=== PATIENT | female | born 1945 | race Caucasian/White ===

== ENCOUNTER 2023-08-27 11:03 | Emergency (ER) | payer MEDICARE, SELFPAY ==
[2023-08-27 11:04] VITALS: BP 121/77; PULSE 94; RESP 16; TEMP 36.6; O2SAT 97
[2023-08-27 11:39] LABS: Bedside Glucose 250 mg/dL (74-106)
--- NOTE | 2023-08-27 12:34 | EDS_ITS ---
HPI HPI - URI History of Present Illness Chief Complaint: Sore Throat Narrative Narrative: 78-year-old female with fever, chills, body aches. She has rhinorrhea and congestion. Symptom onset about 5 days ago. Patient concerned she has influenza. Patient states she called her friend for advice on what to do and her friend told her to call EMS to her house and they would test her for COVID- 19 and take a swab to the hospital however when EMS arrive they determined she would need to be transported for this. Patient denies any chest pain or shortness of breath. No nausea or vomiting. Patient states she recently moved here and does not have a PCP. She did not get an [id number] COVID-19 test. She believes she likely became sick over the s when she was around groups of people. ROS ROS ED Constitutional Constitutional ED: Reports chills and fever(s); Denies sweats Eyes Eyes: Denies blurry vision or change in vision ENT ENT ED: Denies ear pain or sore throat Cardiovascular Cardiovascular: Denies chest pain, palpitations or racing heartbeat Respiratory/Chest Respiratory/Chest: Reports cough; Denies dyspnea or sputum Gastrointestinal Gastrointestinal: Denies abdominal pain, constipation, diarrhea, nausea or vomiting Genitourinary Genitourinary ED: Denies dysuria, hematuria or urinary frequency Musculoskeletal Musculoskeletal: Reports myalgias; Denies arthralgias or neck pain Integumentary Denies abscess, Abrasions or rash Neurologic Neurologic: Denies headache(s), paresthesias or weakness Psychiatric Psychiatric: Denies anxiety, depression, suicidal ideation or suicidal thoughts Endocrine Endocrinology: Denies polydipsia or polyuria [facility] Medical History Depression Hypertension Type 2 diabetes mellitus Allergy/AdvReac Type Severity Reaction Status Date / Time No Known Allergies Allergy Verified 08/27/23 11:06 Social History Smoking Status: Never smoker EXAM Physical Exam Const Vital Signs: 08/27/23 11:04 Temperature 97.8 F Temperature Source Temporal Pulse Rate 94 Respiratory Rate 16 Blood Pressure 121/77 H Blood Pressure Mean 91 Pulse Ox 97 Oxygen Delivery Method Room Air Positive well nourished General Appearance ED: NAD; Negative for pallor HEENT Reports moist mucous membranes normocephalic and atraumatic Eyes PERRL and EOMs intact bilaterally Neck no lymphadenopathy and supple Resp normal respiratory effort and clear to auscultation bilaterally Auscultation: Negative for rales, rhonchi or wheezes Cardio Rate: regular rate Rhythm: regular rhythm GI non-tender Neuro oriented x3 and CN's II-XII intact bilaterally Sensorium / Orientation: alert Psych mental status grossly normal Mood & Affect: anxious Skin General Skin Exam: Negative for jaundice or pallor MDM MDM MDM Narrative Medical decision making narrative: Presenting with viral symptoms. Differential includes COVID-19, influenza, pneumonia. Vital signs are stable she is afebrile. Lungs are clear to auscultation bilaterally. Heart regular rate and rhythm without murmur. No red flag signs or symptoms. Patient tested for COVID-19 and influenza test positive for COVID. Patient is already on day 5 and no believe she needs any Paxlovid. Again her vital signs are normal. I feel she will likely recover the next couple of days. Return precautions were discussed. Impression: 1. COVID-19 Lab Data Attestation: I reviewed the patient's lab results. Labs: Laboratory Results - last 24 hr 08/27/23 11:22 POC Glucose 250 H Discharge Plan Triage Chief Complaint: Sore Throat ED Provider: Arsen Knapp Dx/Rx/DC Orders Instructions: Coronavirus Disease 2019 (COVID-19): Overview Primary Care Provider: NOT,DEFINED Referrals: Kashmir Silva MD [Med Staff - Active Staff] - 3-5 Days NOT,DEFINED [Primary Care Provider] - Disposition Disposition: Home, Self Care
[2023-08-27 13:07] VITALS: BP 120/83; PULSE 82; RESP 18; O2SAT 97
== END 2023-08-27 13:51 | disposition home or self-care (01) ==
PROVIDERS: Emergency Provider Student in an Organized Health Care Education/Training Program; Visit Provider Student in an Organized Health Care Education/Training Program
DX: U07.1 COVID-19 (principal); E11.9 Type 2 diabetes mellitus without complications
CPT/HCPCS: 82962; 87428; 99284

== ENCOUNTER 2023-09-13 13:36 | Observation (INO) | payer MEDICARE, SELFPAY ==
[2023-09-13 13:38] VITALS: BP 150/76; PULSE 100; RESP 11; TEMP 37.6; O2SAT 98; BMI 33.3
[2023-09-13 13:43] VITALS: BP 150/76; PULSE 97; RESP 16; TEMP 37.6; O2SAT 99
--- NOTE | 2023-09-13 14:11 | CT_ITS ---
STUDY: CT ABDOMEN AND PELVIS WITH CONTRAST REASON FOR EXAM: Female, 78 years old. Two-week history of cramping abdominal pain. RADIATION DOSAGE (If Supplied By Facility): CTDIvol = ( 20.57 ) mGy, DLP = ( 1095.55 ) mGycm TECHNIQUE: Transaxial images were obtained from the dome of the diaphragm to the symphysis pubis without oral contrast. IV 100mL Isovue-300 was administered. Sagittal and coronal images were reconstructed. Individualized dose optimization techniques were used for this CT. COMPARISON: None. FINDINGS: Calcified granuloma in the right lower lobe. Coronary artery calcification. Normal liver. Possible sludge or small gallstones in the gallbladder lumen. Normal spleen. Normal pancreas. Normal bilateral adrenal glands. Bilateral renal cysts. The largest cyst in the left kidney measures 2.8 cm x 2.6 cm. There is a nonobstructive 6.6 mm calculus in the lower pole calyx of the right kidney. There is a small hiatal hernia. Normal small intestine. There is circumferential wall thickening of the distal descending colon at the junction with the sigmoid colon with pericolonic inflammatory changes. This may represent colitis although a mass cannot be excluded. This measures 4.1 cm x 4.9 cm. The appendix is visualized and appears normal. There is diffuse atherosclerotic calcification of the abdominal aorta and its major visceral branches., without a demonstrated aneurysm. Normal inferior vena cava. Normal retroperitoneum. Normal urinary bladder. Normal abdominal wall. Bilateral total hip replacement causes beam hardening artifact in the pelvis. The pelvis cannot be assessed due to the artifacts. Diffuse degenerative changes of the lumbar spine. CT/Abdomen/Pelvis W IV Cont ONLY IMPRESSION: Inflammatory changes and possible mass lesion in the distal descending colon at the junction with the sigmoid colon as described. Bilateral renal cysts. Nonobstructive right intrarenal calculus. Questionable small gallstones versus sludge in the gallbladder lumen. Electronically Signed: Adam Salazar MD at 15:34 EST ,
--- NOTE | 2023-09-13 14:16 | EDS_ITS ---
HPI HPI - GI History of Present Illness Chief Complaint: Abd Pain Detail of Chief Complaint: Abdominal pain Informant: patient Narrative Narrative: Patient presents to the emergency room with complaint of abdominal pain that she has had off and on since the day after [place]. Patient states that she started getting sick with sore throat and little bit of a cough and came to the emergency department where she was diagnosed with COVID-19 and was told to take ibuprofen. Since then she has had intermittent abdominal cramping. Cramping worse over the last several days. She denies nausea or vomiting or diarrhea. She denies urinary symptoms. She denies blood in her stool or black tarry stool. Patient states she had a follow-up appointment with a physician 3 days ago and was told to just wear a mask for the next 4 days. Patient tells me she has had no prior abdominal surgeries. PFSH PFS Medical History Depression Hypertension Type 2 diabetes mellitus Home Medications aspirin 81 mg capsule 81 mg PO DAILY 09/13/23 [History Last Taken Unknown] atenolol 50 mg tablet 50 mg PO Q24H 09/13/23 [History Last Taken Unknown] levothyroxine 25 mcg tablet 25 mcg PO DAILY 09/13/23 [History Last Taken Unknown] lisinopril 10 mg tablet 10 mg PO DAILY 09/13/23 [History Last Taken Unknown] metformin 500 mg tablet,extended release 24 hr 500 mg PO DAILY 09/13/23 [History Last Taken Unknown] sertraline 50 mg tablet 50 mg PO DAILY 09/13/23 [History Last Taken Unknown] simvastatin 80 mg tablet 80 mg PO QHS 09/13/23 [History Last Taken Unknown] triamterene 37.5 mg-hydrochlorothiazide 25 mg capsule 1 cap PO DAILY 09/13/23 [H istory Last Taken Unknown] Allergy/AdvReac Type Severity Reaction Status Date / Time No Known Allergies Allergy Verified 08/27/23 11:06 Social History Smoking Status: Never smoker ROS ROS ED Review of Systems ROS Unobtainable: other Constitutional Constitutional ED: Reports lethargy; Denies chills, fever(s), sweats or weight loss Eyes Eyes: Denies blurry vision, change in vision or diplopia ENT ENT ED: Denies rhinorrhea or sore throat Cardiovascular Cardiovascular: Denies chest pain, orthopnea or racing heartbeat Respiratory/Chest Respiratory/Chest: Denies cough, dyspnea, dyspnea on exertion, orthopnea or sputum Gastrointestinal Gastrointestinal: Reports abdominal pain; Denies diarrhea, nausea or vomiting Genitourinary Genitourinary ED: Denies dysuria, hematuria or urinary frequency Musculoskeletal Musculoskeletal: Denies arthralgias, back pain, myalgias or neck pain Integumentary Denies abscess, Abrasions or rash Neurologic Neurologic: Denies headache(s) or weakness Psychiatric Psychiatric: Denies anxiety, depression or suicidal thoughts Endocrine Endocrinology: Denies polydipsia, polyphagia or polyuria Hematologic/Lymphatic Hematologic/Lymphatic: Denies easy bleeding, easy bruising or lymphadenopathy Allergic/Immunologic Allergic/Immunologic ED: Denies mouth swelling, tongue swelling or urticaria EXAM Physical Exam Const Vital Signs: 09/13/23 13:38 09/13/23 13:43 09/13/23 15:02 Temperature 99.6 F H 99.6 F H Temperature Source Oral Oral Pulse Rate 100 97 85 Respiratory Rate 11 L 16 Blood Pressure 150/76 H 150/76 H 108/80 Blood Pressure Mean 100 100 89 Pulse Ox 98 99 Oxygen Delivery Method Room Air Room Air Positive well nourished and well developed General Appearance ED: well developed and NAD HEENT Reports TM's clear and moist mucous membranes normocephalic and atraumatic; Negative for trauma or tenderness Tympanic Membrane ED: Yes TM's clear Eyes PERRL and EOMs intact bilaterally General Eye ED: Negative for pale conjunctiva or scleral icterus Neck no lymphadenopathy, supple and no JVD General: Negative for tenderness Chest Wall inspection of chest normal and palpation of chest normal Chest: Negative for tenderness Resp normal respiratory effort and clear to auscultation bilaterally Effort and Inspection: Negative for respiratory distress or pain with movement Auscultation: Negative for rhonchi, wheezes or diminished lung sounds Cardio regular rate, regular rhythm, S1 normal heart sound, S2 normal heart sound and no murmurs Peripheral Pulses: pulses 2+ throughout GI normal to inspection, nondistended, normoactive bowel sounds, soft to palpation, non-distended and no masses GI Narrative: Mild diffuse tenderness over the suprapubic region as well as diffusely. There is no rebound, rigidity, or peroneal signs. No masses palpated. Back/Spine no CVA tenderness and no thoracic nor lumbar tenderness Extremity normal to inspection General Extremety ED: Negative for edema General Extremity: Negative for edema Neuro oriented x3, CN's II-XII intact bilaterally, no sensory deficits noted and gait normal Sensorium / Orientation: awake, alert, oriented to person, oriented to place and oriented to time Motor Exam: strength 5/5 throughout and strength abnormal Psych mental status grossly normal Skin no rashes or lesions noted and no wounds MDM MDM MDM Narrative Medical decision making narrative: Presents with intermittent abdominal pain for about 3 weeks. In the differential would be diverticulitis versus IBS or constipation or other acute process. IV line established. CBC with differential obtained showed a normal white count of 10.7 with hemoglobin 13 and platelet count of 191. Chemistries unremarkable. LFTs normal. Lactate normal at 1.2. Lipase normal at 36. Urinalysis was normal. CT scan of the abdomen pelvis with IV contrast showed a left colon thickening which could indicate colitis versus an inflammatory mass. Discussed results with patient. Also spoke with general surgeon on-call Dr. Galeano who will evaluate patient in the emergency department. I was asked to have patient admitted by medicine. I did start patient on Cipro and Flagyl. Will discuss with hospitalist for admission. Lab Data Attestation: I reviewed the patient's lab results. Labs: Laboratory Results - last 24 hr 09/13/23 09/13/23 13:45 15:00 WBC 10.7 RBC 4.40 Hgb 13.1 Hct 39.9 MCV 90.7 MCH 29.8 MCHC 32.8 RDW Std Deviation 40.8 RDW Coeff of Cristiane 12.2 Plt Count 191 MPV 11.3 Immature Gran % (Auto) 0.600 Neut % (Auto) 79.3 H Lymph % (Auto) 12.4 L [place] % (Auto) 6.9 Eos % (Auto) 0.4 Baso % (Auto) 0.4 Absolute Neuts (auto) 8.5 H Absolute Lymphs (auto) 1.32 Nucleated RBC % 0 Sodium 139 Potassium 3.6 Chloride 107 Carbon Dioxide 24.0 Anion Gap 8 BUN 10 Creatinine 0.70 Estim Creat Clear Calc 43.63 Est GFR (MDRD) Af Amer 104 Est GFR (MDRD) Non-Af 86 BUN/Creatinine Ratio 14.3 Glucose 126 H Lactic Acid 1.2 Calcium 9.0 Total Bilirubin 0.80 AST 16 ALT 16 Alkaline Phosphatase 95 Total Protein 7.3 Albumin 3.4 Globulin 3.9 Albumin/Globulin Ratio 0.9 Lipase 36 Urine Color Yellow Urine Clarity Clear Urine pH 6.5 Ur Specific [place] 1.010 Urine Protein 15 H Urine Glucose (UA) Normal Urine Ketones Negative Urine Occult Blood Negative Urine Nitrite Negative Urine Bilirubin Negative Urine Urobilinogen Normal Ur Leukocyte Esterase 25 H Urine RBC 0 SEEN Urine WBC 0-5 SEEN Ur Squamous Epith Cells 0-5 SEEN Urine Bacteria RARE Urine Mucus 0 SEEN Radiography Diagnostic Testing: Clinical Impression(s) from Imaging Studies Abdomen/Pelvis CT 09/13/23 14:11 IMPRESSION: Inflammatory changes and possible mass lesion in the distal descending colon at the junction with the sigmoid colon as described. Bilateral renal cysts. Nonobstructive right intrarenal calculus. Questionable small gallstones versus sludge in the gallbladder lumen. Electronically Signed: Adam Salazar MD at 15:34 EST , Discharge Plan Dx/Rx/DC Orders Clinical Impression: Colonic mass, Colitis, Abdominal pain Disposition Disposition: Acute Care [facility]
[2023-09-13] MEDS: 0.9% Normal Saline (1000mL) 1,000 ML 125 ML IV ×2 (14:21→22:07)
[2023-09-13 14:28] LABS: Absolute Lymphocyte Count 1.32 X10^3/uL (0.83-4.51); Absolute Neutrophil Count 8.5 X10^3/uL (2.0-7.7); Basophil# 0.04 X10^3/uL; Basophil% 0.4 % (0-1); Eosinophil# 0.04 X10^3/uL; Eosinophils% 0.4 % (0-5); Hematocrit 39.9 % (37-47); Hemoglobin 13.1 g/dL (12.0-15.0); Lymphocyte # 1.32 X10^3/ul (0.83-4.51); Lymphocyte % 12.4 % (19-41); Mean Corp Hgb Conc 32.8 g/dL (32-36); Mean Corpuscular Hgb 29.8 pg (27.0-32.0); Mean Corpuscular Volume 90.7 fL (81-99); Mean Platelet Vol. 11.3 fl (6.2-12.0); Monocyte# 0.74 X10^3/uL; Monocyte% 6.9 % (0-10); NRBC Flagged by Analyzer 0 % (0-5); Neutrophil # 8.45 X10^3/uL (2.7-7.7); Neutrophil % 79.3 % (47-70); Platelet Count 191 K/mm3 (150-450); RBC Distribution Width CV 12.2 % (11.6-14.6); RBC Distribution Width SD 40.8 fl (35.1-43.9); White Blood Count 10.7 K/mm3 (4.4-11.0)
[2023-09-13 14:40] LABS: Lactic Acid 1.2 mmol/L (0.4-1.9)
[2023-09-13 14:41] LABS: ALB/GLOB Ratio 0.9 RATIO (0.9-2.4); AST(SGOT) 16 U/L (15-37); Alanine Aminotransfer ALT/SGPT 16 U/L (13-56); Albumin, Serum 3.4 g/dL (3.2-5.0); Alkaline Phosphatase 95 U/L (45-117); Anion Gap 8 (5-15); BUN 10 mg/dL (7-18); BUN/Creat Ratio 14.3 RATIO (10-20); Chloride 107 mmol/L (98-107); EST Glomerular Filtration Rate 86 mL/min (>60); Est Glom Filt Rate - Afr Amer 104 mL/min (>60); Estimated Creatinine Clearance 43.63 ml/min; Globulin 3.9 g/dL (2.2-4.2); Glucose 126 mg/dL (74-106); Lipase 36 U/L (13-75); Potassium 3.6 mmol/L (3.5-5.1); Protein, Total 7.3 g/dL (6.4-8.2); Sodium Level 139 mmol/L (136-145)
[2023-09-13 15:02] VITALS: BP 108/80; PULSE 85
[2023-09-13 15:09] LABS: Mucous, Urine 0 SEEN /hpf (<or=2+); Red Blood Cells-Urine 0 SEEN /hpf (0-5)
[2023-09-13 15:13] LABS: Color, Urine Yellow (Yellow); Glucose, Dipstick Normal (Normal); Ketone-Dipstick Negative (Negative); Leukocyte Esterase-Dipstick 25 /ul (Negative); Nitrite-Dipstick Negative (Negative); Occult Blood-Urine Negative /ul (Negative); Protein-Dipstick 15 mg/dl (Negative); Urine Bilirubin Dipstick Negative (Negative); Urine Clarity Clear (Clear); Urine Urobilinogen Normal (Normal); Urine pH 6.5 (5.0 - 8.0)
[2023-09-13 15:21] LABS: Bacteria RARE /hpf (None Seen); Squamous Epithelial Cells - UA 0-5 SEEN /hpf (5-10); White Blood Cells 0-5 SEEN /hpf (0-5)
[2023-09-13] MEDS: Ciprofloxacin 400 MG/200 ML BAG 200 MG IV (15:50)
--- NOTE | 2023-09-13 15:58 | NURSING ---
DR RIMMA LEIVA
--- NOTE | 2023-09-13 16:04 | NURSING ---
MED SURG SHANKS ABD PAIN, COLITIS, COLON MASS
[2023-09-13] MEDS: Ondansetron 4 MG/2 ML Vial IV (16:18)
[2023-09-13] MEDS: Morphine 4 MG/ML Syringe IV ×2 (16:20→17:48)
--- NOTE | 2023-09-13 16:27 | HP.PCM.HOS_ITS ---
HPI - General General Date of Admission: 09/13/23 Date of Service: 09/13/23 Chief Complaint: Abd pain/cramping HPI Narrative JOSEFA AYALA, is a 78-year-old female history of depression, hypertension, type 2 diabetes presented to [facility] 09/13/2023 with abdominal pain off and on since . She has been feeling that she has been getting sick with sore throat and slight cough and had presented to the emergen cy department and was diagnosed with COVID and told to take ibuprofen. Since that time she has been having intermittent abdominal cramping that is worsened over the past several days without urinary symptoms, nausea, vomiting or diarrhea. In ED lab workup fairly unremarkable however CT of abdomen with inflammatory changes and possible mass lesion in distal descending colon at the junction with the sigmoid colon and questionable small gallstones versus sludge in gallbladder lumen. Case was discussed with surgeon who will see patient in consult, hospitalist contacted for admission. Patient seen at bedside and does report the cramping over the past couple weeks mostly in her lower abdomen but last night it was much worse and as it has not been improving that prompted her to come to the ED. She reports all other COVID symptoms resolved and has had no fevers or chills, no diarrhea and denies nausea or vomiting. Does not drink fluids very well but said her appetite is good. No other focal complaints. [facility] Medical History (Updated 09/13/23 @ 16:[address] Mary Anne Pyle MD) Depression Hypertension Type 2 diabetes mellitus Home Medications aspirin 81 mg tablet,delayed release (Adult Low Dose Aspirin) 81 mg PO DAILY HEART HEALTH 09/13/23 [History Last Taken 09/13/23] atenolol 50 mg tablet 50 mg PO Q24H BLOOD PRESSURE 09/13/23 [History Last Taken 09/13/23] calcium carbonate 600 mg-vitamin D3 20 mcg (800 unit) chewable tablet (Caltrate 600 plus D) 1 tab PO DAILY SUPPLEMENT 09/13/23 [History Last Taken 09/13/23] levothyroxine 25 mcg tablet 25 mcg PO DAILY THYROID 09/13/23 [History Last Taken 09/13/23] lisinopril 10 mg tablet 10 mg PO DAILY BLOOD PRESSURE 09/13/23 [History Last Taken 09/13/23] metformin 500 mg tablet,extended release 24 hr 500 mg PO DAILY DIABETES 09/13/23 [History Last Taken 09/13/23] multivitamin 1 tab PO DAILY HEART HEALTH 09/13/23 [History Last Taken 09/13/23] sertraline 50 mg tablet 50 mg PO DAILY DEPRESSION 09/13/23 [History Last Taken 09/13/23] simvastatin 80 mg tablet 80 mg PO QHS CHOLESTEROL 09/13/23 [History Last Taken 09/12/23] triamterene 37.5 mg-hydrochlorothiazide 25 mg capsule 1 cap PO DAILY BLOOD PRESSURE 09/13/23 [History Last Taken 09/13/23] Allergy/AdvReac Type Severity Reaction Status Date / Time No Known Allergies Allergy Verified 08/27/23 11:06 Social History Smoking Status: Never smoker ROS ROS Narrative General: Denies fever/chills HENT: Denies headache, denies stuffy nose, denies sore throat EYES: Denies changes in vision Resp: Denies cough, denies shortness of breath Cardiac: Denies chest pain GI: Has had abdominal cramping, denies changes in bowel, denies nausea/vomiting : Denies changes in urination Extremity: Denies swelling MSK: Denies weakness Neuro: Denies any numbness/tingling Heme: Denies any bleeding or bruising Skin: Denies rashes Psychiatric: Feels a little bit out of it Vital Signs Vital Signs Vital Signs: 09/13/23 13:38 09/13/23 13:43 09/13/23 15:02 Temperature 99.6 F H 99.6 F H Temperature Source Oral Oral Pulse Rate 100 97 85 Respiratory Rate 11 L 16 Blood Pressure 150/76 H 150/76 H 108/80 Blood Pressure Mean 100 100 89 Pulse Ox 98 99 Oxygen Delivery Method Room Air Room Air Weight Weight: 96.4 kg Body Mass Index (BMI) 33.3 Physical Exam Narrative General: Alert, no apparent distress HEENT: Atraumatic, normocephalic Eyes: Anicteric, normal conjunctiva, extraocular movements grossly intact Neck: Supple Respiratory: Clear to auscultation bilaterally, normal respiratory effort Cardiovascular: Regular rate and rhythm GI: Soft, no rebound, guarding, rigidity, nondistended Extremities: No edema Musculoskeletal: Moving all extremities Neuro: No overt focal neurological deficits Skin: No rashes appreciated Psych: Cooperative Results Lab / Micro Data 09/13/23 13:45 09/13/23 13:45 Labs: Laboratory Results - last 24 hr 09/13/23 13:45: WBC 10.7, RBC 4.40, Hgb 13.1, Hct 39.9, MCV 90.7, MCH 29.8, MCHC 32.8, RDW Std Deviation 40.8, RDW Coeff of Cristiane 12.2, Plt Count 191, MPV 11.3, Immature Gran % (Auto) 0.600, Neut % (Auto) 79.3 H, Lymph % (Auto) 12.4 L, [place] % (Auto) 6.9, Eos % (Auto) 0.4, Baso % (Auto) 0.4, Absolute Neuts (auto) 8.5 H, Absolute Lymphs (auto) 1.32, Nucleated RBC % 0, Sodium 139, Potassium 3.6, Chloride 107, Carbon Dioxide 24.0, Anion Gap 8, BUN 10, Creatinine 0.70, Estim Creat Clear Calc 43.63, Est GFR (MDRD) Af Amer 104, Est GFR (MDRD) Non-Af 86, BUN/Creatinine Ratio 14.3, Glucose 126 H, Lactic Acid 1.2, Calcium 9.0, Total Bilirubin 0.80, AST 16, ALT 16, Alkaline Phosphatase 95, Total Protein 7.3, Albumin 3.4, Globulin 3.9, Albumin/Globulin Ratio 0.9, Lipase 36 09/13/23 15:00: Urine Color Yellow, Urine Clarity Clear, Urine pH 6.5, Ur Specific [place] 1.010, Urine Protein 15 H, Urine Glucose (UA) Normal, Urine Ketones Negative, Urine Occult Blood Negative, Urine Nitrite Negative, Urine Bilirubin Negative, Urine Urobilinogen Normal, Ur Leukocyte Esterase 25 H, Urine RBC 0 SEEN, Urine WBC 0-5 SEEN, Ur Squamous Epith Cells 0-5 SEEN, Urine Bacteria RARE, Urine Mucus 0 SEEN Imagaing Radiology Impression Abdomen/Pelvis CT 09/13/23 14:11 IMPRESSION: Inflammatory changes and possible mass lesion in the distal descending colon at the junction with the sigmoid colon as described. Bilateral renal cysts. Nonobstructive right intrarenal calculus. Questionable small gallstones versus sludge in the gallbladder lumen. Electronically Signed: Adam Salazar MD at 15:34 EST , Assessment & Plan Assessment/Plan (1) Abdominal pain: (2) Type 2 diabetes mellitus: (3) Depression: (4) Hypertension: PLAN: Plan #Colitis versus colonic mass -CT of abdomen with inflammatory changes and possible mass lesion in distal descending colon at the junction with the sigmoid colon -Patient with low-grade temp and was started on Cipro and Flagyl in ED, will continue antibiotics at this time -Surgery consulted -IV fluids and supportive care -Clear liquid diet -Discussed with surgery, unclear if infectious versus ischemic versus mass, may have rectal contrast CT tomorrow #Hypothyroidism -Continue Synthroid #Type 2 diabetes mellitus -Glucose checks and sliding scale insulin -Holding metformin # Hypertension -Continue atenolol and lisinopril -Given patient seems to be somewhat dehydrated so we will hold triamterene hydrochlorothiazide today # History of depression -Continue sertraline #DVT ppx: Lovenox subcu Mary Anne Pyle MD Time spent in the patient's overall evaluation,decision-making process, review of diagnostic data, adjustment of management, discussion with other providers, nursing nursing and ancillary staff involved in patient's care documentation, 55 minutes Charges/Coding Visit Charges Inpatient E&M: 37631 Init Hosp L2
--- NOTE | 2023-09-13 17:30 | EX.PCM.CON.S ---
Assessment & Plan Assessment/Plan (1) Colitis: PLAN: Plan This is an 78-year-old female, reasonably healthy for her age, who presents with a little over 2 weeks of crampy abdominal discomfort in the midst of a recent COVID infection and some intensification of that crampy symptom in the last 24 hours. Patient has no leukocytosis with CBC, but there is a left shift and CT imaging of the abdomen and pelvis is suggestive of colitis?although radiology states they cannot exclude a mass. Given the acuity of patient's time course as far as the intensification of her pain symptoms and absence of obstructive symptomology, per history, I am inclined to believe this is a presentation of segmental colitis. Patient does have a significant atherosclerotic burden as evidenced in her calcification seen on CT imaging. She also acknowledges that she has not done the best recently (or as a general rule) that staying hydrated. I would like to empirically treat her for both possible etiologies and tomorrow obtain a rectal contrast CT to try to better determine if the finding in her sigmoid colon represents a mass lesion versus inflammation. If it seems doubly likely that this is inflammation I would plan for outpatient diagnostic colonoscopy as it has been many years since patient's past endoscopic evaluation and her present health otherwise would permit her as a candidate to undergo this procedure. Therefore recommend: ? Clear liquid diet ? IV fluid resuscitation with empiric IV antibiotic therapy ? Repeat CT imaging with rectal and IV contrast tomorrow ? Serial abdominal exams Above has been discussed with patient's primary hospitalist, Dr. Pyle. HPI Consult Data Date of Consult: 09/13/23 HPI Narrative Reason for Consultation: Chronic crampy abdominal pain HPI Narrative: JOSEFA AYALA, is a 78 F, with a past medical history of depression, hypertension, diabetes, arthritis, and fibromyalgia, who presents to [facility] with complaints of belly cramps that began the day after Thanksgiving. She shares that her appetite and bowel frequency remain normal throughout these cramps and she denies any recent straining, notice of bloody stools, or stool caliber change. She simply shares that the cramps became more severe yesterday and they have persisted today. She does acknowledge that she was diagnosed with COVID in the past couple of weeks and the pain seemed to persist with that diagnosis. She denies noting any fevers at home. Patient's ER workup is notable for CBC with normal WBC and normal lactate. CT imaging of the abdomen pelvis shows a area 4.1 x 4.9 cm in the sigmoid colon that is thickened and shows haziness which may represent colitis , but mass cannot be excluded . Ms. Ayala is recently relocated to the [place] area as of 08/15/2023 after spending some significant time away living in [place] with her daughter. She shares that it has been probably 20 years since her last colonoscopy and she did have at least a couple . She also reports that she is having difficulty recalling other historical items, but does believe that her father had colon cancer before he at the age of 56. [facility] Medical History (Updated 09/13/23 @ 16:[address] Mary Anne Pyle MD) Depression Hypertension Type 2 diabetes mellitus Home Medications aspirin 81 mg tablet,delayed release (Adult Low Dose Aspirin) 81 mg PO DAILY HEART HEALTH 09/13/23 [History Last Taken 09/13/23] atenolol 50 mg tablet 50 mg PO Q24H BLOOD PRESSURE 09/13/23 [History Last Taken 09/13/23] calcium carbonate 600 mg-vitamin D3 20 mcg (800 unit) chewable tablet (Caltrate 600 plus D) 1 tab PO DAILY SUPPLEMENT 09/13/23 [History Last Taken 09/13/23] levothyroxine 25 mcg tablet 25 mcg PO DAILY THYROID 09/13/23 [History Last Taken 09/13/23] lisinopril 10 mg tablet 10 mg PO DAILY BLOOD PRESSURE 09/13/23 [History Last Taken 09/13/23] metformin 500 mg tablet,extended release 24 hr 500 mg PO DAILY DIABETES 09/13/23 [History Last Taken 09/13/23] multivitamin 1 tab PO DAILY HEART HEALTH 09/13/23 [History Last Taken 09/13/23] sertraline 50 mg tablet 50 mg PO DAILY DEPRESSION 09/13/23 [History Last Taken 09/13/23] simvastatin 80 mg tablet 80 mg PO QHS CHOLESTEROL 09/13/23 [History Last Taken 09/12/23] triamterene 37.5 mg-hydrochlorothiazide 25 mg capsule 1 cap PO DAILY BLOOD PRESSURE 09/13/23 [History Last Taken 09/13/23] Allergy/AdvReac Type Severity Reaction Status Date / Time No Known Allergies Allergy Verified 08/27/23 11:06 Social History Smoking Status: Never smoker ROS Gastrointestinal Gastrointestinal: Reports abdominal pain; Denies change in bowel habits, constipation, diarrhea, hematochezia, melena, nausea, rectal bleeding or vomiting Lab / Micro Data 09/13/23 13:45 09/13/23 13:45 Labs: Laboratory Results - last 24 hr 09/13/23 13:45: WBC 10.7, RBC 4.40, Hgb 13.1, Hct 39.9, MCV 90.7, MCH 29.8, MCHC 32.8, RDW Std Deviation 40.8, RDW Coeff of Cristiane 12.2, Plt Count 191, MPV 11.3, Immature Gran % (Auto) 0.600, Neut % (Auto) 79.3 H, Lymph % (Auto) 12.4 L, [place] % (Auto) 6.9, Eos % (Auto) 0.4, Baso % (Auto) 0.4, Absolute Neuts (auto) 8.5 H, Absolute Lymphs (auto) 1.32, Nucleated RBC % 0, Sodium 139, Potassium 3.6, Chloride 107, Carbon Dioxide 24.0, Anion Gap 8, BUN 10, Creatinine 0.70, Estim Creat Clear Calc 43.63, Est GFR (MDRD) Af Amer 104, Est GFR (MDRD) Non-Af 86, BUN/Creatinine Ratio 14.3, Glucose 126 H, Lactic Acid 1.2, Calcium 9.0, Total Bilirubin 0.80, AST 16, ALT 16, Alkaline Phosphatase 95, Total Protein 7.3, Albumin 3.4, Globulin 3.9, Albumin/Globulin Ratio 0.9, Lipase 36 09/13/23 15:00: Urine Color Yellow, Urine Clarity Clear, Urine pH 6.5, Ur Specific [place] 1.010, Urine Protein 15 H, Urine Glucose (UA) Normal, Urine Ketones Negative, Urine Occult Blood Negative, Urine Nitrite Negative, Urine Bilirubin Negative, Urine Urobilinogen Normal, Ur Leukocyte Esterase 25 H, Urine RBC 0 SEEN, Urine WBC 0-5 SEEN, Ur Squamous Epith Cells 0-5 SEEN, Urine Bacteria RARE, Urine Mucus 0 SEEN Imagaing Radiology Impression Abdomen/Pelvis CT 09/13/23 14:11 IMPRESSION: Inflammatory changes and possible mass lesion in the distal descending colon at the junction with the sigmoid colon as described. Bilateral renal cysts. Nonobstructive right intrarenal calculus. Questionable small gallstones versus sludge in the gallbladder lumen. Electronically Signed: Adam Salazar MD at 15:34 EST , Charges/Coding Visit Charges Inpatient E&M: 94702 Subs Hosp L2
[2023-09-13] MEDS: metroNIDAZOLE 500 MG/100 ML BAG 100 MG IV (17:45)
--- OUTSIDE RECORDS SUMMARY | 2023-09-13 19:10 | XMS RPT_ITS | CCD ---
Author Name Unknown Address [address] [facility] [facility] [address] [place] [address] Organization [facility] Care Team Providers Care Marketing Community Liaison Name Role Phone YOBANI CONSTANCE L Primary Care Unavailable YOBANI, CONSTANCE L Attending Unavailable YOBANI, CONSTANCE L Primary Care Unavailable YOBANI, CONSTANCE L Attending Unavailable YOBANI, CONSTANCE L Primary Care Unavailable JOSR CAMPA Attending Unavailab le YOBANI, CONSTANCE L Referring Unavailable YOBANI, CONSTANCE L Primary Care Unavailable YOBANI, CONSTANCE L Primary Care Unavailable YOBANI, CONSTANCE L Attending Unavailable YOBANI, CONSTANCE L Referring Unavailable Problems Active Problems Problem Classification Problem Date Documented Date Episodic/Chronic Diabetes mellitus with complications (1 source) Type 2 diabetes mellitus with diabetic polyneuropathy; Translations: [Type 2 diabetes mellitus with diabetic polyneuropathy (HCC)] Onset: 01-11-2023 Chronic Diabetes mellitus without complication (2 sources) Type 2 diabetes mellitus without complications; Translations: [Diabetes mellitus] Onset: 07-11-2023 Chronic Disorders of lipid metabolism (2 sources) Hyperlipidemia, unspecified; Translations: [Hyperlipidemia] Onset: 07-11-2023 Chronic Essential hypertension (2 sources) Essential (primary) hypertension; Translations: [Hypertensive disorder] Onset: 07-11-2023 Chronic Immunizations and screening for infectious disease (2 sources) Encounter for immunization; Translations: [Encounter for screening for other viral diseases] Onset: 01-05-2023 Episodic Mood disorders (2 sources) Major depressive disorder, recurrent, moderate; Translations: [Depression] Onset: 01-05-2023 Chronic Other nervous system disorders (1 source) Polyneuropathy, unspecified; Translations: [Polyneuropathy, unspecified] Onset: 01-11-2023 Chronic Thyroid disorders (2 sources) Hypothyroidism, unspecified; Translations: [Hypothyroidism] Onset: 07-11-2023 Chronic Unclassified (1 source) Medicare Annual Onset: 07-11-2023 Past or Other Problems Problem Classification Problem Date Documented Da te Episodic/Chronic Mycoses (1 source) Tinea unguium; Translations: [Tinea unguium] Onset: 01-11-2023 Episodic Other connective tissue disease (1 source) Pain in right toe(s); Translations: [Pain in right toe(s)] Onset: 01-11-2023 Episodic Other connective tissue disease (1 source) Pain in left toe(s); Translations: [Pain in left toe(s)] Onset: 01-11-2023 Episodic Other screening for suspected conditions (not mental disorders or infectious disease) (1 source) Encounter for screening mammogram for malignant neoplasm of breast; Translations: [Encounter for screening mammogram for malignant neoplasm of breast] Onset: 02-02-2023 Episodic Results Test Name Value Interpretation Reference Range Facil ity Encounters Encounter Date Encounter Type Care Provider Facility Start: 07-11-2023 End: 07-11-2023 ambulatory [facility] work Start: 07-11-2023 Encounter for genera l adult medical examination without abnormal findings [facility] Start: 02-02-2023 End: 02-03-2023 ambulatory [facility] work Start: 01-11-2023 End: 01-11-2023 ambulatory [facility] work Start: 01-05-2023 End: 01-05-2023 ambulatory [facility] work Procedures Date Procedure Procedure Detail Performing Clinician Start: 01-11-2023 Follow-up visit Follow-up JOSR CAMPA Start: 08-22-2022 Lipid panel CONSTANCE KAUR Payers Date Payer Category Payer Unknown [id number] 1945 Unknown [id number] 1945 Unknown [id number] 1945 Unknown [id number] 1945 Unknown [id number] Medicare [id number] Clinical Notes 03-16-2021 to 07-11-2023 Note Date & Type Note Facility 07-11-2023 Note Encounter Department : [facility] Progress Notes by MATTHEW Carpio at 07/11/2023 12:40 PM Author: MATTHEW CarpioService: -Author Type: Nurse Practitioner Filed: 07/11/2023 1:36 PMEncounter Date: 07/11/2023Status: Signed Computer Systems Support Specialist: MATTHEW Carpio (Nurse Practitioner) Estela Perez [address] [place] [id number] : 78 y.o.: 1945hone: [phone] (home) Encounter Date: 07/11/2023 Vitals BP 118/68 Pulse 89 Resp 17 Ht 5' 4 (1.626 m) Wt 204 lb 3.2 oz (92.6 kg) SpO2 98% BMI 35.05 kg/m? Chief Complaint Chief Complaint Patient presents with -Medicare Annual -Hypertension -Hyperlipidemia -Diabetes -Hypothyroidism HPI Patient presents today for Medicare wellness visit and also checkup on diabetes, hyperlipidemia, hypothyroidism and hypertension Health maintenance due: Diabetic foot exam-will be completed today Microalbumin-will be obtained today if possible Flu vaccine- will get today Wellness visit-completed today A1c which was ordered on 06-19-2023 (all labs were ordered on 06-19-2023 but not completed as of yet)-fjvkh-ls-qrya will be obtained today Concerns today: none BP at home: not checking Sugar at home: does not check Diet: tries but occas has sweets Wt Readings from Last 3 Encounters: 07/11/23 : 204 lb 3.2 oz (92.6 kg) 02/02/23 : 209 lb (94.8 kg) 01/05/23 : 203 lb 8 oz (92.3 kg) The patient is here for the following problems were assessed/reviewed at today's visit. Pertinent data reviewed with patient at visit Review of Systems: As noted in HPI Review of Systems Constitutional: Negative. HENT: Negative. Eyes: Negative. Respiratory: Negative. Cardiovascular: Negative. Gastrointestinal: Negative. Endocrine: Negative. Genitourinary: Negative. Musculoskeletal: Negative. Skin: Negative. Allergic/Immunologic: Negative. Neurological: Negative. Hematological: Negative. Psychiatric/Behavioral: Negative. Physical Exam Physical Exam Vitals and nursing note reviewed. Constitutional: General: She is not in acute distress. Appearance: Normal appearance. She is not ill-appearing, toxic-appearing or diaphoretic. HENT: Head: Normocephalic and atraumatic. Right Ear: Tympanic membrane, ear canal and external ear normal. Left Ear: Tympanic membrane, ear canal and external ear normal. Mouth/Throat: Mouth: Mucous membranes are moist. Pharynx: Oropharynx is clear. Eyes: General: No scleral icterus. Right eye: No discharge. Left eye: No discharge. Extraocular Movements: Extraocular movements intact. Conjunctiva/sclera: Conjunctivae normal. Neck: Vascular: No carotid bruit. Cardiovascular: Rate and Rhythm: Regular rhythm. Pulses: Normal pulses. Heart sounds: Normal heart sounds. No murmur heard. No friction rub. No gallop. Pulmonary: Effort: Pulmonary effort is normal. No respiratory distress. Breath sounds: Normal breath sounds. No stridor. No wheezing, rhonchi or rales. Abdominal: General: Bowel sounds are normal. There is no distension. Palpations: Abdomen is soft. Tenderness: There is no abdominal tenderness. There is no guarding or rebound. Musculoskeletal: Cervical back: Normal range of motion and neck supple. No rigidity or tenderness. Right lower leg: No edema. Left lower leg: No edema. Lymphadenopathy: Cervical: No cervical adenopathy. Skin: General: Skin is warm and dry. Neurological: General: No focal deficit present. Mental Status: She is alert and oriented to person, place, and time. Mental status is at baseline. Psychiatric: Mood and Affect: Mood normal. Behavior: Behavior normal. Thought Content: Thought content normal. Judgment: Judgment normal. Recent Results (from the past 12 hour(s)) POCT glycated hemoglobin, total Collection Time: 07/11/23 11:55 AM ResultValueRef Range Hemoglobin A1C6.04.0 - 6.0 % % Current Outpatient Medications Ordered in Epic MedicationSigDispenseRefill -atenoloL (TENORMIN) 50 mg tabletTAKE 1 TABLET BY MOUTH EVERY DAY90 tablet3 -gabapentin (NEURONTIN) 300 mg capsuleTake 2 capsules (600 mg total) by mouth 3 times a day.90 [id number] -GENERIC AMB PRESCRIPTION RXDiabetic shoes with custom molded inserts. Indications: diabetes1 Device0 -ketoconazole (NIZORAL) 2 % shampooAPPLY TO SCALP / FACE WHEN WASHING HAIR ,LEAVE ON 5-10 MINS THEN RINSE. -levothyroxine (SYNTHROID) 25 mcg tabletTake 1 tablet (25 mcg total) by mouth daily. before [id number] tablet0 -lisinopriL (PRINIVIL) 10 mg tabletTake 1 tablet (10 mg total) by mouth daily.90 tablet3 -metFORMIN (GLUCOPHAGE-XR) 500 mg 24 hr tabletTAKE 1 TABLET BY MOUTH EVERY DAY (EVERY 24 HOURS)90 tablet0 -sertraline (ZOLOFT) 50 mg tabletTake 1 tablet (50 mg total) by mouth daily.90 tablet1 -simvastatin (ZOCOR) 80 mg tabletTAKE 1 TABLET BY MOUTH EVERYDAY AT [id number] tablet3 -triamterene-hydrochlorot (more content not included)... [facility] 05-26-2023 Note Encounter Department : [facility] Progress Notes by Lucie Heredia at 05/26/2023 10:53 AM Author: Lucie Manuelervice: -Author Type: Clerical Staff Filed: 05/26/2023 10:56 AMEncounter Date: 05/26/2023Status: Signed Computer Systems Support Specialist: Lucie Heredia (Clerical Staff) Diabetic Eye 12/19/2022 [facility] 05-09-2023 Note Encounter Department : [facility] Progress Notes by ROHAN Floyd LSW at 05/09/2023 10:11 AM Author: ROHAN Floyd LSWService: -Author Type: Administrative Support Manager Filed: 05/09/2023 11:02 AMEncounter Date: 05/09/2023Status: Signed Computer Systems Support Specialist: ROHAN Floyd LSW (Administrative Support Manager) Discharge Note Patient Name: Estela Perez Date: 05/09/23 Encounter Type: phone SW contacted patient for follow up. Patient mentions her depressed mood and dark thoughts. However she denies SI and HI. She states that is not an options for her because she believes that she will not go to [facility] if she does that. Patient declines referrals to therapy. She states she is not interested in this time. She continues to take her depression medications. Patient declines list of senior activities to help her get involved in the community. Patient states that people in this area just gossip and she doesn't feel like she is able to connect to people here. Patient states that she moved to this area to be with her daughter. However, since coming, her and her daughter had a fight at [employer]. Her daughter left her there without a ride. Now they have an estranged relationship and they only speak to each other on holidays. Because her and her daughter no longer have a good relationship, patient is working with a realtor and plans to move back to [place], [place]. Patient will hirer a [employer] that will help her pack her belongings up. However, patient states she may start collecting boxes on her own to pack up what she can and help reduce the costs of the move. Patient declines Social Work Service Needs at this time. SW will discharge patient and remove self from patient's care team. ROHAN Floyd LSW 05/09/2023 10:25 AM [facility] [phone] [facility] 05-03-2023 Note Encounter Department : [facility] Progress Notes by ROHAN Floyd LSW at 05/03/2023 10:38 AM Author: ROHAN Floyd LSWService: -Author Type: Administrative Support Manager Filed: 05/03/2023 10:40 AMEncounter Date: 05/03/2023Status: Signed Computer Systems Support Specialist: ROHAN Floyd LSW (Administrative Support Manager) CHRIS attempted to follow up. No answer. SW left a HIPAA compliant voicemail requesting a call back. If no return call, CHRIS will attempt again at a later date and time. ROHAN Floyd LSW 05/03/2023 10:39 AM [facility] [phone] [facility] 04-26-2023 Note Encounter Department : [facility] Progress Notes by RHOAN Floyd LSW at 04/26/2023 9:34 AM Author: ROHAN Floyd LSWService: -Author Type: Administrative Support Manager Filed: 04/26/2023 9:35 AMEncounter Date: 04/26/2023Status: Signed Computer Systems Support Specialist: ROHAN Floyd LSW (Administrative Support Manager) SW attempted to follow up. No answer. SW left a HIPAA compliant voicemail requesting a call back. If no return call, SW will attempt again at a later date and time. ROHAN Floyd LSW 04/26/2023 9:35 AM [facility] [phone] [facility] 04-05-2023 Note Encounter Department : [facility] Progress Notes by ROHAN Floyd LSW at 04/05/2023 11:51 AM Author: RHOAN Floyd LSWService: -Author Type: Administrative Support Manager Filed: 04/05/2023 12:40 PMEncounter Date: 04/05/2023Status: Signed Computer Systems Support Specialist: ROHAN Floyd LSW (Administrative Support Manager) Initial Assessment Patient Name: Estela Perez Date: 04/05/23 Encounter Type: Phone Reason for Initial Referral: Senior Activities Social Work Care Management Goal: Undetermined Outcome of Encounter: SW reviewed electronic medical record (EMR) and reached out to introduce self and services assess willingness to have SW assist with identified needs. Patient moved to this area two years ago and feels disconnected. Before she came, she had to sell her house and car. Patient felt connected to several people who could help her back home. But here, no one offers assistance. She uses [employer] to get to and from Medical appointments, but has to pay $12.75 to get to and from the grocery store down the road. Patient states several people have offered to take her including her daughter who is planning to take her tomorrow. However, no one is offering to consistently help her with her needs. Patient states she is already connected to the [place] [facility]. She declined need for senior activities at this time. Patient states that she has a celebration of life this weekend and will get to see her family there. Patient also reports that she is looking for to her high-school reunion scheduled in June. Patient reports feeling depressed. She declined resources for BH therapist, because she states she was seeing someone and realized she had a $75 co-payment with her insurance. Patient does not feel like she can afford that. Follow Up Needed: SW will follow up in several weeks to determine Social Work Service Need. ROHAN Floyd LSW 04/05/2023 12:33 PM [facility] [phone] [facility] 04-03-2023 Note Encounter Department : [facility] Progress Notes by ROHAN Floyd LSW at 04/03/2023 11:00 AM Author: ROHAN Floyd LSWService: -Author Type: Administrative Support Manager Filed: 04/03/2023 11:04 AMEncounter Date: 04/03/2023Status: Signed Computer Systems Support Specialist: ROHAN Floyd LSW (Administrative Support Manager) SW received a referral from Medication Assistance team to further assess community resource needs for the following concerns: Patient uses [employer] for transportation to and from medical appointments. Her neighbor takes her to and from grocery store. Patient does not have any other reliable transportation, because her children took away her car keys. Due to lack of transportation, patient is unable to warehouse picker her medications. Medication Assistance team provided her information on how to set up pharmacy deliveries. Patient reports being lonely and wanting to make friends. SW will reach out to discuss medication delivery system, senior activities, and AL. SW reviewed electronic medical record (EMR) on 04/03/2023 and will reach out to introduce self and services and assess willingness to have SW assist with identified needs. ROHAN Floyd LSW 04/03/2023 11:00 AM [facility] [phone] [facility] 02-21-2023 Note Encounter Department : [facility] Progress Notes by Brigida Plata CPhT at 02/21/2023 9:49 AM Author: Tamie Linares: -Author Type: Casing Flusher Filed: 04/07/2023 8:53 AMEncounter Date: 02/21/2023Status: Signed Computer Systems Support Specialist: Brigida Plata CPhT (Casing Flusher) Medication Adherence Outreach 04/07/23 Patient identified for potential non-adherence via notification from patient's insurance provider, [employer] Medicare Medication(s): Lisinopril 10 mg Provider: MATTHEW Carpio NOTE: Veena Sanchez (CHRIS) was able to reach out to the patient, please see her notes. Please reach out with any questions or concerns. Brigida Plata CPhT [facility] 02-21-2023 Note Encounter Department : [facility] Progress Notes by Brigida Plata CPhT at 02/21/2023 9:49 AM Author: Tamie Linares: -Author Type: Casing Flusher Filed: 04/03/2023 11:00 AMEncounter Date: 02/21/2023Status: Addendum Computer Systems Support Specialist: Brigida Plata CPhT (Casing Flusher) Related Notes: Original Note by Brigida Plata CPhT (Casing Flusher) filed at 03/31/2023 4:28 PM Medication Adherence Outreach 03/31/23 Patient identified for potential non-adherence via notification from patient's insurance provider, [employer] Medicare Medication(s): Lisinopril 10 mg Provider: MATTHEW Carpio Patient is identified for the below medication adherence intervention(s): Patient appears to be non-adherent due to fill history This is our first time reaching out to the patient. I did call the patient, and I was able to make contact with them. During my discussion with the patient, I found that she is a very lonely person. She has no transportation to get her to PU her medications, she is depressed, her family is too busy to visit with her. She moved up here from [place] to be closer to her family (within 10 minutes). She is nonadherent on her lisinopril because she has no way to warehouse picker her medications. I did discuss with her going through [employer] [facility], [facility], or a local pharmacy that offers delivery. I suggested contacting [employer] [facility] for [place], [place]. Please reach out with any questions or concerns. Brigida Plata CPhT [facility] 02-21-2023 Note Encounter Department : [facility] Progress Notes by Shilpa Miller CPhT at 02/21/2023 9:49 AM Author: Tamie Ceballos: -Author Type: Casing Flusher Filed: 02/21/2023 9:55 AMEncounter Date: 02/21/2023Status: Signed Computer Systems Support Specialist: Shilpa Miller CPhT (Casing Flusher) All Medication Therapy Problems Essential hypertension Current Medication: lisinopriL (PRINIVIL) 10 mg tablet Rationale: Payer Identified Adherence - Adherence - Adherence Recommendation: Confirmed Patient Adherent Status: Documented Note: Patient is adherent and is already receiving 90 day supply 02/21/2023 Hyperlipidemia Current Medication: triamterene-hydrochlorothiazide (DYAZIDE) 37.5-25 mg capsule Rationale: Payer Identified Adherence - Adherence - Adherence Recommendation: Confirmed Patient Adherent Status: Documented Note: Patient is adherent and is already receiving 90 day supply 02/21/2023 [facility] 02-21-2023 Note Encounter Department : [facility] Progress Notes by Brigida Plata CPhT at 02/21/2023 9:49 AM Author: Tamie Linares: -Author Type: Casing Flusher Filed: 04/03/2023 11:02 AMEncounter Date: 02/21/2023Status: Signed Computer Systems Support Specialist: Brigida Plata CPhT (Casing Flusher) Medication Adherence Outreach 04/03/23 Patient identified for potential non-adherence via notification from patient's insurance provider, [employer] Medicare Medication(s): Lisinopril 10 mg Provider: Constance Jacinto, ELSA-APRON TRIMMER NOTE: Please see my detailed notes below. I did reach out to Veena Sanchez (Administrative Support Manager) to discuss this patient. She will be getting in touch with the patient to discuss agencies local to her to assist with transportation and possible socialization/activities that might be available to her. Please reach out with any questions or concerns. Brigida Plata nut culler [facility] 02-02-2023 Note Encounter Department : [facility] Progress Notes by Ashly Rodriguez LPN at 02/02/2023 1:15 PM Author: Sana Baconice: -Author Type: Licensed Nurse Filed: 02/03/2023 1:13 PMEncounter Date: 02/02/2023Status: Signed Computer Systems Support Specialist: Ashly Rodriguez LPN (Licensed Nurse) Spoke to pt this afternoon. She is aware of results and that urine did not meet criteria for Culture. Pt has not scheduled an appointment at this time where she was supposed to have her daughter be with her. [facility] 02-02-2023 Note Encounter Department : [facility] Progress Notes by MATTHEW Carpio at 02/02/2023 1:15 PM Author: Porter Carpioe: -Author Type: Nurse Practitioner Filed: 02/03/2023 10:00 AMEncounter Date: 02/02/2023Status: Signed Computer Systems Support Specialist: MATTHEW Carpio (Nurse Practitioner) Urine was normal and did not meet criteria for culture [facility] 02-02-2023 Note Encounter Department : [facility] Progress Notes by Ashly Rodriguez LPN at 02/02/2023 12:45 PM Author: Sana Baconice: -Author Type: Licensed Nurse Filed: 02/03/2023 1:08 PMDate of Service: 02/02/2023 12:45 PMStatus: Signed Computer Systems Support Specialist: Ashly Rodriguez LPN (Licensed Nurse) Spoke to pt, made her aware of results and need to repeat in 1 year. Pt verbalized understanding at time of call. [facility] 02-02-2023 Note Encounter Department : [facility] Progress Notes by MATTHEW Carpio at 02/02/2023 12:45 PM Author: MATTHEW CarpioSermagaliee: -Author Type: Nurse Practitioner Filed: 02/03/2023 10:04 AMDate of Service: 02/02/2023 12:45 PMStatus: Signed Computer Systems Support Specialist: MATTHEW Carpio (Nurse Practitioner) Mammogram was normal Repeat in 1 year Lifetime breast cancer risk is 2.2% Risk of hereditary breast and ovarian cancer is not elevated 5-year breast cancer risk is not elevated Risk of Bay syndrome is not elevated [facility] 01-26-2023 Note Encounter Department : [facility] Progress Notes by Yoli Anders LPN at 01/26/2023 6:18 PM Author: IAN Smithervice: -Author Type: Licensed Nurse Filed: 01/26/2023 6:18 PMEncounter Date: 01/23/2023Status: Signed Computer Systems Support Specialist: Yoli Anders LPN (Licensed Nurse) Patient made aware [facility] 01-26-2023 Note Encounter Department : [facility] Progress Notes by MATTHEW Carpio at 01/26/2023 10:25 AM Author: MATTHEW CarpioService: -Author Type: Nurse Practitioner Filed: 01/26/2023 10:25 AMEncounter Date: 01/23/2023Status: Signed Computer Systems Support Specialist: MATTHEW Carpio (Nurse Practitioner) Basic metabolic panel was good other than a blood sugar of 121 Complete blood count is normal [facility] 01-11-2023 Note Encounter Department : [facility] Progress Notes by Josr Campa DPM at 01/11/2023 2:00 PM Author: ROBINA Fisherervice: -Author Type: Physician Filed: 01/20/2023 10:59 AMEncounter Date: 01/11/2023Status: Signed Computer Systems Support Specialist: Josr Campa DPM (Physician) Progress Note SUBJECTIVE Estela Perez is a 77 y.o. female who presents today for a follow up of the bilateral diabetic foot care/nail trim. Patients last nail trim was on 06/08/2022. Patient denies any new issues with either foot. Patient confirms numbness, burning and tingling. She would also like to talk more about neuropathy. female states that their pain level today is a 0/10/10. OBJECTIVE ROS Constitutional: Negative for fever, chills, fatigue and unexpected weight change. HENT: Negative for hearing loss, sore throat and facial swelling. Eyes: Negative for pain and discharge. Respiratory: Negative for cough and shortness of breath. Cardiovascular: Negative for chest pain. Gastrointestinal: Negative for nausea, vomiting, diarrhea and constipation. Musculoskeletal: noted in HPI Skin: Negative for pallor and rash. Neurological: Negative for seizures, syncope and numbness. Hematological: Does not bruise/bleed easily. Psychiatric/Behavioral: Negative for behavioral problems. The patient is not nervous/anxious. Medications: Current Outpatient Medications MedicationSigDispenseRefill -atenoloL (TENORMIN) 50 mg tabletTake 1 tablet (50 mg total) by mouth daily.90 tablet3 -clobetasoL (TEMOVATE) 0.05 % external solutionAPPLY TO SCALP ONCE DAILY AT BEDTIME FOR UP TO 2 WEEK, THEN TAKE 1 WEEK OFF REPEAT NEEDED -gabapentin (NEURONTIN) 300 mg capsuleTake 2 capsules (600 mg total) by mouth 3 times a day.90 [id number] -GENERIC AMB PRESCRIPTION RXDiabetic shoes with custom molded inserts. Indications: diabetes1 Device0 -ketoconazole (NIZORAL) 2 % shampooAPPLY TO SCALP / FACE WHEN WASHING HAIR ,LEAVE ON 5-10 MINS THEN RINSE. -levothyroxine (SYNTHROID) 25 mcg tabletTAKE 1 TABLET BY MOUTH EVERY DAY BEFORE [id number] tablet0 -lisinopriL (PRINIVIL) 10 mg tabletTake 1 tablet (10 mg total) by mouth daily.90 tablet3 -metFORMIN (GLUCOPHAGE-XR) 500 mg 24 hr tabletTAKE 1 TABLET BY MOUTH EVERY DAY (EVERY 24 HOURS)90 tablet0 -sertraline (ZOLOFT) 50 mg tabletTake 1 tablet (50 mg total) by mouth daily.90 tablet1 -simvastatin (ZOCOR) 80 mg tabletTake 1 tablet (80 mg total) by mouth at bedtime.90 tablet3 -triamterene-hydrochlorothiazide (DYAZIDE) 37.5-25 mg capsuleTake 1 capsule by mouth daily.90 capsule3 No current facility-administered medications for this visit. Allergies: No Known Allergies Vital signs in last 24 hours: There were no vitals filed for this visit. PHYSICAL EXAM: Nursing note and vitals reviewed. Constitutional: Oriented to person, place, and time. Appears well-developed and well-nourished. No distress. Lower Extremity: Diabetic Foot Exam See Citizen [place] Diabetes Association recommendation below. Right FootLeft Foot Inspection Neurological Assessment Vascular Assessment - Consider doing an CYNDI when having difficulty in palpating pulses. [place] Diabetes Association (2018) Guidelines/Recommendations: Perform annual foot examination to identify risk factors predictive of ulcers and amputations. The foot exam should include inspection, assessment of foot/leg pulses, and testing for loss of protective sensation. (10-g monofilament plus testing any one of: vibration using 128-Hz tuning fork, pinprick sensation, temperature, carly reflexes, or vibration perception threshold). - Quality Measure Documentation Requirement from QTE010; NQF 0056; MIPS 163 Dermatological- Nails 1 through 5 bilateral thickened dystrophic with subungual debris and pain on palpation. No other open lesions or rashes noted. Vascular - PT and DP pulses bilateral 2/4. Capillary refill time less than 3 seconds temperature warm to warm Neurologic-Light touch sensation diminished. Musculoskeletal-muscle strength 5 out of 5 for all muscle groups in the lower extremity. No acute deformities noted. Pain palpation along the posterior tibial tendon of the left foot. Microbiology: No results found for this or any previous visit. Imaging: No results found. ASSESSMENT ICD-10-CM 1.Controlled type 2 diabetes mellitus with diabetic polyneuropathy, unspecified whether extermination supervisor insulin use ([facility]) E11.42 2.Neuropathy G62.9 3.Onychomycosis B35.1 4.Pain in toes of both feet M79.674 M79.675 PLAN -Patient was examined and evaluated -Patient's nails were debrided in thickness and in length without incident. -Diabetic foot care was explained in great detail the patient. -Patient to return to clinic in 3 months for follow-up and diabetic foot care -Patient is currently on gabapentin 300 mg taken 3 times a day for her neuropathy. Discussed with patient keeping her A1c's within n (more content not included)... [facility] 01-05-2023 Note Encounter Department : [facility] Progress Notes by MATTHEW Carpio at 01/05/2023 12:00 PM Author: MATTHEW CarpioService: -Author Type: Nurse Practitioner Filed: 01/05/2023 12:22 PMEncounter Date: 01/05/2023Status: Signed Computer Systems Support Specialist: MATTHEW Carpio (Nurse Practitioner) Estela Perez [address] [facility] [address] : 77 y.o.: 1945hone: [phone] (home) Encounter Date: 01/05/2023 Vitals BP 112/64 Pulse 74 Resp 17 Ht 5' 4.25 (1.632 m) Wt 203 lb 8 oz (92.3 kg) SpO2 92% BMI 34.66 kg/m? Chief Complaint Chief Complaint Patient presents with -Diabetes -Hyperlipidemia -Hypertension -Depression HPI Patient is here today for a recheck on diabetes, hypertension, hyperlipidemia and depression Appointments due: Hepatitis C screening-ordered Diabetic eye exam-2 weeks ago, Dr Riya Shine vaccine-discussed - did not have chickenpox Last labs were completed in August 2022. That included A1c, ALT, AST, TSH, BMP and lipid profile Mammogram is scheduled for January 2023 Last visit was in May 2022. That was an annual exam Specialist include: Dermatology Podiatry Wt Readings from Last 3 Encounters: 01/05/23 : 203 lb 8 oz (92.3 kg) 05/26/22 : 199 lb 3.2 oz (90.4 kg) 03/09/22 : 204 lb (92.5 kg) Diet: not monitoring Exercise: none Blood sugars at home:not monitoring Blood pressures at home: not monitoring The patient is here for the following problems were assessed/reviewed at today's visit. Pertinent data reviewed with patient at visit Review of Systems: As noted in HPI Review of Systems Constitutional: Negative. HENT: Negative. Eyes: Negative. Respiratory: Negative. Cardiovascular: Negative. Gastrointestinal: Negative. Endocrine: Negative. Genitourinary: Negative. Musculoskeletal: Negative. Skin: Negative. Allergic/Immunologic: Negative. Neurological: Negative. Hematological: Negative. Psychiatric/Behavioral: Negative. Physical Exam Physical Exam Vitals and nursing note reviewed. Constitutional: General: She is not in acute distress. Appearance: Normal appearance. She is obese. She is not ill-appearing, toxic-appearing or diaphoretic. Comments: Walker for support HENT: Head: Normocephalic and atraumatic. Right Ear: Tympanic membrane, ear canal and external ear normal. Left Ear: Tympanic membrane, ear canal and external ear normal. Eyes: General: No scleral icterus. Right eye: No discharge. Left eye: No discharge. Extraocular Movements: Extraocular movements intact. Conjunctiva/sclera: Conjunctivae normal. Neck: Vascular: No carotid bruit. Cardiovascular: Rate and Rhythm: Normal rate and regular rhythm. Pulses: Normal pulses. Heart sounds: Normal heart sounds. No murmur heard. No friction rub. No gallop. Pulmonary: Effort: Pulmonary effort is normal. No respiratory distress. Breath sounds: Normal breath sounds. No stridor. No wheezing, rhonchi or rales. Abdominal: General: Bowel sounds are normal. There is no distension. Palpations: Abdomen is soft. Tenderness: There is no abdominal tenderness. There is no guarding or rebound. Musculoskeletal: Cervical back: Normal range of motion and neck supple. No rigidity or tenderness. Right lower leg: No edema. Left lower leg: No edema. Lymphadenopathy: Cervical: No cervical adenopathy. Skin: General: Skin is warm and dry. Findings: No rash. Neurological: General: No focal deficit present. Mental Status: She is alert and oriented to person, place, and time. Mental status is at baseline. Psychiatric: Mood and Affect: Mood normal. Behavior: Behavior normal. Thought Content: Thought content normal. Judgment: Judgment normal. Recent Results (from the past 12 hour(s)) POCT glycated hemoglobin, total Collection Time: 01/05/23 11:05 AM ResultValueRef Range Hemoglobin A1C6.2 (A)4.0 - 6.0 % % Current Outpatient Medications Ordered in [facility] MedicationSigDispenseRefill -atenoloL (TENORMIN) 50 mg tabletTake 1 tablet (50 mg total) by mouth daily.90 tablet3 -clobetasoL (TEMOVATE) 0.05 % external solutionAPPLY TO SCALP ONCE DAILY AT BEDTIME FOR UP TO 2 WEEK, THEN TAKE 1 WEEK OFF REPEAT NEEDED -gabapentin (NEURONTIN) 300 mg capsuleTake 2 capsules (600 mg total) by mouth 3 times a day.90 [id number] -GENERIC AMB PRESCRIPTION RXDiabetic shoes with custom molded inserts. Indications: diabetes1 Device0 -ketoconazole (NIZORAL) 2 % shampooAPPLY TO SCALP / FACE WHEN WASHING HAIR ,LEAVE ON 5-10 MINS THEN RINSE. -levothyroxine (SYNTHROID) 25 mcg tabletTAKE 1 TABLET BY MOUTH EVERY DAY BEFORE [id number] tablet0 -lisinopriL (PRINIVIL) 10 mg tabletTake 1 tablet (10 mg total) by mouth daily.90 tablet3 -metFORMIN (GLUCOPHAGE-XR) 500 mg 24 hr tabletTAKE 1 TABLET BY MOUTH EVERY DAY (EVERY 24 HOURS)90 tablet0 -sertraline (ZOLOFT) 50 mg tabletTake 1 tablet (50 (more content not included)... [facility] 03-16-2021 Note . MICRO - Microbiology PROCEDURE: Urine Culture [*1] SOURCE: Urine, Clean Catch BODY SITE: COLLECTED DATE/TIME: 03/14/2021 16:01 EDT RECEIVED DATE/TIME: 03/15/2021 15:20 EDT START DATE/TIME: 03/15/2021 15:21 EDT FREE TEXT SOURCE: FINAL REPORTS Final Report [] Verified Date/Time/Personnel: 03/16/2021 11:14 EDT <10,000 cfu/ml. No Significant growth. Sensitivity not indicated. Performing Locations *1: This test was performed at: [address], [address] [place] [address] ([place]) Summary Purpose Family History No Family History Records FoundNo Family History Records Found Advance Directives No Advanced Directives Records FoundNo Advanced Directives Records Found Additional Source Comments INFORMATION SOURCE (unrecogn ized section and content) DATE CREATED AUTHOR AUTHOR'S ORGANIZ ATION 07/13/2023 [facility] FOR RECORDS PERTAINING TO PATIENTS WHO ARE OR HAVE BEEN ENROLLED IN A CHEMICAL DEPENDENCY/SUBSTANCEABUSE PROGRAM, SOME INFORMATION MAY BE OMITTED. This clinical summary was aggregated from multiple sources. Caution should be exercised in using it in the provision of clinical care. This summary normalizes information from multiple sources, and as a consequence, information in this document may materially change the coding, format and clinical context of patient data. In addition, data may be omitted in some cases. CLINICAL DECISIONS SHOULD BE BASED ON THE PRIMARY CLINICAL RECORDS. [employer] provides no warranty or guarantee of the accuracy or completeness of information in this document.
[2023-09-13 19:15] VITALS: BP 133/78; PULSE 84; RESP 16; O2SAT 96
[2023-09-13 20:07] VITALS: BP 126/68; PULSE 90; RESP 18; TEMP 36.7; O2SAT 99
[2023-09-13 20:20] VITALS: BMI 31.4
[2023-09-13] MEDS: Atorvastatin Calcium 40 MG Tablet PO (22:07)
[2023-09-14] MEDS: MELATONIN 3 MG TABLET PO (00:20)
[2023-09-14] MEDS: BENZOCAINE/MENTHOL 1 LOZENGE 2 LOZENGE MUCOUS MEM (00:20)
[2023-09-14 02:29] LABS: Bedside Glucose 129 mg/dL (74-106)
[2023-09-14 03:00] VITALS: BP 102/64; PULSE 72; RESP 16; TEMP 36.6; O2SAT 98
[2023-09-14] MEDS: 0.9% Normal Saline (1000mL) 1,000 ML 125 ML IV ×2 (05:46→18:40)
[2023-09-14] MEDS: metroNIDAZOLE 500 MG/100 ML BAG 100 MG IV ×3 (05:46→23:16)
[2023-09-14] MEDS: 0.9% Saline Lock 10 ML Syringe IV ×2 (05:47→09:08)
[2023-09-14] MEDS: Levothyroxine 25 MCG TABLET PO (05:47)
[2023-09-14 06:40] LABS: Bedside Glucose 112 mg/dL (74-106)
--- NOTE | 2023-09-14 07:14 | CT_ITS ---
STUDY: CT ABDOMEN AND PELVIS WITH CONTRAST REASON FOR EXAM: Female, 78 years old. f/u colitis vs mass desc/sigmoid colon -- WITH CONTRAST per rectum RADIATION DOSAGE (If Supplied By Facility): CTDIvol = ( 17.33 ) mGy, DLP = ( 1116.45 ) mGycm TECHNIQUE: Transaxial images were obtained from the dome of the diaphragm to the symphysis pubis with oral contrast. Oral and amp; IV and amp; 100mL Isovue-300 RECTAL CONTRAST was administered. Sagittal and coronal images were reconstructed. Individualized dose optimization techniques were used for this CT. COMPARISON: Comparison is made with prior study dated June 14, 2023. FINDINGS: Calcified granuloma in the right lower lobe. Coronary artery calcification. Normal liver. Normal gallbladder and extrahepatic biliary system. Normal spleen. Normal pancreas. Normal bilateral adrenal glands. Stable bilateral renal cysts. Normal visualized stomach. Normal small intestine. Persistent 4.17 x 4.9 cm mass in the mesenteric side of the sigmoid colon. Increased markings are seen surrounding the peritoneal fat. A neoplastic process should be ruled out. The appendix is visualized and appears normal. Normal abdominal aorta. Normal inferior vena cava. Normal retroperitoneum. Normal urinary bladder. Small amount of free fluid is seen in the pelvis. Normal abdominal wall. There are degenerative changes of the visualized lumbar spine. CT/Abdomen/Pelvis WITH Contrast IMPRESSION: Essentially stable examination. The mass lesion in the region of the sigmoid colon most likely represents a neoplastic process. Electronically Signed: Adam Salazar MD at 12:38 EST ,
--- NOTE | 2023-09-14 07:14 | PCM.PN.SRG ---
Subjective Subjective Patient seen and examined during AM rounds. She reports that she had a difficult night overnight and became agitated when she was not able to have an attendant present right away when she needed to go to the bathroom. She also reports that she is hungry for steak and eggs and that her abdominal pain is basically gone. Objective Data Objective Data Vital Signs: Vital Signs Temp Pulse Resp BP Pulse Ox O2 Del Method 97.8 F 72 16 102/64 98 Room Air 09/14/23 03:00 09/14/23 03:00 09/14/23 03:00 09/14/23 03:00 09/14/23 03:00 09/14/23 03:00 Oxygen Delivery Method Room Air Weight: 200 lb 6.403 oz Body Mass Index (BMI) 31.4 Intake & Output: Intake and Output for Last 24 Hours 09/12/23 09/13/23 09/14/23 23:59 23:59 23:59 Intake Total 1300 / 1300 1075.00 / 1075.00 Balance 1300 / 1300 1075.00 / 1075.00 Lab / Micro Data 09/14/23 06:48 09/14/23 06:48 Labs: Laboratory Results - last 24 hr 09/13/23 13:45: WBC 10.7, RBC 4.40, Hgb 13.1, Hct 39.9, MCV 90.7, MCH 29.8, MCHC 32.8, RDW Std Deviation 40.8, RDW Coeff of Cristiane 12.2, Plt Count 191, MPV 11.3, Immature Gran % (Auto) 0.600, Neut % (Auto) 79.3 H, Lymph % (Auto) 12.4 L, Cache % (Auto) 6.9, Eos % (Auto) 0.4, Baso % (Auto) 0.4, Absolute Neuts (auto) 8.5 H, Absolute Lymphs (auto) 1.32, Nucleated RBC % 0, Sodium 139, Potassium 3.6, Chloride 107, Carbon Dioxide 24.0, Anion Gap 8, BUN 10, Creatinine 0.70, Estim Creat Clear Calc 43.63, Est GFR (MDRD) Af Amer 104, Est GFR (MDRD) Non-Af 86, BUN/Creatinine Ratio 14.3, Glucose 126 H, Lactic Acid 1.2, Calcium 9.0, Total Bilirubin 0.80, AST 16, ALT 16, Alkaline Phosphatase 95, Total Protein 7.3, Albumin 3.4, Globulin 3.9, Albumin/Globulin Ratio 0.9, Lipase 36 09/13/23 15:00: Urine Color Yellow, Urine Clarity Clear, Urine pH 6.5, Ur Specific [place] 1.010, Urine Protein 15 H, Urine Glucose (UA) Normal, Urine Ketones Negative, Urine Occult Blood Negative, Urine Nitrite Negative, Urine Bilirubin Negative, Urine Urobilinogen Normal, Ur Leukocyte Esterase 25 H, Urine RBC 0 SEEN, Urine WBC 0-5 SEEN, Ur Squamous Epith Cells 0-5 SEEN, Urine Bacteria RARE, Urine Mucus 0 SEEN 09/13/23 22:06: POC Glucose 129 H 09/14/23 05:53: POC Glucose 112 H Radiography Diagnostic Testing: Radiology Impression Abdomen/Pelvis CT 09/13/23 14:11 IMPRESSION: Inflammatory changes and possible mass lesion in the distal descending colon at the junction with the sigmoid colon as described. Bilateral renal cysts. Nonobstructive right intrarenal calculus. Questionable small gallstones versus sludge in the gallbladder lumen. Electronically Signed: Adam Salazar MD at 15:34 EST , Physical Exam GI GI Narrative: Soft, nondistended, decreased abdominal tenderness (presently very mild) Assessment & Plan Assessment/Plan (1) Colitis: PLAN: Plan This is an 78-year-old female, reasonably healthy for her age, who presents with a little over 2 weeks of crampy abdominal discomfort in the midst of a recent COVID infection and some intensification of that crampy symptom in the last 24 hours. Patient has no leukocytosis with CBC, but there is a left shift and CT imaging of the abdomen and pelvis is suggestive of colitis?although radiology states they cannot exclude a mass. Given the ambiguity of patient's initial CT scan, I recommended repeat CT with rectal contrast. This was completed earlier today and shows findings most suggestive of a colonic neoplasm. This information was communicated back to patient's nursing staff and a bowel prep was begun in anticipation of a diagnostic colonoscopy tomorrow. Patient is visited in the afternoon and reports that she is feeling overwhelmed, but overall remains grateful for her care. Recommend: ? Continue clear liquid diet ? IV fluid resuscitation with empiric IV antibiotic therapy ? Continue bowel prep with plans for colonoscopy tomorrow afternoon. Depending on the results of the patient's scope, the balance of her care may be conducted as an outpatient but further clinical plans will be communicated to patient's primary team following this procedure. ? Serial abdominal exams Charges/Coding Visit Charges Inpatient E&M: 03248 Subs Hosp L2
[2023-09-14 07:46] LABS: Absolute Lymphocyte Count 1.52 X10^3/uL (0.83-4.51); Absolute Neutrophil Count 3.4 X10^3/uL (2.0-7.7); Basophil# 0.01 X10^3/uL; Basophil% 0.2 % (0-1); Eosinophil# 0.19 X10^3/uL; Eosinophils% 3.4 % (0-5); Hematocrit 33.8 % (37-47); Hemoglobin 10.9 g/dL (12.0-15.0); Lymphocyte # 1.52 X10^3/ul (0.83-4.51); Lymphocyte % 27.1 % (19-41); Mean Corp Hgb Conc 32.2 g/dL (32-36); Mean Corpuscular Hgb 29.5 pg (27.0-32.0); Mean Corpuscular Volume 91.6 fL (81-99); Mean Platelet Vol. 11.1 fl (6.2-12.0); Monocyte# 0.51 X10^3/uL; Monocyte% 9.1 % (0-10); NRBC Flagged by Analyzer 0 % (0-5); Neutrophil # 3.35 X10^3/uL (2.7-7.7); Neutrophil % 59.8 % (47-70); Platelet Count 156 K/mm3 (150-450); RBC Distribution Width CV 12.3 % (11.6-14.6); RBC Distribution Width SD 41.1 fl (35.1-43.9); Red Blood Count 3.69 M/mm3 (4.2-5.4); White Blood Count 5.6 K/mm3 (4.4-11.0)
[2023-09-14 08:29] LABS: ALB/GLOB Ratio 0.8 RATIO (0.9-2.4); AST(SGOT) 14 U/L (15-37); Alanine Aminotransfer ALT/SGPT 13 U/L (13-56); Albumin, Serum 2.6 g/dL (3.2-5.0); Alkaline Phosphatase 71 U/L (45-117); Anion Gap 5 (5-15); BUN 6 mg/dL (7-18); BUN/Creat Ratio 9.7 RATIO (10-20); Calcium,Total 8.3 mg/dL (8.5-10.1); Chloride 114 mmol/L (98-107); Creatinine, Serum 0.62 mg/dL (0.55-1.02); EST Glomerular Filtration Rate 99 mL/min (>60); Est Glom Filt Rate - Afr Amer 120 mL/min (>60); Globulin 3.1 g/dL (2.2-4.2); Glucose 110 mg/dL (74-106); Potassium 3.7 mmol/L (3.5-5.1); Protein, Total 5.7 g/dL (6.4-8.2); Sodium Level 144 mmol/L (136-145); Thyroid Stim Hormone (TSH) 2.46 uIU/mL (0.358-3.74)
[2023-09-14 09:00] VITALS: BP 127/70; PULSE 73; RESP 16; TEMP 36.9; O2SAT 100
[2023-09-14] MEDS: Ciprofloxacin 400 MG/200 ML BAG 200 MG IV ×2 (09:06→22:02)
[2023-09-14] MEDS: Sertraline 50 MG Tablet PO (09:07)
[2023-09-14] MEDS: Aspirin E.C. 81 MG Tablet PO (09:07)
[2023-09-14] MEDS: Atenolol 50 MG Tablet PO (09:07)
[2023-09-14] MEDS: Lisinopril 10 MG Tablet PO (09:07)
[2023-09-14] MEDS: Enoxaparin 40 MG/0.4 ML Syringe SC (09:08)
[2023-09-14] MEDS: Electrolyte Solution/Peg's 4000 ML 2000 ML PO (11:29)
[2023-09-14 11:40] LABS: Bedside Glucose 135 mg/dL (74-106)
--- NOTE | 2023-09-14 13:52 | CASEMGMT ---
RN?CM?FLIGHT CREW TIME CLERK?CM?to room to meet with patient for initial transition planning/care coordination?assessment.?RN?CM?introduced self and role at [facility].? Pt voices understanding and consents to?assessment?at this time.? Pt resting in bed in no distress at this time.? Pt is A/O at this time and answers all questions appropriately.?? Care providers, pharmacy, and demographics verified/updated at this time. PCP: Dr Doe is listed as PCP, but pt states has never seen him and does not have an appt with him, but states she would like to get established with him. Call placed to [facility]. New Pt Intake form completed and faxed to [facility]. JOSE MAGAÑA spoke w/Lona @ [facility] who states Dr Doe has accepted pt. Appt scheduled for 09/20 @ 3105. Pt reports also needs transportation. [facility] Van transport set up to pick pt up @ 9 AM on 09/20 to take her to Dr Doe appt. This was all included in discharge plan and pt made aware of above. Specialists: none. Pt states she has went to a counselor in the past and is considering going again. [facility] Insurance: [facility] Prescription Benefit:?pt states she thinks she has Rx benefits, but she is not sure, stating she just switched to this insurance. Living Will/HPOA:?Pt states she has done HCPOA in the past and had her dtr, Em Rodarte, listed as her POA, but states Em does not want to be her POA now. She was made aware SW can assist w/completing new HCPOA paperwork. She declines wishing to do so at this time. LNOK: Dtr, Em Rodarte. She is her only child. Pt states only wants her voodoo friend, Lupillo Liu, listed on her contact list. She provided this information and this was added at this time. Living Arrangements: Pt states she just recently moved to the [facility]. She lives alone in a one-story apt w/no steps to enter. She is indep w/ADL's, IADL's, and manages her own medications. Transportation:?Pt states she just sold her vehicle and is going to have to rely in voodoo friends or public transportation. DME: States has the following DME:?shower chair, cane, walker. She states she has a glucometer somewhere , stating she is not sure where it is currently d/t the move. Pt states she is interested in getting a RTS. She was made aware insurance does not cover this item and made aware of several locations this can be purchased. She voices understanding. Pt states no need for further DME at this time.? HHC/SNF: Pt has been to [facility] and [facility] and she has had HHC in the past. Pt interested in HHC. She was made aware this cannot be set up until she is seen by PCP. She states she is okay without having HHC at this time and aware to talk to Dr Doe about this when she goes in the appt. She voices understanding. Pt wishes to return home and states has no further concerns with going home at time of discharge.? ?CM?to follow for any further discharge planning/needs.? Pt voices no further concerns/needs at this time.? Advised pt to ask for?CM?if any further questions/concerns/needs arise.? Voices understanding. PLAN:??Home w/discharge plans in place. Joey CALLOWAYN?RN?CM
--- NOTE | 2023-09-14 15:26 | CASEMGMT ---
Social Work SW met with pt and introduced self and role of SW. Social Determinant of Health Screening completed. Pt's only concern at this time is transportation. SW provided written information on [facility], [place] and [employer]. Pt is open and talks freely with SW regarding her relationship with her daughter. Support provided and a list of area counselors given to pt. Pt is appreciative of information and states she has worked with a counselor in the past and plans to reconnect with her again. No further SW needs at this time. SW will remain avialable should needs arise. ALEXANDER Us
[2023-09-14 17:04] LABS: Bedside Glucose 85 mg/dL (74-106)
--- NOTE | 2023-09-14 17:30 | PCM.PN.HOSP ---
Reason for Visit Reason for Visit: Diagnoses Type 2 diabetes mellitus without complications (09/13/23) Depression, unspecified (09/13/23) Essential (primary) hypertension (09/13/23) Noninfective gastroenteritis and colitis, unspecified (09/13/23) Unspecified abdominal pain (09/13/23) Subjective Subjective Patient admitted yesterday afternoon for intermittent abdominal pain over the past few weeks. CT abdomen pelvis showed concern for inflammatory changes versus a possible mass in the distal descending colon. Surgery following. I saw patient at the bedside this morning. Patient was highly anxious during my encounter and shared many concerns. She was upset about having to be in the hospital and wanted to have an answer to what was in her colon as soon as possible, amongst other concerns. She denies any significant lower abdominal pain during my encounter. Denied any other acute concerns at this time. Objective Data Objective Data Vital Signs: Vital Signs Temp Pulse Resp BP Pulse Ox O2 Del Method 98.5 F 73 16 127/70 H 100 Room Air 09/14/23 09:00 09/14/23 09:00 09/14/23 09:00 09/14/23 09:00 09/14/23 09:00 09/14/23 09:40 Oxygen Delivery Method Room Air Weight: 90.9 kg Body Mass Index (BMI) 31.4 Intake & Output: Intake and Output for Last 24 Hours 09/12/23 09/13/23 09/14/23 23:59 23:59 23:59 Intake Total 1300 / 1300 1375.00 / 1375.00 Balance 1300 / 1300 1375.00 / 1375.00 Lab / Micro Data 09/14/23 06:48 09/14/23 06:48 Labs: Laboratory Results - last 24 hr 09/13/23 22:06: POC Glucose 129 H 09/14/23 05:53: POC Glucose 112 H 09/14/23 06:48: WBC 5.6, RBC 3.69 L, Hgb 10.9 L, Hct 33.8 L, MCV 91.6, MCH 29.5, MCHC 32.2, RDW Std Deviation 41.1, RDW Coeff of Cristiane 12.3, Plt Count 156, MPV 11.1, Immature Gran % (Auto) 0.400, Neut % (Auto) 59.8, Lymph % (Auto) 27.1, [place] % (Auto) 9.1, Eos % (Auto) 3.4, Baso % (Auto) 0.2, Absolute Neuts (auto) 3.4, Absolute Lymphs (auto) 1.52, Nucleated RBC % 0, Sodium 144, Potassium 3.7, Chloride 114 H, Carbon Dioxide 25.0, Anion Gap 5, BUN 6 L, Creatinine 0.62, Estim Creat Clear Calc 42.00, Est GFR (MDRD) Af Amer 120, Est GFR (MDRD) Non-Af 99, BUN/Creatinine Ratio 9.7 L, Glucose 110 H, Calcium 8.3 L, Total Bilirubin 0.70, AST 14 L, ALT 13, Alkaline Phosphatase 71, Total Protein 5.7 L, Albumin 2.6 L, Globulin 3.1, Albumin/Globulin Ratio 0.8 L, TSH 2.46 09/14/23 11:18: POC Glucose 135 H 09/14/23 16:23: POC Glucose 85 Radiography Diagnostic Testing: Radiology Impression Abdomen/Pelvis CT 09/14/23 07:14 IMPRESSION: Essentially stable examination. The mass lesion in the region of the sigmoid colon most likely represents a neoplastic process. Electronically Signed: Adam Salazar MD at 12:38 EST , Physical Exam Const alert and oriented x3 Constitutional Narrative: Elderly female, highly anxious appearing and very talkative, otherwise sitting comfortably in bed, conversing normally, no acute distress. General Appearance: cooperative HEENT normocephalic, head/scalp atraumatic, hearing grossly normal bilaterally, nasal mucous membranes and turbinates normal and moist oral mucous membranes Eyes PERRL, EOMs intact bilaterally and conjunctivae normal Neck full ROM, no lymphadenopathy and supple Lymph Lymphatic: no lymphadenopathy noted Chest inspection of chest normal Resp normal respiratory effort, normal air movement, no use of accessory muscles and clear to auscultation bilaterally Cardio regular rate, regular rhythm, no murmurs and peripheral pulses 2+ throughout GI GI Narrative: Mild tenderness to palpation in left lower quadrant, otherwise soft to palpation, nondistended, normal bowel sounds. Back/Spine normal ROM Extremity normal to inspection, full ROM and no pedal edema Skin no rashes or lesions noted Neuro no focal motor deficits and no sensory deficits noted Speech: speech normal Psych Mood & Affect: anxious Assessment & Plan Assessment/Plan (1) Abdominal pain: PLAN: Plan Patient is an 78-year-old female who presented to [facility] ED on 09/13/2023 with worsening abdominal pain. 1. Colitis versus colonic mass CT abdomen pelvis on admit showed inflammatory changes and possible mass/lesion in distal descending colon at junction with sigmoid colon. Repeat CT imaging with rectal and IV contrast on 09/14 showed that the mass lesion in the region of the sigmoid colon most likely represents a neoplastic process. ? Surgery following. Planning for colonoscopy tomorrow, completing prep today, n.p.o. midnight. Okay to continue Cipro and Flagyl for now. 2. Anxiety and depression ? Patient appears to be highly anxious at baseline. Has been fairly demanding with staff. Continue home sertraline. Chronic medical conditions: ? Hypothyroidism: Continue home Synthroid. ? Type 2 diabetes mellitus: On home metformin. Sliding scale insulin while inpatient. ? Hypertension: Continue atenolol and lisinopril. Holding home triamterene?hydrochlorothiazide for now, resume as needed. DVT prophylaxis: Lovenox CODE STATUS: Full code, verified Expected disposition: Home, 2 to 3 days Total clinical time spent by myself addressing the patient's medical issues, reviewing all the data, and collaborating with patient's care team: 35 minutes. Charges/Coding Visit Charges Inpatient E&M: 20858 Subs Hosp L2
[2023-09-14] MEDS: Atorvastatin Calcium 40 MG Tablet PO (22:04)
[2023-09-14 22:17] VITALS: BP 101/56; PULSE 65; RESP 16; TEMP 36.6; O2SAT 99
[2023-09-14 22:33] LABS: Bedside Glucose 83 mg/dL (74-106)
[2023-09-15] VITALS (9 sets, daily range): BP systolic 113–137; BP diastolic 60–73; PULSE 49–72; RESP 16–18; TEMP 36–37.1; O2SAT 93–100; BMI 31.4
--- NOTE | 2023-09-15 | IMM_PTH ---
PATHOLOGY RESULTS PATIENT: JOSEFA AYALA LOC: MS3 U#:[id number] AGE/SX: 78/F ROOM: [facility] [place] RE09/13/[address]: Dr. Chris Lange DO : 1945 BED: 1 DIS: 09/16/2023 SPEC #: [id number] RECD: 09/20/23 14:50 STATUS: [place] REQ #: [id number] JOHN: 09/15/23 00:[address]: Matheus Galeano DEPT: IMMUNOHISTOCHEMISTRY RECD BY: Cande Leroy ENTERED: 09/20/23 14:52 SP TYPE: IMMUNO OTHR DR: DO Maximiliano Rodriguez MD Dr. Michael Bortz, MD Dr. Paige Pierce, MD Tissues: Sigmoid colon biopsy Procedures: Synapto (add) CD138 (add) CD45 (add) CD56 (add) CEA (add) CHROMO (add) CK8 (add) KI-67 (add) P53 (add) Pankeratin (initial) NSE (add) Comments: @ Ordering doctor for NSE. edited from to @ by RGOBALDEV at 09/21/23 1113 @ Ordering doctor for SYN. edited from to @ by RGOOD at 09/21/23 1113 @ Ordering doctor for CD138. edited from to @ by RGOBALDEV at 09/21/23 1113 @ Ordering doctor for CD45. edited from to @ by RGOBALDEV at 09/21/23 1113 @ Ordering doctor for CD56. edited from to @ by JOSE at 09/21/23 1113 @ Ordering doctor for CEA. edited from to DR.MBORTZ Farrell by RGOOD at 09/21/23 1113 @ Ordering doctor for CHROMO. edited from to DR.MBORTZ Farrell by RGOOD at 09/21/23 1113 @ Ordering doctor for CK8. edited from to DR.MBORTZ Farrell by JOSE at 09/21/23 1113 @ Ordering doctor for KI67. edited from to DR.MBORTZ Farrell by JOSE at 09/21/23 1113 @ Ordering doctor for P53. edited from to DR.MBORTZ Farrell by JOSE at 09/21/23 1113 @ Ordering doctor for PANK edited from to DR.MBORTZ Farrell by RGOBALDEV at 09/21/23 1113 @ Submitting doctor edited from to DR.MBORTZ Farrell by RGOOD at 09/21/23 1113 PHYSICIAN & [place] [id number] SPECIMEN INFORMATION: Tissue Source: Sigmoid colon mass Clinical Info: Colitis Specimen Number: [id number] CPT code: 85244, 85621 x10 METHODOLOGY: Deparaffinized sections of prefer/formalin-fixed tissue or PAP/DQ stained slides are incubated with monoclonal/polyclonal antibodies/oligonucleotide probes. Localization is made via biotin free immunoperoxidase method. Appropriate controls are performed and reacted as expected. Results on target cell population are indicated in the following table: RESULTS: ANTIBODY / CLONE RESULT AE1-3 (AE1/AE3/PCK26) negative CK8 (82tsawJ73) negative CD45 (RP2/18) positive CD138 (B-A38) positive CD56 (123C3.D5) negative Chromo (LK2H10) negative Synapto (polyclonal) negative NSE Neuron Specific Enolase negative CEA (11-7/TF-3HB-1) negative P53 (DO-7) negative (null pattern) Ki-67 (30-9) positive (low) These tests were developed and their performance characteristics determined by [facility]. They may not have been cleared or approved by the U.S. Food and Drug Administration. The FDA has determined that such clearance or approval is not necessary. The above immunohistochemical/dualISH markers are ordered and reviewed by the Pathologist. INTERPRETATION: Sigmoid colon mass, biopsy: No evidence of malignancy. Focal reactive changes present. AM:esha 09/22/2023
[2023-09-15] MEDS: 0.9% Normal Saline (1000mL) 1,000 ML 125 ML IV ×2 (03:50→17:13)
[2023-09-15] MEDS: Levothyroxine 25 MCG TABLET PO (06:45)
[2023-09-15] MEDS: metroNIDAZOLE 500 MG/100 ML BAG 100 MG IV ×3 (06:45→22:08)
[2023-09-15 07:27] LABS: Hemoglobin A1c 5.8 % (3.8-5.6)
--- NOTE | 2023-09-15 08:24 | PN.SURG_ITS ---
Subjective Subjective Patient seen and examined during AM rounds. She denies significant abdominal pain. She confirms she completed all but 2 cups of her prep. Overall she tolerated this well, however, it did cause a hemorrhoid flare which resulted in some substantial bleeding. She shares that she simply was trying to evacuate her bowels fully and this resulted in the hemorrhoidal irritation. Objective Data Objective Data Vital Signs: Vital Signs Temp Pulse Resp BP Pulse Ox O2 Del Method 98 F 72 18 113/66 93 Room Air 09/15/23 03:57 09/15/23 03:57 09/15/23 03:57 09/15/23 03:57 09/15/23 03:57 09/15/23 03:57 Oxygen Delivery Method Room Air Weight: 200 lb 6.403 oz Body Mass Index (BMI) 31.4 Intake & Output: Intake and Output for Last 24 Hours 09/13/23 09/14/23 09/15/23 23:59 23:59 23:59 Intake Total 1300 / 1300 3014.58 / 3014.58 908.33 / 908.33 Balance 1300 / 1300 3014.58 / 3014.58 908.33 / 908.33 Lab / Micro Data 09/15/23 08:45 09/15/23 08:45 Labs: Laboratory Results - last 24 hr 09/14/23 06:48: Sodium 144, Potassium 3.7, Chloride 114 H, Carbon Dioxide 25.0, Anion Gap 5, BUN 6 L, Creatinine 0.62, Estim Creat Clear Calc 42.00, Est GFR (MDRD) Af Amer 120, Est GFR (MDRD) Non-Af 99, BUN/Creatinine Ratio 9.7 L, Glucose 110 H, Hemoglobin A1c 5.8 H, Calcium 8.3 L, Total Bilirubin 0.70, AST 14 L, ALT 13, Alkaline Phosphatase 71, Total Protein 5.7 L, Albumin 2.6 L, Globulin 3.1, Albumin/Globulin Ratio 0.8 L, TSH 2.46 09/14/23 11:18: POC Glucose 135 H 09/14/23 16:23: POC Glucose 85 09/14/23 21:58: POC Glucose 83 Radiography Diagnostic Testing: Radiology Impression Abdomen/Pelvis CT 09/14/23 07:14 IMPRESSION: Essentially stable examination. The mass lesion in the region of the sigmoid colon most likely represents a neoplastic process. Electronically Signed: Adam Salazar MD at 12:38 EST , Physical Exam Const oriented x3 and no apparent distress Resp normal respiratory effort GI GI Narrative: Nondistended, soft, minimally tender to palpation of the left lower quadrant?otherwise benign exam Assessment & Plan Assessment/Plan (1) Colitis: PLAN: Plan This is an 78-year-old female, reasonably healthy for her age, who presents with a little over 2 weeks of crampy abdominal discomfort in the midst of a recent COVID infection and some intensification of that crampy symptom in the last 24 hours. Patient has no leukocytosis with CBC, but there is a left shift and CT imaging of the abdomen and pelvis is suggestive of colitis?although radiology states they cannot exclude a mass. Given the ambiguity of patient's initial CT scan, I recommended repeat CT with rectal contrast. This was completed yester day and shows findings most suggestive of a colonic neoplasm. This information was communicated back to patient's nursing staff and a bowel prep was begun yesterday in anticipation of a diagnostic colonoscopy today. Recommend: ? Continue clear liquid diet ? IV fluid resuscitation with empiric IV antibiotic therapy ? Diagnostic colonoscopy later today. ? Serial abdominal exams Charges/Coding Visit Charges Inpatient E&M: 98340 Subs Hosp L2
[2023-09-15] MEDS: 0.9% Saline Lock 10 ML Syringe IV ×2 (09:05→17:09)
[2023-09-15] MEDS: Ondansetron 4 MG/2 ML Vial IV (09:06)
[2023-09-15] MEDS: Atenolol 50 MG Tablet PO (09:06)
[2023-09-15] MEDS: Sertraline 50 MG Tablet PO (09:06)
[2023-09-15] MEDS: Aspirin E.C. 81 MG Tablet PO (09:06)
[2023-09-15] MEDS: Lisinopril 10 MG Tablet PO (09:07)
[2023-09-15 09:16] LABS: Hematocrit 32.7 % (37-47); Hemoglobin 10.8 g/dL (12.0-15.0); Mean Corpuscular Hgb 29.8 pg (27.0-32.0); Mean Corpuscular Volume 90.3 fL (81-99); Platelet Count 167 K/mm3 (150-450); RBC Distribution Width CV 12.3 % (11.6-14.6); RBC Distribution Width SD 40.1 fl (35.1-43.9); Red Blood Count 3.62 M/mm3 (4.2-5.4); White Blood Count 4.8 K/mm3 (4.4-11.0)
[2023-09-15] MEDS: Ciprofloxacin 400 MG/200 ML BAG 200 MG IV (09:16)
[2023-09-15 09:38] LABS: Anion Gap 4 (5-15); BUN 4 mg/dL (7-18); BUN/Creat Ratio 6.8 RATIO (10-20); Calcium,Total 8.8 mg/dL (8.5-10.1); Chloride 111 mmol/L (98-107); Creatinine, Serum 0.59 mg/dL (0.55-1.02); EST Glomerular Filtration Rate 104 mL/min (>60); Est Glom Filt Rate - Afr Amer 126 mL/min (>60); Glucose 107 mg/dL (74-106); Potassium 3.6 mmol/L (3.5-5.1); Sodium Level 140 mmol/L (136-145)
--- NOTE | 2023-09-15 11:17 | EKG12_ITS ---
Test Reason : PRE-OP Blood Pressure : / mmHG Vent. Rate : 059 BPM Atrial Rate : 059 BPM P-R Int : 216 ms QRS Dur : 100 ms QT Int : 456 ms P-R-T Axes : 024 -31 052 degrees QTc Int : 451 ms Sinus bradycardia with 1st degree A-V block Left axis deviation Septal infarct , age undetermined Abnormal ECG No previous ECGs available Confirmed by RACQUEL DAVE, ALICIA ([id number]), sports editor MARY BETH LANCE ([id number]) on 09/19/2023 11:22:30 AM Referred By: Confirmed By:ALICIA CLEMENT MD
[2023-09-15 11:29] LABS: Bedside Glucose 107 mg/dL (74-106)
[2023-09-15 11:59] LABS: Bedside Glucose 98 mg/dL (74-106)
--- NOTE | 2023-09-15 13:45 | PCM.PN.HOSP ---
Reason for Visit Reason for Visit: Diagnoses Type 2 diabetes mellitus without complications (09/13/23) Depression, unspecified (09/13/23) Essential (primary) hypertension (09/13/23) Noninfective gastroenteritis and colitis, unspecified (09/13/23) Unspecified abdominal pain (09/13/23) Subjective Subjective Patient seen at bedside this morning. Patient was talking to a friend on the phone when I entered the room, was disappointed to having up with her friend and gave me short answers to questions. She denied any significant abdominal pain this morning. No other acute concerns. Objective Data Objective Data Vital Signs: Vital Signs Temp Pulse Resp BP Pulse Ox O2 Del Method 98.7 F 69 16 129/65 H 99 Room Air 09/15/23 09:19 09/15/23 09:19 09/15/23 09:19 09/15/23 09:19 09/15/23 09:19 09/15/23 09:28 Oxygen Delivery Method Room Air Weight: 90.9 kg Body Mass Index (BMI) 31.4 Intake & Output: Intake and Output for Last 24 Hours 09/13/23 09/14/23 09/15/23 23:59 23:59 23:59 Intake Total 1300 / 1300 3014.58 / 3014.58 1208.33 / 1208.33 Balance 1300 / 1300 3014.58 / 3014.58 1208.33 / 1208.33 Lab / Micro Data 09/15/23 08:45 09/15/23 08:45 Labs: Laboratory Results - last 24 hr 09/14/23 06:48: Hemoglobin A1c 5.8 H 09/14/23 16:23: POC Glucose 85 09/14/23 21:58: POC Glucose 83 09/15/23 06:47: POC Glucose 107 H 09/15/23 08:45: WBC 4.8, RBC 3.62 L, Hgb 10.8 L, Hct 32.7 L, MCV 90.3, MCH 29.8, MCHC 33.0, RDW Std Deviation 40.1, RDW Coeff of Cristiane 12.3, Plt Count 167, MPV 11.0, Sodium 140, Potassium 3.6, Chloride 111 H, Carbon Dioxide 25.0, Anion Gap 4 L, BUN 4 L, Creatinine 0.59, Estim Creat Clear Calc 42.00, Est GFR (MDRD) Af Amer 126, Est GFR (MDRD) Non-Af 104, BUN/Creatinine Ratio 6.8 L, Glucose 107 H, Calcium 8.8 09/15/23 11:28: POC Glucose 98 Physical Exam Const alert and oriented x3 Constitutional Narrative: Elderly female, anxious appearing, otherwise sitting comfortably in bed, conversing normally, no acute distress. General Appearance: cooperative HEENT normocephalic, head/scalp atraumatic, hearing grossly normal bilaterally, nasal mucous membranes and turbinates normal and moist oral mucous membranes Eyes PERRL, EOMs intact bilaterally and conjunctivae normal Neck full ROM, no lymphadenopathy and supple Lymph Lymphatic: no lymphadenopathy noted Chest inspection of chest normal Resp normal respiratory effort, normal air movement, no use of accessory muscles and clear to auscultation bilaterally Cardio regular rate, regular rhythm, no murmurs and peripheral pulses 2+ throughout GI GI Narrative: Mild tenderness to palpation in left lower quadrant, otherwise soft to palpation, nondistended, normal bowel sounds. Back/Spine normal ROM Extremity normal to inspection, full ROM and no pedal edema Skin no rashes or lesions noted Neuro no focal motor deficits and no sensory deficits noted Speech: speech normal Psych Mood & Affect: anxious Assessment & Plan Assessment/Plan (1) Abdominal pain: PLAN: Plan Patient is an 78-year-old female who presented to [facility] ED on 09/13/2023 with worsening abdominal pain. 1. Suspected colonic mass CT abdomen pelvis on admit showed inflammatory changes and possible mass/lesion in distal descending colon at junction with sigmoid colon. Repeat CT imaging with rectal and IV contrast on 09/14 showed that the mass lesion in the region of the sigmoid colon most likely represents a neoplastic process. ? Surgery following. Planning for colonoscopy this afternoon, will follow-up on results. Continue Cipro and Flagyl for now. 2. Anxiety and depression ? Patient appears to be highly anxious at baseline. Has been fairly demanding with staff. Continue home sertraline. Chronic medical conditions: ? Hypothyroidism: Continue home Synthroid. ? Type 2 diabetes mellitus: On home metformin. Sliding scale insulin while inpatient. ? Hypertension: Continue atenolol and lisinopril. Holding home triamterene?hydrochlorothiazide for now, resume as needed. DVT prophylaxis: Lovenox CODE STATUS: Full code, verified Expected disposition: TBD Total clinical time spent by myself addressing the patient's medical issues, reviewing all the data, and collaborating with patient's care team: 35 minutes. Charges/Coding Visit Charges Inpatient E&M: 43954 Subs Hosp L2
--- NOTE | 2023-09-15 14:39 | COLBX_PTH ---
PATHOLOGY RESULTS PATIENT: JOSEFA AYALA LOC: MS3 U#:[id number] AGE/SX: 78/F ROOM: [facility] [place] [facility] [place] RE09/13/[address]: Dr. Chris Lange DO : 1945 BED: 1 DIS: 09/16/2023 SPEC #: [id number] RECD: 09/15/23 18:40 STATUS: WILLIAN PETRA #: [id number] JOHN: 09/15/23 14:[address]: Matheus Galeano DEPT: SURGICAL PATHOLOGY RECD BY: Elvie Corrigan ENTERED: 09/19/23 11:38 SP TYPE: COLON BX OTHR DR: DO Maximiliano Rodriguez MD Dr. Michael Bortz, MD Dr. Paige Pierce, MD Tissues: COLON BIOPSY Procedures: Surgery Specimen Level IV Comments: @ Ordering doctor for SUIV edited from to @ by JOSE at 09/21/23 1113 @ Submitting doctor edited from to @ by RGOOD at 09/21/23 1113 HEADER OPERATION: Colonoscopy with biopsies, ink tattooing PRE-OP DIAGNOSIS: Colitis TISSUE SUBMITTED: Sigmoid colon mass biopsy MICROSCOPIC DIAGNOSIS Sigmoid colon mass, biopsy: Focal reactive and reparative change. No evidence of malignancy. See comment. AM:esha 09/20/2023 COMMENT Immunohistochemistry ([id number]) supports the above diagnosis. MICROSCOPIC DESCRIPTION Slides are reviewed. GROSS DESCRIPTION Received in fixative is one container labeled with the patient's name and designated sigmoid colon mass biopsy. The specimen consists of multiple irregular fragments of light cardona soft tissue that in aggregate measure 1.0 x 0.5 x 0.1 cm. The specimen is totally submitted in one cassette. / SJ:esha 09/18/2023 TC:5 CPT: 94177
--- NOTE | 2023-09-15 16:09 | OP.CCLET_ITS ---
09/15/2023 Maximiliano Doe Md Re : Colonoscopy procedure for Estela Perez [place] This procedure was performed on Friday, September 15, 2023. My impressions and recommendations are as follows: Impressions : - Preparation of the colon was fair. - Hemorrhoids found on perianal exam. - Perianal skin tags found on perianal exam. - Diverticulosis in the sigmoid colon and in the transverse colon. No specimens collected. - Rule out malignancy, tumor in the proximal sigmoid colon. Biopsied. Tattooed. - Internal hemorrhoids. No specimens collected. Recommendations : - Return patient to [facility] care. - Clear liquid diet today. - Continue present medications. - Await pathology results. - Telephone my office for pathology results in 1 week. - No recommendation at this time regarding repeat colonoscopy. My findings are described in the full procedure note, which is enclosed. If I can be of further assistance, please feel free to contact me at Doctor phone number(s): , Work: . Sincerely, Matheus Galeano MD 09/15/2023 4:09:16 PM This report has been signed electronically.
--- NOTE | 2023-09-15 16:09 | OP.COLON_ITS ---
Patient Name: Estela Perez Procedure Date: 09/15/2023 2:26 PM Date of : 1945 Age: 78 Procedure: Colonoscopy Indications: Lower abdominal pain, Abnormal CT of the GI tract Providers: Matheus Galeano MD Medicines: See the Anesthesia note for documentation of the administered medications Patient Profile: Last Colonoscopy: more than 10 years ago. Complications: No immediate complications. Estimated blood loss: Minimal. Procedure: Pre-Anesthesia Assessment: - The heart rate, respiratory rate, oxygen saturations, blood pressure, adequacy of pulmonary ventilation, and response to care were monitored throughout the procedure. After I obtained informed consent, the scope was passed under direct vision. Throughout the procedure, the patient's blood pressure, pulse, and oxygen saturations were monitored continuously. The Colonoscope was introduced through the anus and advanced to the cecum, identified by the appendiceal orifice, ileocecal valve and palpation. The colonoscopy was somewhat difficult due to poor bowel prep and a redundant colon. Successful completion of the procedure was aided by withdrawing and reinserting the scope, straightening and shortening the scope to obtain bowel loop reduction and lavage. The patient tolerated the procedure well. The quality of the bowel preparation was fair. Scope In: 2:48:59 PM Scope Withdrawal Time 0 hours 50 minutes 19 seconds Scope Out: 3:55:47 PM Total Procedure Duration Time 1 hour 6 minutes 48 seconds Findings: Hemorrhoids were found on perianal exam. Skin tags were found on perianal exam. Many small and large-mouthed diverticula were found in the sigmoid colon and transverse colon. No biopsies or other specimens were collected for this exam. An infiltrative non-obstructing medium-sized mass was found in the proximal sigmoid colon. The mass was partially circumferential (involving one-half of the lumen circumference). The mass measured three cm in length. In addition, its diameter measured four mm. No bleeding was present. Biopsies were taken with a cold forceps for histology. Estimated blood loss was minimal. Area was tattooed with an injection of 4 mL of Kelsey ink. Internal hemorrhoids were found during retroflexion. The hemorrhoids were moderate and Grade II (internal hemorrhoids that prolapse but reduce spontaneously). No biopsies or other specimens were collected for this exam. Impression: - Preparation of the colon was fair. - Hemorrhoids found on perianal exam. - Perianal skin tags found on perianal exam. - Diverticulosis in the sigmoid colon and in the transverse colon. No specimens collected. - Rule out malignancy, tumor in the proximal sigmoid colon. Biopsied. Tattooed. - Internal hemorrhoids. No specimens collected. Recommendation: - Return patient to [facility] for [facility] care. - Clear liquid diet today. - Continue present medications. - Await pathology results. - Telephone my office for pathology results in 1 week. - No recommendation at this time regarding repeat colonoscopy. Procedure Code(s): --- Professional --- 35873, Colonoscopy, flexible; with biopsy, single or multiple 53062, Colonoscopy, flexible; with directed submucosal injection(s), any substance Diagnosis Code(s): --- Professional --- K64.1, Second degree hemorrhoids D49.0, Neoplasm of unspecified behavior of digestive system K64.4, Residual hemorrhoidal skin tags K57.30, Diverticulosis of large intestine without perforation or abscess without bleeding R10.30, Lower abdominal pain, unspecified R93.3, Abnormal findings on diagnostic imaging of other parts of digestive tract CPT copyright 2021 [employer]. All rights reserved. The codes documented in this report are preliminary and upon software sales representative review may be revised to meet current compliance requirements. Matheus Galeano MD 09/15/2023 4:09:16 PM This report has been signed electronically. Number of Addenda: 0 Note Initiated On: 09/15/2023 2:26 PM
[2023-09-15 17:17] LABS: Bedside Glucose 140 mg/dL (74-106)
[2023-09-15] MEDS: Atorvastatin Calcium 40 MG Tablet PO (22:13)
[2023-09-15 22:34] LABS: Bedside Glucose 105 mg/dL (74-106)
[2023-09-16] MEDS: Ciprofloxacin 400 MG/200 ML BAG 200 MG IV ×2 (00:34→09:21)
[2023-09-16] MEDS: 0.9% Normal Saline (1000mL) 1,000 ML 125 ML IV (00:34)
[2023-09-16 02:50] VITALS: BP 132/68; PULSE 60; RESP 16; TEMP 36.9; O2SAT 98
[2023-09-16] MEDS: Levothyroxine 25 MCG TABLET PO (05:31)
[2023-09-16] MEDS: metroNIDAZOLE 500 MG/100 ML BAG 100 MG IV (05:33)
[2023-09-16 06:00] LABS: Bedside Glucose 97 mg/dL (74-106)
[2023-09-16 06:24] LABS: Hematocrit 33.1 % (37-47); Hemoglobin 10.6 g/dL (12.0-15.0); Mean Corpuscular Hgb 29.7 pg (27.0-32.0); Mean Corpuscular Volume 92.7 fL (81-99); Mean Platelet Vol. 10.8 fl (6.2-12.0); Platelet Count 174 K/mm3 (150-450); RBC Distribution Width CV 12.4 % (11.6-14.6); RBC Distribution Width SD 42.5 fl (35.1-43.9); Red Blood Count 3.57 M/mm3 (4.2-5.4); White Blood Count 5.6 K/mm3 (4.4-11.0)
[2023-09-16 06:54] LABS: Anion Gap 4 (5-15); BUN 8 mg/dL (7-18); BUN/Creat Ratio 12.2 RATIO (10-20); Calcium,Total 8.7 mg/dL (8.5-10.1); Chloride 115 mmol/L (98-107); Creatinine, Serum 0.66 mg/dL (0.55-1.02); EST Glomerular Filtration Rate 92 mL/min (>60); Est Glom Filt Rate - Afr Amer 111 mL/min (>60); Glucose 97 mg/dL (74-106); Potassium 3.7 mmol/L (3.5-5.1); Sodium Level 143 mmol/L (136-145)
--- NOTE | 2023-09-16 07:58 | PCM.PN.SRG ---
Subjective Subjective Patient had colonoscopy yesterday. She is very upset this morning and is very agitated over her care overnight and seems stressed. Objective Data Objective Data Vital Signs: Vital Signs Temp Pulse Resp BP Pulse Ox O2 Del Method 98.4 F 60 16 132/68 H 98 Room Air 09/16/23 02:50 09/16/23 02:50 09/16/23 02:50 09/16/23 02:50 09/16/23 02:50 09/16/23 02:50 Oxygen Delivery Method Room Air Weight: 200 lb 6.403 oz Body Mass Index (BMI) 31.4 Intake & Output: Intake and Output for Last 24 Hours 09/14/23 09/15/23 09/16/23 23:59 23:59 23:59 Intake Total 3014.58 / 3014.58 2037.50 / 2037.50 1116.67 / 1116.67 Balance 3014.58 / 3014.58 2037.50 / 2037.50 1116.67 / 1116.67 Lab / Micro Data 09/16/23 05:34 09/16/23 05:34 Labs: Laboratory Results - last 24 hr 09/15/23 06:47: POC Glucose 107 H 09/15/23 08:45: WBC 4.8, RBC 3.62 L, Hgb 10.8 L, Hct 32.7 L, MCV 90.3, MCH 29.8, MCHC 33.0, RDW Std Deviation 40.1, RDW Coeff of Cristiane 12.3, Plt Count 167, MPV 11.0, Sodium 140, Potassium 3.6, Chloride 111 H, Carbon Dioxide 25.0, Anion Gap 4 L, BUN 4 L, Creatinine 0.59, Estim Creat Clear Calc 42.00, Est GFR (MDRD) Af Amer 126, Est GFR (MDRD) Non-Af 104, BUN/Creatinine Ratio 6.8 L, Glucose 107 H, Calcium 8.8 09/15/23 11:28: POC Glucose 98 09/15/23 16:56: POC Glucose 140 H 09/15/23 22:11: POC Glucose 105 09/16/23 05:26: POC Glucose 97 09/16/23 05:34: WBC 5.6, RBC 3.57 L, Hgb 10.6 L, Hct 33.1 L, MCV 92.7, MCH 29.7, MCHC 32.0, RDW Std Deviation 42.5, RDW Coeff of Cristiane 12.4, Plt Count 174, MPV 10.8, Sodium 143, Potassium 3.7, Chloride 115 H, Carbon Dioxide 24.0, Anion Gap 4 L, BUN 8, Creatinine 0.66, Estim Creat Clear Calc 42.00, Est GFR (MDRD) Af Amer 111, Est GFR (MDRD) Non-Af 92, BUN/Creatinine Ratio 12.2, Glucose 97, Calcium 8.7 Physical Exam Const oriented x3 and no apparent distress Resp normal respiratory effort Cardio regular rate and regular rhythm GI soft to palpation and non-tender Assessment & Plan Assessment/Plan (1) Abdominal pain: QUALIFIERS: Abdominal location: generalized Qualified Code(s): R10.84 - Generalized abdominal pain (2) Colonic mass: PLAN: Plan I spent a lot of time discussing her issues with her. It seems that she is depressed and may benefit from therapy. She seems lonely and says that she is having a lot of social issues at this time. As far as her colon goes she had a colonoscopy yesterday with biopsies and the biopsies will be back till next week. She can be discharged home and follow-up with Dr. Galeano next week for discussion. Yassine Burr MD Pager: [facility] [address] [place] [address], [address] [place] [phone] Office:
--- NOTE | 2023-09-16 08:00 | CT_ITS ---
EXAM: CT CHEST WITH INTRAVENOUS CONTRAST CLINICAL INDICATION: colon ca staging TECHNIQUE: Helically acquired images were obtained of the chest with intravenous contrast. CTDIvol = ( 19.48 ) mGy, DLP = ( 656.07 ) mGycm This CT exam was performed using one or more of the following dose reduction techniques: automated exposure control, adjustment of the mA and/or kV according to patient size, and/or use of iterative reconstruction technique. CONTRAST: IV 100mL Isovue-370 COMPARISON: No relevant prior studies available. FINDINGS: LUNGS AND PLEURAL SPACES: Bilateral pleural effusions. No mass. No pneumothorax. HEART: Unremarkable. Heart size is normal. No pericardial effusion. MEDIASTINUM: No aortic aneurysm or dissection. THYROID: Unremarkable. No thyroid lesions. BONES/JOINTS: Degenerative changes of the spine. No suspicious lytic or blastic abnormality. VASCULATURE: No aortic aneurysm or dissection. Multivessel calcific coronary atherosclerosis. No obvious central pulmonary embolism although this study was not performed with the pulmonary embolism protocol. No PE. LYMPH NODES: Calcified lymph nodes involving the mediastinum are compatible with old granulomatous disease. No concerning mediastinal adenopathy. CT/Chest WITH Contrast IMPRESSION: 1. No PE or pneumonia. 2. Small pleural effusions bilaterally. 3. Ancillary findings as above. Electronically Signed: Ron Feliciano MD at 13:06 EST ,
[2023-09-16] MEDS: Sertraline 50 MG Tablet PO (09:23)
[2023-09-16] MEDS: Lisinopril 10 MG Tablet PO (09:24)
[2023-09-16] MEDS: Aspirin E.C. 81 MG Tablet PO (09:26)
[2023-09-16] MEDS: Atenolol 50 MG Tablet PO (09:26)
[2023-09-16] MEDS: Enoxaparin 40 MG/0.4 ML Syringe SC (09:26)
[2023-09-16 10:02] VITALS: BP 123/53; PULSE 69; RESP 16; TEMP 37.1; O2SAT 98
--- NOTE | 2023-09-16 10:56 | DCINST_ITS ---
Discharge Instructions Diet Discharge Diet: No restrictions Activity Discharge Activity: No Restrictions Weight Bearing Status: Full weight bearing Follow Up Care Please Follow Up With: Maximiliano Doe MD When: As needed Test Results: Test results from this visit will be discussed in further detail at your follow- up appointment, if applicable. Pending Tests Upon Discharge: None Discharge Plan Admission Admit Date/Time: 09/13/23 16:30 Primary Reason for Your Visit: Colonic mass Attending Provider: Chris Lange Primary Care Provider: Maximiliano Doe Consulting Providers: Matheus Galeano; Mary Anne Pyle Instructions Additional Instructions / Restrictions: The surgery office will call to follow-up on your biopsy results in the next week. Continue all home medications as normal. Follow-up with your primary care doctor in the office as needed. Discharge Orders/Prescriptions Prescriptions: Continued atenolol 50 mg tablet 50 mg PO Q24H levothyroxine 25 mcg tablet 25 mcg PO DAILY metformin 500 mg tablet extended release 24 hr 500 mg PO DAILY sertraline 50 mg tablet 50 mg PO DAILY lisinopril 10 mg tablet 10 mg PO DAILY simvastatin 80 mg tablet 80 mg PO QHS triamterene-hydrochlorothiazid 37.5-25 mg capsule 1 cap PO DAILY multivitamin Tablet 1 tab PO DAILY Caltrate 600 plus D 600 mg-20 mcg (800 unit) tablet,chewable 1 tab PO DAILY aspirin [Adult Low Dose Aspirin] 81 mg tablet,delayed release (DR/EC) 81 mg PO DAILY Referrals / Follow Up: Maximiliano Doe MD [Primary Care Provider] - 09/20/23 9:50 am ([facility] Van will pick you up at 9 AM to take you to the appt with Dr Doe. Please call [facility] to cancel van transportation if your appt with Dr Doe gets changed. ) Disposition Disposition (needs filled in before D/C Order can be placed): Home, Self Care
--- NOTE | 2023-09-16 10:59 | DS.PCM_ITS ---
Providers Date of Admission: 09/13/23 Date of Discharge: 09/16/23 Primary Care Physician: Maximiliano Doe MD Consultations 09/13/23 20:16 Consult: General Surgery Routine Consulting Provider: Matheus Galeano Reason for Consult: colitis vs colonic mass EMERGENT Consult: No MD Notified: Yes Date Notified: 09/13/23 Time Notified: 16:33 Method of Notification: ED Physician Initiated Reason For Visit: ABDOMINAL PAIN Diagnosis Discharge Diagnosis (1) Abdominal pain: Status: Acute Code(s): R10.9 - Unspecified abdominal pain Qualifiers: Abdominal location: generalized Qualified Code(s): R10.84 - Generalized abdominal pain (2) Colonic mass: Status: Acute Code(s): K63.89 - Other specified diseases of intestine Medications at Discharge Home Medications aspirin 81 mg tablet,delayed release (Adult Low Dose Aspirin) 81 mg PO DAILY [facility] 09/13/23 atenolol 50 mg tablet 50 mg PO Q24H BLOOD PRESSURE 09/13/23 calcium carbonate 600 mg-vitamin D3 20 mcg (800 unit) chewable tablet (Caltrate 600 plus D) 1 tab PO DAILY SUPPLEMENT 09/13/23 levothyroxine 25 mcg tablet 25 mcg PO DAILY THYROID 09/13/23 lisinopril 10 mg tablet 10 mg PO DAILY BLOOD PRESSURE 09/13/23 metformin 500 mg tablet,extended release 24 hr 500 mg PO DAILY DIABETES 09/13/23 multivitamin 1 tab PO DAILY [facility] 09/13/23 sertraline 50 mg tablet 50 mg PO DAILY DEPRESSION 09/13/23 simvastatin 80 mg tablet 80 mg PO QHS CHOLESTEROL 09/13/23 triamterene 37.5 mg-hydrochlorothiazide 25 mg capsule 1 cap PO DAILY BLOOD PRESSURE 09/13/23 Hospital Course Operations None Procedures Colonoscopy and - (CT abdomen pelvis x 2, CT chest) Summary of Care Provided Minutes Spent on Discharge: 35 Hospital Course: Patient is an 78-year-old female who presented to [facility] ED on 09/13/2023 with worsening abdominal pain. Hospital course as noted below. Patient discharged home in stable condition on 09/16. 1. Suspected colonic mass CT abdomen pelvis on admit showed inflammatory changes and possible mass/lesion in distal descending colon at junction with sigmoid colon. Repeat CT imaging wi th rectal and IV contrast on 09/14 showed that the mass lesion in the region of the sigmoid colon most likely represents a neoplastic process. S/p colonoscopy on 09/15, showed an infiltrative nonobstructing medium-sized mass in the proximal sigmoid colon that was biopsied, otherwise noted internal hemorrhoids and diverticulosis of sigmoid colon. ? Surgery followed. Patient tolerated the colonoscopy without issues. Stable for discharge home and surgery will follow-up on biopsy results with patient in about 1 week. 2. Anxiety and depression ? Patient appeared to be highly anxious at baseline. Was fairly demanding with staff. Continued home sertraline. Case management followed. Noted that patient would be a good candidate for outpatient behavioral therapy. Chronic medical conditions: ? Hypothyroidism: Continue home Synthroid. ? Type 2 diabetes mellitus: Sliding scale insulin while inpatient. Continued home metformin on discharge. ? Hypertension: Continue atenolol and lisinopril. Held home triamterene?hydrochlorothiazide during admission, okay to resume on discharge. Total clinical time spent by myself addressing the patient's discharge needs: 35 minutes. Physical Exam Const alert and oriented x3 Constitutional Narrative: Elderly female, anxious appearing, otherwise sitting comfortably in bed, conversing normally, no acute distress. General Appearance: cooperative HEENT normocephalic, head/scalp atraumatic, hearing grossly normal bilaterally, nasal mucous membranes and turbinates normal and moist oral mucous membranes Eyes PERRL, EOMs intact bilaterally and conjunctivae normal Neck full ROM, no lymphadenopathy and supple Lymph Lymphatic: no lymphadenopathy noted Chest inspection of chest normal Resp normal respiratory effort, normal air movement, no use of accessory muscles and clear to auscultation bilaterally Cardio regular rate, regular rhythm, no murmurs and peripheral pulses 2+ throughout GI GI Narrative: Mild tenderness to palpation in left lower quadrant, otherwise soft to palpation, nondistended, normal bowel sounds. Back/Spine normal ROM Extremity normal to inspection, full ROM and no pedal edema Skin no rashes or lesions noted Neuro no focal motor deficits and no sensory deficits noted Speech: speech normal Psych Mood & Affect: anxious Weight / BMI Weight Weight: 90.9 kg Body Mass Index (BMI) 31.4 ABG / Lab / Microbiology Data 09/16/23 05:34 09/16/23 05:34 Laboratory: Laboratory Results - last 24 hr 09/15/23 06:47: POC Glucose 107 H 09/15/23 11:28: POC Glucose 98 09/15/23 16:56: POC Glucose 140 H 09/15/23 22:11: POC Glucose 105 09/16/23 05:26: POC Glucose 97 09/16/23 05:34: WBC 5.6, RBC 3.57 L, Hgb 10.6 L, Hct 33.1 L, MCV 92.7, MCH 29.7, MCHC 32.0, RDW Std Deviation 42.5, RDW Coeff of Cristiane 12.4, Plt Count 174, MPV 10.8, Sodium 143, Potassium 3.7, Chloride 115 H, Carbon Dioxide 24.0, Anion Gap 4 L, BUN 8, Creatinine 0.66, Estim Creat Clear Calc 42.00, Est GFR (MDRD) Af Amer 111, Est GFR (MDRD) Non-Af 92, BUN/Creatinine Ratio 12.2, Glucose 97, Calcium 8.7 D/C Instructions Discharge Diet: No restrictions Weight Bearing Status: Full weight bearing Pending Tests Upon Discharge: None Please Follow Up With: Maximiliano Doe MD When: As needed Meaningful Use Info Meaningful Use Diagnoses (Choose all that apply): None applicable Discharge Plan Admission Admit Date/Time: 09/13/23 16:30 Primary Reason for Your Visit: Colonic mass Attending Provider: Chris Lange Primary Care Provider: Maximiliano Doe Consulting Providers: Matheus Galeano; Mary Anne Pyle Instructions Additional Instructions / Restrictions: The surgery office will call to follow-up on your biopsy results in the next week. Continue all home medications as normal. Follow-up with your primary care doctor in the office as needed. Discharge Orders/Prescriptions Prescriptions: Continued atenolol 50 mg tablet 50 mg PO Q24H levothyroxine 25 mcg tablet 25 mcg PO DAILY metformin 500 mg tablet extended release 24 hr 500 mg PO DAILY sertraline 50 mg tablet 50 mg PO DAILY lisinopril 10 mg tablet 10 mg PO DAILY simvastatin 80 mg tablet 80 mg PO QHS triamterene-hydrochlorothiazid 37.5-25 mg capsule 1 cap PO DAILY multivitamin Tablet 1 tab PO DAILY Caltrate 600 plus D 600 mg-20 mcg (800 unit) tablet,chewable 1 tab PO DAILY aspirin [Adult Low Dose Aspirin] 81 mg tablet,delayed release (DR/EC) 81 mg PO DAILY Referrals / Follow Up: Maximiliano Doe MD [Primary Care Provider] - 09/20/23 9:50 am ([facility] Van will pick you up at 9 AM to take you to the appt with Dr Doe. Please call [facility] to cancel van transportation if your appt with Dr Doe gets changed. ) Disposition Disposition (needs filled in before D/C Order can be placed): Home, Self Care Charges/Coding Visit Charges Inpatient E&M: 30056 Disch Hosp >30min
[2023-09-16 12:11] LABS: Bedside Glucose 122 mg/dL (74-106)
--- NOTE | 2023-09-16 13:27 | NURSING ---
Pt is attempting to call her friend to transport her home. He is not available for immediate transport. This nurse is able to acquire a taxi at to take the pt home and the cost is $10.00 . Pt is notified and she is refusing to use taxi service stays her friend will take her home.
[2023-09-16 14:13] VITALS: BP 140/70; PULSE 66; RESP 18; TEMP 37; O2SAT 98
[2023-09-17 08:08] LABS: Carcinoembryonic Antigen 1.2 ng/mL (0.0-4.7)
--- OUTSIDE RECORDS SUMMARY | 2023-10-11 11:08 | XMS RPT_ITS | CCD ---
Author Name Unknown Address [address] [place] [address] Organization [facility] Care Team Providers Care Measurement Operator Name Role Phone YOBANI CONSTANCE L Primary [...] Start: 07-11-2023 End: 07-11-2023 ambulatory CONSTANCE Hickey [facility] [place] work Start: 07-11-2023 Encounter for genera l adult medical examination without abnormal findings CONSTANCE Hickey [facility] Start: 02-02-2023 End: 02-03-2023 ambulatory CONSTANCE Hickey [facility] work Start: 01-11-2023 End: 01-11-2023 ambulatory CONSTANCE Hickey [facility] work Start: 01-05-2023 End: 01-05-2023 ambulatory CONSTANCE Hickey [facility] work Procedures Date Procedure Procedure Detail Performing Clinician Start: 01-11-2023 Follow-up visit Follow-up JOSR CAMPA Start: 08-22-2022 Lipid panel CONSTANCE KAUR Payers Date Payer Category Payer Unknown [id number] 1945 Unknown [id number] 1945 Unknown [id number] 1945 Unknown [id number] 1945 Unknown [id number] Medicare [id number] Clinical Notes 03-16-2021 to 07-11-2023 Note Date & Type Note Facility 07-11-2023 Note Encounter Department : [facility] Progress Notes by MATTHEW Carpio at 07/11/2023 12:40 PM Author: MATTHEW CarpioService: -Author Type: Nurse Practitioner Filed: 07/11/2023 1:36 PMEncounter Date: 07/11/2023Status: Signed Unemployment Examiner: MATTHEW Carpio (Nurse Practitioner) Estela Perez [address] [place] [id number] : 78 y.o.: 1945hone: [phone] (home) Encounter Date: 07/11/2023 Vitals BP 118/68 [...] on 06-19-2023 but not completed as of yet)-ypylt-[id number]-[id number] will be obtained today Concerns today: none [...] total) by mouth 3 times a day.90 [id number] -GENERIC AMB PRESCRIPTION RXDiabetic shoes with custom molded inserts. Indications: diabetes1 Device0 -ketoconazole (NIZORAL) 2 % shampooAPPLY TO SCALP / FACE WHEN WASHING HAIR ,LEAVE ON 5-10 MINS THEN RINSE. -levothyroxine (SYNTHROID) 25 mcg tabletTake 1 tablet (25 mcg total) by mouth daily. before [id number] tablet0 -lisinopriL (PRINIVIL) 10 mg tabletTake 1 tablet (10 mg total) by mouth daily.90 tablet3 -metFORMIN (GLUCOPHAGE-XR) 500 mg 24 hr tabletTAKE 1 TABLET BY MOUTH EVERY DAY (EVERY 24 HOURS)90 tablet0 -sertraline (ZOLOFT) 50 mg tabletTake 1 tablet (50 mg total) by mouth daily.90 tablet1 -simvastatin (ZOCOR) 80 mg tabletTAKE 1 TABLET BY MOUTH EVERYDAY AT [id number] tablet3 -triamterene-hydrochlorot (more content not included)... [facility] 05-26-2023 Note Encounter Department : [facility] Progress Notes by Lucie Heredia at 05/26/2023 10:53 AM Author: Lucie Manuelervice: -Author Type: Clerical Staff Filed: 05/26/2023 10:56 AMEncounter Date: 05/26/2023Status: Signed Unemployment Examiner: Lucie Heredia (Clerical Staff) Diabetic Eye 12/19/2022 [facility] 05-09-2023 Note Encounter Department : [facility] Progress Notes by ROHAN Floyd LSW at 05/09/2023 10:11 AM Author: ROHAN Floyd LSWService: -Author Type: Inverter And Clipper Filed: 05/09/2023 11:02 AMEncounter Date: 05/09/2023Status: Signed Unemployment Examiner: ROHAN Floyd LSW (Inverter And Clipper) Discharge Note Patient Name: Estela Perez Date: 05/09/23 Encounter Type: phone SW contacted patient for follow up. Patient mentions her depressed mood and dark thoughts. However she denies SI and HI. She states that is not an options for her because she believes that she will not go to [facility] if she does that. Patient declines referrals [...] and her daughter had a fight at [employer]. Her daughter left her there without a ride. Now they have an estranged relationship and they only speak to each other on holidays. Because her and her daughter no longer have a good relationship, patient is working with a realtor and plans to move back to [place], [place]. Patient will hirer a [employer] that will help her pack her belongings up. However, patient states she may start collecting boxes on her own to pack up what she can and help reduce the costs of the move. Patient declines Social Work Service Needs at this time. SW will discharge patient and remove self from patient's care team. ROHAN Floyd LSW 05/09/2023 10:25 AM [facility] [phone] [facility] 05-03-2023 Note Encounter Department : [facility] Progress Notes by ROHAN Floyd LSW at 05/03/2023 10:38 AM Author: ROHAN Floyd LSWService: -Author Type: Inverter And Clipper Filed: 05/03/2023 10:40 AMEncounter Date: 05/03/2023Status: Signed Unemployment Examiner: ROHAN Floyd LSW (Inverter And Clipper) CHRIS attempted to follow up. No answer. SW left a HIPAA compliant voicemail requesting a call back. If no return call, CHRIS will attempt again at a later date and time. ROHAN Floyd LSW 05/03/2023 10:39 AM [facility] [phone] [facility] 04-26-2023 Note Encounter Department : [facility] Progress Notes by ROHAN Floyd LSW at 04/26/2023 9:34 AM Author: ROHAN Floyd LSWService: -Author Type: Inverter And Clipper Filed: 04/26/2023 9:35 AMEncounter Date: 04/26/2023Status: Signed Unemployment Examiner: ROHAN Floyd LSW (Inverter And Clipper) SW attempted to follow up. No answer. SW left a HIPAA compliant voicemail requesting a call back. If no return call, SW will attempt again at a later date and time. ROHAN Floyd LSW 04/26/2023 9:35 AM [facility] [phone] [facility] 04-05-2023 Note Encounter Department : [facility] Progress Notes by ROHAN Floyd LSW at 04/05/2023 11:51 AM Author: ROHAN Floyd LSWService: -Author Type: Inverter And Clipper Filed: 04/05/2023 12:40 PMEncounter Date: 04/05/2023Status: Signed Unemployment Examiner: ROHNA Floyd LSW (Inverter And Clipper) Initial Assessment Patient Name: Estela Perez Date: [...] states she is already connected to the [place] [facility]. She declined need for senior [...] Need. ROHAN Floyd LSW 04/05/2023 12:33 PM [facility] [phone] [facility] 04-03-2023 Note Encounter Department : [facility] Progress Notes by ROHAN Floyd LSW at 04/03/2023 11:00 AM Author: ROHAN Floyd LSWService: -Author Type: Inverter And Clipper Filed: 04/03/2023 11:04 AMEncounter Date: 04/03/2023Status: Signed Unemployment Examiner: ROHAN Floyd LSW (Inverter And Clipper) SW received a referral from Medication Assistance team to further assess community resource needs for the following concerns: Patient uses [employer] for transportation to and from medical appointments. Her neighbor takes her to and from grocery store. Patient does not have any other reliable transportation, because her children took away her car keys. Due to lack of transportation, patient is unable to bean picker machine operator her medications. Medication Assistance team provided her [...] needs. ROHAN Floyd LSW 04/03/2023 11:00 AM [facility] [phone] [facility] 02-21-2023 Note Encounter Department : [facility] Progress Notes by Brigida Plata CPhT at 02/21/2023 9:49 AM Author: Tamie Linares: -Author Type: Railroad Supervisor Of Engines Filed: 04/07/2023 8:53 AMEncounter Date: 02/21/2023Status: Signed Unemployment Examiner: Brigida Plata CPhT (Railroad Supervisor Of Engines) Medication Adherence Outreach 04/07/23 Patient identified for potential non-adherence via notification from patient's insurance provider, [employer] Medication(s): Lisinopril 10 mg Provider: MATTHEW Carpio NOTE: Veena Sanchez (CHRIS) was able to reach out to the patient, please see her notes. Please reach out with any questions or concerns. Brigida Plata CPhT [facility] 02-21-2023 Note Encounter Department : [facility] Progress Notes by Brigida Plata CPhT at 02/21/2023 9:49 AM Author: Tamie Linares: -Author Type: Railroad Supervisor Of Engines Filed: 04/03/2023 11:00 AMEncounter Date: 02/21/2023Status: Addendum Unemployment Examiner: Brigida Plata CPhT (Railroad Supervisor Of Engines) Related Notes: Original Note by Brigida Plata CPhT (Railroad Supervisor Of Engines) filed at 03/31/2023 4:28 PM Medication Adherence [...] with her. She moved up here from [place] to be closer to her family (within 10 minutes). She is nonadherent on her lisinopril because she has no way to bean picker machine operator her medications. I did discuss with her going through [facility], [facility], or a local pharmacy that offers delivery. I suggested contacting [employer] [facility] for [place], [place]. Please reach out with any questions or concerns. Brigida Plata CPhT [facility] 02-21-2023 Note Encounter Department : [facility] Progress Notes by Shilpa Miller CPhT at 02/21/2023 9:49 AM Author: Tamie Ceballos: -Author Type: Railroad Supervisor Of Engines Filed: 02/21/2023 9:55 AMEncounter Date: 02/21/2023Status: Signed Unemployment Examiner: Shilap Miller CPhT (Railroad Supervisor Of Engines) All Medication Therapy Problems Essential hypertension Current [...] is already receiving 90 day supply 02/21/2023 [facility] 02-21-2023 Note Encounter Department : [facility] Progress Notes by Brigida Plata CPhT at 02/21/2023 9:49 AM Author: Tamie Linares: -Author Type: Railroad Supervisor Of Engines Filed: 04/03/2023 11:02 AMEncounter Date: 02/21/2023Status: Signed Unemployment Examiner: Brigida Plata CPhT (Railroad Supervisor Of Engines) Medication Adherence Outreach 04/03/23 Patient identified for potential non-adherence via notification from patient's insurance provider, [employer] Medicare Medication(s): Lisinopril 10 mg Provider: Constance Jacinto, ELSA-HYDRAULIC PRESS OPERATOR NOTE: Please see my detailed notes below. I did reach out to Veena Sanchez (Inverter And Clipper) to discuss this patient. She will be getting in touch with the patient to discuss agencies local to her to assist with transportation and possible socialization/activities that might be available to her. Please reach out with any questions or concerns. Brigida Plata wrecker driver [facility] 02-02-2023 Note Encounter Department : [facility] Progress Notes by Ashly Rodriguez LPN at 02/02/2023 1:15 PM Author: Sana Baconice: -Author Type: Licensed Nurse Filed: 02/03/2023 1:13 PMEncounter Date: 02/02/2023Status: Signed Unemployment Examiner: Ashly Rodriguez LPN (Licensed Nurse) Spoke to pt this afternoon. She is aware of results and that urine did not meet criteria for Culture. Pt has not scheduled an appointment at this time where she was supposed to have her daughter be with her. [facility] 02-02-2023 Note Encounter Department : [facility] Progress Notes by MATTHEW Carpio at 02/02/2023 1:15 PM Author: Porter Carpioe: -Author Type: Nurse Practitioner Filed: 02/03/2023 10:00 AMEncounter Date: 02/02/2023Status: Signed Unemployment Examiner: MATTHEW Carpio (Nurse Practitioner) Urine was normal and did not meet criteria for culture [facility] 02-02-2023 Note Encounter Department : [facility] Progress Notes by Ashly Rodriguez LPN at 02/02/2023 12:45 PM Author: Sana Baconice: -Author Type: Licensed Nurse Filed: 02/03/2023 1:08 PMDate of Service: 02/02/2023 12:45 PMStatus: Signed Unemployment Examiner: Ashly Rodriguez LPN (Licensed Nurse) Spoke to pt, made her aware of results and need to repeat in 1 year. Pt verbalized understanding at time of call. [facility] 02-02-2023 Note Encounter Department : [facility] Progress Notes by MATTHEW Carpio at 02/02/2023 12:45 PM Author: MATTHEW CarpioSermagaliee: -Author Type: Nurse Practitioner Filed: 02/03/2023 10:04 AMDate of Service: 02/02/2023 12:45 PMStatus: Signed Unemployment Examiner: MATTHEW Carpio (Nurse Practitioner) Mammogram was normal Repeat in 1 year Lifetime breast cancer risk is 2.2% Risk of hereditary breast and ovarian cancer is not elevated 5-year breast cancer risk is not elevated Risk of Bay syndrome is not elevated [facility] 01-26-2023 Note Encounter Department : [facility] Progress Notes by Yoli Anders LPN at 01/26/2023 6:18 PM Author: IAN Smithervice: -Author Type: Licensed Nurse Filed: 01/26/2023 6:18 PMEncounter Date: 01/23/2023Status: Signed Unemployment Examiner: Yoli Anders LPN (Licensed Nurse) Patient made aware [facility] 01-26-2023 Note Encounter Department : [facility] Progress Notes by MATTHEW Carpio at 01/26/2023 10:25 AM Author: MATTHEW CarpioService: -Author Type: Nurse Practitioner Filed: 01/26/2023 10:25 AMEncounter Date: 01/23/2023Status: Signed Unemployment Examiner: MATTHEW Carpio (Nurse Practitioner) Basic metabolic panel was good other than a blood sugar of 121 Complete blood count is normal [facility] 01-11-2023 Note Encounter Department : [facility] Progress Notes by Josr Campa DPM at 01/11/2023 2:00 PM Author: ROBINA Fisherervice: -Author Type: Physician Filed: 01/20/2023 10:59 AMEncounter Date: 01/11/2023Status: Signed Unemployment Examiner: Josr Campa DPM (Physician) Progress Note SUBJECTIVE [...] total) by mouth 3 times a day.90 [id number] -GENERIC AMB PRESCRIPTION RXDiabetic shoes with custom molded inserts. Indications: diabetes1 Device0 -ketoconazole (NIZORAL) 2 % shampooAPPLY TO SCALP / FACE WHEN WASHING HAIR ,LEAVE ON 5-10 MINS THEN RINSE. -levothyroxine (SYNTHROID) 25 mcg tabletTAKE 1 TABLET BY MOUTH EVERY DAY BEFORE [id number] tablet0 -lisinopriL (PRINIVIL) 10 mg tabletTake 1 [...] distress. Lower Extremity: Diabetic Foot Exam See [place] Diabetes Association recommendation below. Right FootLeft Foot Inspection Neurological Assessment Vascular Assessment - Consider doing an CYNDI when having difficulty in palpating pulses. [place] Diabetes Association (2018) Guidelines/Recommendations: Perform annual foot examination to identify risk factors predictive of ulcers and amputations. The foot exam should include inspection, assessment of foot/leg pulses, and testing for loss of protective sensation. (10-g monofilament plus testing any one of: vibration using 128-Hz tuning fork, pinprick sensation, temperature, carly reflexes, or vibration perception threshold). - Quality Measure Documentation Requirement from JDK830; NQF 0056; MIPS 163 Dermatological- Nails 1 [...] diabetes mellitus with diabetic polyneuropathy, unspecified whether predatory animal exterminator insulin use ([facility]) E11.42 2.Neuropathy G62.9 3.Onychomycosis B35.1 4.Pain in [...] A1c's within n (more content not included)... [facility] 01-05-2023 Note Encounter Department : [facility] Progress Notes by MATTHEW Carpio at 01/05/2023 12:00 PM Author: MATTHEW CarpioService: -Author Type: Nurse Practitioner Filed: 01/05/2023 12:22 PMEncounter Date: 01/05/2023Status: Signed Unemployment Examiner: MATTHEW Carpio (Nurse Practitioner) Estela Perez [address] [address] : 77 y.o.: 1945hone: [phone] (home) Encounter Date: 01/05/2023 Vitals BP 112/64 [...] % % Current Outpatient Medications Ordered in [facility] MedicationSigDispenseRefill -atenoloL (TENORMIN) 50 mg tabletTake 1 tablet (50 mg total) by mouth daily.90 tablet3 -clobetasoL (TEMOVATE) 0.05 % external solutionAPPLY TO SCALP ONCE DAILY AT BEDTIME FOR UP TO 2 WEEK, THEN TAKE 1 WEEK OFF REPEAT NEEDED -gabapentin (NEURONTIN) 300 mg capsuleTake 2 capsules (600 mg total) by mouth 3 times a day.90 [id number] -GENERIC AMB PRESCRIPTION RXDiabetic shoes with custom molded inserts. Indications: diabetes1 Device0 -ketoconazole (NIZORAL) 2 % shampooAPPLY TO SCALP / FACE WHEN WASHING HAIR ,LEAVE ON 5-10 MINS THEN RINSE. -levothyroxine (SYNTHROID) 25 mcg tabletTAKE 1 TABLET BY MOUTH EVERY DAY BEFORE [id number] tablet0 -lisinopriL (PRINIVIL) 10 mg tabletTake 1 tablet (10 mg total) by mouth daily.90 tablet3 -metFORMIN (GLUCOPHAGE-XR) 500 mg 24 hr tabletTAKE 1 TABLET BY MOUTH EVERY DAY (EVERY 24 HOURS)90 tablet0 -sertraline (ZOLOFT) 50 mg tabletTake 1 tablet (50 (more content not included)... [facility] 03-16-2021 Note . MICRO - Microbiology PROCEDURE: Urine Culture [*1] SOURCE: Urine, Clean Catch BODY SITE: COLLECTED DATE/TIME: 03/14/2021 16:01 EDT RECEIVED DATE/TIME: 03/15/2021 15:20 EDT START DATE/TIME: 03/15/2021 15:21 EDT FREE TEXT SOURCE: FINAL REPORTS Final Report [] Verified Date/Time/Personnel: 03/16/2021 11:14 EDT <10,000 cfu/ml. No Significant growth. Sensitivity not indicated. Performing Locations *1: This test was performed at: [address], [address] [place] [address] ([place] Summary Purpose Family History No Family History Records FoundNo Family History Records Found Advance Directives No Advanced Directives Records FoundNo Advanced Directives Records Found Additional Source Comments INFORMATION SOURCE (unrecogn ized section and content) DATE CREATED AUTHOR AUTHOR'S ORGANIZ ATION 07/13/2023 [facility] FOR RECORDS PERTAINING TO PATIENTS WHO ARE [...] BE BASED ON THE PRIMARY CLINICAL RECORDS. [employer] provides no warranty or guarantee of the accuracy or completeness of information in this document.
== END 2023-09-16 14:19 | disposition home or self-care (01) | DRG 392 ==
LOC: ED 16:22 → MS3 09-14 07:07
PROVIDERS: Anesthesiology; Surgery; Admitting Provider Internal Medicine; Emergency Provider Emergency Medicine; PCP Family Medicine; Visit Provider Hospitalist
PROC: 0DJD8ZZ Inspection of Lower Intestinal Tract, Via Natural or Artificial Opening Endoscopic (ICD-10-PCS; CPT 45378; principal; 2023-09-15 14:55)
DX: K52.89 Other specified noninfective gastroenteritis and colitis (principal); E11.9 Type 2 diabetes mellitus without complications; E03.9 Hypothyroidism, unspecified; F32.A Depression, unspecified; I10 Essential (primary) hypertension; K57.30 Diverticulosis of large intestine without perforation or abscess without bleeding; K64.1 Second degree hemorrhoids; F41.9 Anxiety disorder, unspecified; K64.4 Residual hemorrhoidal skin tags; Z79.82 Long term (current) use of aspirin; Z79.84 Long term (current) use of oral hypoglycemic drugs; Z79.899 Other long term (current) drug therapy; Z86.16 Personal history of COVID-19; Z80.0 Family history of malignant neoplasm of digestive organs; Z79.890 Hormone replacement therapy
CPT/HCPCS: 45380; 45381; 36415; 71260; 74177; 80048; 80053; 81001; 82378; 82962; 83036; 83605; 83690; 84443; 85025; 85027; 88305; 88341; 88342; 93005; 96365; 96366; 96367; 96372; 96375; 96376; 99221; 99284; J7030; J7050; J7120; Q9967; A4216; A4648; G0378; J0744; J1610; J2405

== ENCOUNTER 2025-03-14 17:45 | Emergency (ER) | payer MEDICARE, SELFPAY ==
[2025-03-14 17:45] VITALS: BP 130/63; PULSE 67; RESP 18; TEMP 36.8; O2SAT 97
[2025-03-14 17:48] VITALS: BP 130/63; PULSE 67; RESP 18; TEMP 36.8; O2SAT 97; BMI 32.1
--- NOTE | 2025-03-14 18:21 | EX.ED.DYSGE1 ---
HPI <HILLARY Estrella - Last Filed: 03/14/25 20:46> History of Present Illness Chief Complaint: Wound Narrative Narrative: Patient presenting today with concerns for wound between her right 1st and 2nd toe that she first noticed about a week ago. She is not sure how long it has been there. Over the past few days she noticed worsening redness to her right second toe concerning her for infection. She does not currently have a electronics assembler and tester. She does have a history of T2DM and peripheral neuropathy. She denies fevers, chills, nausea, and vomiting. She is able to ambulate. She reports feeling well otherwise. [facility] <HILLARY Estrella - Last Filed: 03/14/25 20:46> [facility] Medical History Hyperlipidemia Type 2 diabetes mellitus Hypertension Depression Home Medications ?Medication ?Instructions ?Recorded ?Last Taken ?Type aspirin 81 mg tablet,delayed 81 mg PO DAILY HEART HEALTH 09/13/23 09/13/23 History release (Adult Low Dose Aspirin) atenolol 50 mg tablet 50 mg PO Q24H BLOOD PRESSURE 09/13/23 09/13/23 History calcium 600 mg (as carbonate)-vit 1 tab PO DAILY SUPPLEMENT 09/13/23 09/13/23 History D3 20 mcg (800 unit) chewable tablet (Caltrate plus D) levothyroxine 25 mcg tablet 25 mcg PO DAILY THYROID 09/13/23 09/13/23 History lisinopril 10 mg tablet 10 mg PO DAILY BLOOD PRESSURE 09/13/23 09/13/23 History metformin 500 mg tablet,extended 500 mg PO DAILY DIABETES 09/13/23 09/13/23 History release 24 hr multivitamin 1 tab PO DAILY HEART HEALTH 09/13/23 09/13/23 History sertraline 50 mg tablet 50 mg PO DAILY DEPRESSION 09/13/23 09/13/23 History simvastatin 80 mg tablet 80 mg PO QHS CHOLESTEROL 09/13/23 09/12/23 History triamterene 37.5 1 cap PO DAILY BLOOD PRESSURE 09/13/23 09/13/23 History mg-hydrochlorothiazide 25 mg capsule cephalexin 500 mg capsule 500 mg PO Q6 7 days #28 CAPSULES 03/14/25 Unknown Rx Allergy/AdvReac Type Severity Reaction Status Date / Time No Known Allergies Allergy Verified 03/14/25 17:49 Social History Smoking Status: Never smoker ROS <HILLARY Estrella - Last Filed: 03/14/25 20:46> ROS ED Constitutional Constitutional ED: Denies chills or fever(s) Cardiovascular Cardiovascular: Denies chest pain Respiratory/Chest Respiratory/Chest: Denies dyspnea Gastrointestinal Gastrointestinal: Denies abdominal pain, nausea or vomiting Musculoskeletal Musculoskeletal: Denies arthralgias Integumentary Reports other Details: Ulcerative wound between the 1st and 2nd toe on the right Neurologic Neurologic: Denies weakness EXAM <HILLARY Estrella - Last Filed: 03/14/25 20:46> Physical Exam Const Vital Signs: 03/14/25 17:45 03/14/25 17:48 03/14/25 18:48 Temperature 98.2 F 98.2 F 97.8 F Temperature Source Oral Oral Oral Pulse Rate 67 67 61 Respiratory Rate 18 18 16 Blood Pressure 130/63 H 130/63 H 110/58 L Blood Pressure Mean 85 85 75 Pulse Ox 97 97 100 Oxygen Delivery Method Room Air Room Air Room Air 03/14/25 19:36 Temperature 97.8 F Temperature Source Pulse Rate 61 Respiratory Rate 18 Blood Pressure 134/64 H Blood Pressure Mean 87 Pulse Ox 100 Oxygen Delivery Method Positive well nourished, well developed and no apparent distress General Appearance ED: well developed HEENT Reports normocephalic and head/scalp atraumatic Mouth ED: Yes moist mucous membranes normal Eyes PERRL and EOMs intact bilaterally Neck full ROM and supple Chest Wall inspection of chest normal Resp normal respiratory effort and clear to auscultation bilaterally Cardio regular rate and regular rhythm GI soft to palpation, non-tender, non-distended and no masses Back/Spine normal ROM and normal to inspection Extremity full ROM Extremity Narrative: Erythema to the right second toe. Small ulcerative wound to the medial aspect of the right second toe, skin irritation to the lateral aspect of the right first toe where they rub together. No purulent discharge. No lymphangitic streaking. Right DP pulse 2+, good cap refill, sensation intact. Neuro oriented x3, CN's II-XII intact bilaterally, moves all extremities, no focal motor deficits and no sensory deficits noted Sensorium / Orientation: awake and alert Psych mental status grossly normal and thought process normal Skin no rashes or lesions noted Skin Narrative: Aside from laceration to the right second toe no other rashes or lesions noted. <Dr. Ga Townsend DO - Last Filed: 03/14/25 20:23> Physical Exam Const Vital Signs: 03/14/25 17:45 03/14/25 17:48 03/14/25 18:48 Temperature 98.2 F 98.2 F 97.8 F Temperature Source Oral Oral Oral Pulse Rate 67 67 61 Respiratory Rate 18 18 16 Blood Pressure 130/63 H 130/63 H 110/58 L Blood Pressure Mean 85 85 75 Pulse Ox 97 97 100 Oxygen Delivery Method Room Air Room Air Room Air 03/14/25 19:36 Temperature 97.8 F Temperature Source Pulse Rate 61 Respiratory Rate 18 Blood Pressure 134/64 H Blood Pressure Mean 87 Pulse Ox 100 Oxygen Delivery Method MDM <HILLARY Estrella - Last Filed: 03/14/25 20:46> MDM MDM Narrative Medical decision making narrative: Patient presenting today with a wound to her right second toe, she has a small ulcerative wound to the medial aspect of the right toe where it rubs against her big toe. She has erythema to the right second toe. She reports that this has been ongoing over the last few days. She otherwise has been feeling well, she is nontoxic-appearing and in no acute distress. She is afebrile. X-ray of the right foot will be obtained to assess for osteomyelitis and does not show any acute findings. She has no leukocytosis, CRP minimally elevated, ESR is normal. BMP is unremarkable aside from a BUN of 25. I will refer her to podiatry. Recommended she have close outpatient follow-up. She will be started on Keflex with first dose here. Return instructions discussed and patient discharged home in stable condition. Lab Data Attestation: I reviewed the patient's lab results. Labs: Laboratory Results - last 24 hr 03/14/25 18:40 WBC 7.8 RBC 4.44 Hgb 13.7 Hct 39.7 MCV 89.4 MCH 30.9 MCHC 34.5 RDW Std Deviation 39.5 RDW Coeff of Cristiane 12.1 Plt Count 206 MPV 10.7 Immature Gran % (Auto) 0.400 Neut % (Auto) 61.9 Lymph % (Auto) 26.0 [place] % (Auto) 9.9 Eos % (Auto) 1.3 Baso % (Auto) 0.5 Absolute Neuts (auto) 4.9 Absolute Lymphs (auto) 2.04 Nucleated RBC % 0 ESR 18 Sodium 135 Potassium 4.7 Chloride 102 Carbon Dioxide 19.3 L Anion Gap 13 BUN 25 H Creatinine 0.79 Estim Creat Clear Calc 63.26 Est GFR (MDRD) Non-Af 75 BUN/Creatinine Ratio 31.9 H Glucose 100 H Calcium 9.7 C-React Prot Ext Range 5.29 H Radiography X-Ray: Read by ED Physician Diagnostic Testing: Clinical Impression(s) from Imaging Studies Foot X-Ray 03/14/25 19:00 IMPRESSION: DEGENERATIVE OSTEOARTHROSIS. NO ACUTE FINDINGS. Reading Location: [facility] <Dr. Ga Townsend, DO - Last Filed: 03/14/25 20:23> [facility] Lab Data Labs: Laboratory Results - last 24 hr 03/14/25 18:40 WBC 7.8 RBC 4.44 Hgb 13.7 Hct 39.7 MCV 89.4 MCH 30.9 MCHC 34.5 RDW Std Deviation 39.5 RDW Coeff of Cristiane 12.1 Plt Count 206 MPV 10.7 Immature Gran % (Auto) 0.400 Neut % (Auto) 61.9 Lymph % (Auto) 26.0 [place] % (Auto) 9.9 Eos % (Auto) 1.3 Baso % (Auto) 0.5 Absolute Neuts (auto) 4.9 Absolute Lymphs (auto) 2.04 Nucleated RBC % 0 ESR 18 Sodium 135 Potassium 4.7 Chloride 102 Carbon Dioxide 19.3 L Anion Gap 13 BUN 25 H Creatinine 0.79 Estim Creat Clear Calc 63.26 Est GFR (MDRD) Non-Af 75 BUN/Creatinine Ratio 31.9 H Glucose 100 H Calcium 9.7 C-React Prot Ext Range 5.29 H Radiography Diagnostic Testing: Clinical Impression(s) from Imaging Studies Foot X-Ray 03/14/25 19:00 IMPRESSION: DEGENERATIVE OSTEOARTHROSIS. NO ACUTE FINDINGS. Reading Location: [facility] Treatment and Re-Evaluation :: I have personally performed a face to face assessment of the patient and have reviewed the SAUD Note. I performed a substantive portion of the visit including all aspects of the following. My mleendez findings include: History: Patient presents with redness and swelling to her right second toe that has been getting worse since yesterday. Patient states it is gradually getting worse. Patient denies any fevers or chills. Patient is diabetic. Patient does not follow with a electronics assembler and tester. Patient states she was trying to schedule an appointment with a electronics assembler and tester. Patient denies any trauma or injury. Patient denies any discharge or drainage. Exam: Vital signs are stable. Patient is afebrile. Patient is in no acute distress. There is edema, erythema, and tenderness over the right second toe. There is a grade 2 ulceration on the medial aspect of the distal and middle phalanges of the right second toe. Sensation was intact to light touch in all digits. Capillary refill was less than 2 seconds in all digits. Range of motion was limited in flexion and extension of the second toe secondary to pain. Pedal pulses are equal bilaterally. Medical Decision Making: Differential diagnosis includes cellulitis, osteomyelitis, diabetic foot wound. X-rays of the right foot will be obtained to assess for osteomyelitis. CBC will be obtained to assess for leukocytosis and anemia. Basic metabolic profile will be obtained to assess for electrolyte abnormality and renal function. Sed rate and CRP will be obtained to assess for inflammatory markers. CBC was reviewed and was within normal limits. Sed rate was reviewed and was normal at 18. Basic metabolic profile was reviewed and was essentially within normal limits. CRP was reviewed and was slightly elevated at 5.29. X-rays of the right foot were obtained. There are 3 views. On my independent interpretation, there is no evidence of osteomyelitis. There is no acute fracture. Radiologist also interpreted the x-rays and agree. Patient was given a dose of Keflex here. Patient was given a prescription for Keflex. Patient was instructed to keep the wound clean and dry. Patient was given a podiatry referral. Patient understood and was agreeable with the plan. All questions were answered. Discharge Plan Triage Chief Complaint: Wound ED Midlevel Provider: Jeanie Epps ED Provider: Ga Townsend Dx/Rx/DC Orders Clinical Impression: Diabetic foot ulcer, Cellulitis Instructions: Cellulitis Dc Prescriptions: New cephalexin 500 mg capsule 500 mg PO Q6 7 Days Qty: 28 0RF No Action atenolol 50 mg tablet 50 mg PO Q24H levothyroxine 25 mcg tablet 25 mcg PO DAILY metformin 500 mg tablet extended release 24 hr 500 mg PO DAILY sertraline 50 mg tablet 50 mg PO DAILY lisinopril 10 mg tablet 10 mg PO DAILY simvastatin 80 mg tablet 80 mg PO QHS triamterene-hydrochlorothiazid 37.5-25 mg capsule 1 cap PO DAILY multivitamin Tablet 1 tab PO DAILY Caltrate 600 plus D 600 mg-20 mcg (800 unit) tablet,chewable 1 tab PO DAILY aspirin [Adult Low Dose Aspirin] 81 mg tablet,delayed release (DR/EC) 81 mg PO DAILY Primary Care Provider: Ruby Carr Referrals: Maximiliano Doe MD [Med Staff - Coal Sample Tester] - Mio Salas DPM [Med Staff - Active Staff] - 5-7 Days Activity Restrictions/Additional Instructions: I have referred you to podiatry, please follow-up. Return for any worsening symptoms or other concerns. Print Language: Citizen Of [place] Disposition Disposition: Home, Self Care Discharge Date/Time: 03/14/25 19:42
[2025-03-14 18:48] VITALS: BP 110/58; PULSE 61; RESP 16; TEMP 36.6; O2SAT 100
[2025-03-14 18:53] LABS: Absolute Lymphocyte Count 2.04 X10^3/uL (0.83-4.51); Absolute Neutrophil Count 4.9 X10^3/uL (2.0-7.7); Basophil# 0.04 X10^3/uL; Basophil% 0.5 % (0-1); Eosinophils% 1.3 % (0-5); Hematocrit 39.7 % (37-47); Hemoglobin 13.7 g/dL (12.0-15.0); Lymphocyte # 2.04 X10^3/ul (0.83-4.51); Mean Corp Hgb Conc 34.5 g/dL (32-36); Mean Corpuscular Hgb 30.9 pg (27.0-32.0); Mean Corpuscular Volume 89.4 fL (81-99); Mean Platelet Vol. 10.7 fl (6.2-12.0); Monocyte# 0.78 X10^3/uL; Monocyte% 9.9 % (0-10); NRBC Flagged by Analyzer 0 % (0-5); Neutrophil # 4.85 X10^3/uL (2.7-7.7); Neutrophil % 61.9 % (47-70); Platelet Count 206 K/mm3 (150-450); RBC Distribution Width CV 12.1 % (11.6-14.6); RBC Distribution Width SD 39.5 fl (35.1-43.9); Red Blood Count 4.44 M/mm3 (4.2-5.4); White Blood Count 7.8 K/mm3 (4.4-11.0)
[2025-03-14 18:58] LABS: Erythrocyte Sedimentation Rate 18 mm/hr (0-30)
--- NOTE | 2025-03-14 19:00 | RAD_ITS ---
PROCEDURE: FOOT MIN 3 VIEWS 03/14/2025 REASON FOR EXAM: FOOT WOUND 2ND TOE TECHNIQUE: FOOT MIN 3 VIEWS COMPARISON: None. FINDINGS: Bones: No visible fracture. No suspicious bone lesion. No cortical osseous lesion. Joints: Normal alignment. Moderate degenerative changes. Soft tissues: No radiopaque foreign body. RAD/Foot min 3 Views IMPRESSION: DEGENERATIVE OSTEOARTHROSIS. NO ACUTE FINDINGS. Reading Location: [id number]
[2025-03-14 19:20] LABS: CRP 5.29 mg/L (0.0-3.0)
[2025-03-14 19:25] LABS: Anion Gap 13 (5-15); BUN 25 mg/dL (4-19); BUN/Creat Ratio 31.9 RATIO (10-20); Calcium,Total 9.7 mg/dL (7.6-11.0); Carbon Dioxide 19.3 mmol/L (21.0-32.0); Chloride 102 mmol/L (98-108); Creatinine, Serum 0.79 mg/dL (0.70-1.20); EST Glomerular Filtration Rate 75 (>60); Estimated Creatinine Clearance 63.26 ml/min (50-250); Glucose 100 mg/dL (70-99); Potassium 4.7 mmol/L (3.3-5.1); Sodium Level 135 mmol/L (133-145)
[2025-03-14 19:36] VITALS: BP 134/64; PULSE 61; RESP 18; TEMP 36.6; O2SAT 100
[2025-03-14] MEDS: Cephalexin 250 MG Capsule 500 MG PO (19:40)
== END 2025-03-14 19:42 | disposition home or self-care (01) ==
PROVIDERS: Physician Assistant; Emergency Provider Emergency Medicine; PCP Nurse Practitioner Family; Visit Provider Emergency Medicine
DX: E11.621 Type 2 diabetes mellitus with foot ulcer (principal); L97.519 Non-pressure chronic ulcer of other part of right foot with unspecified severity; E11.42 Type 2 diabetes mellitus with diabetic polyneuropathy; L03.031 Cellulitis of right toe; I10 Essential (primary) hypertension; E78.5 Hyperlipidemia, unspecified; F32.A Depression, unspecified
CPT/HCPCS: 73630; 80048; 85025; 85652; 86140; 99282; A4216

== ENCOUNTER 2025-06-18 09:27 | Observation (INO) | payer MEDICARE, SELFPAY ==
[2025-06-18] VITALS (10 sets, daily range): BP systolic 101–137; BP diastolic 55–71; PULSE 63–78; RESP 15–18; TEMP 36.6–37.1; O2SAT 93–100; BMI 31.4; BMI 30.6
--- NOTE | 2025-06-18 09:39 | ED.RN ---
during assessment pt. is very distracted and it is difficult to confirm a LKW and what her exact symptoms are. pt then states she has numbness also in her left foot.
--- NOTE | 2025-06-18 09:42 | EKG12_ITS ---
Test Reason : NUMB/TINGLING Blood Pressure : */* mmHG Vent. Rate : 64 BPM Atrial Rate : 64 BPM P-R Int : 222 ms QRS Dur : 106 ms QT Int : 420 ms P-R-T Axes : 55 -35 72 degrees QTcB Int : 433 ms Sinus rhythm with sinus arrhythmia with 1st degree A-V block Left axis deviation Septal infarct (cited on or before 15-Sep-2023) Abnormal ECG Confirmed by RACQUEL DAVE, ALICIA ([id number]), editor greeting card LUKE RIVERA ([id number]) on 06/20/2025 10:31:03 AM Referred By: CALI Confirmed By: ALICIA CLEMENT MD
--- NOTE | 2025-06-18 09:44 | ED.VIS.STROK ---
HPI History of Present Illness Chief Complaint: Numb/Ting Detail of Chief Complaint: Paresthesias Informant: patient Narrative Narrative: Patient presents the emergency department complaint paresthesias to the face and right toes. Also thinks she may have had some odd sensations to the right hand and arm this morning. She noticed the paresthesias upon waking this morning. She went to bed around 11:00 last night and did not have any of the sensations. Denies headache. Denies falls or injuries. Denies recent illness. Denies difficulty with speech. Denies vision changes. Denies focal weakness. [facility] Medical History Hyperlipidemia Type 2 diabetes mellitus Hypertension Depression Home Medications ?Medication ?Instructions ?Recorded ?Last Taken ?Type aspirin 81 mg tablet,delayed 81 mg PO DAILY HEART HEALTH 09/13/23 09/13/23 History release (Adult Low Dose Aspirin) atenolol 50 mg tablet 50 mg PO Q24H BLOOD PRESSURE 09/13/23 09/13/23 History calcium 600 mg (as carbonate)-vit 1 tab PO DAILY SUPPLEMENT 09/13/23 09/13/23 History D3 20 mcg (800 unit) chewable tablet (Caltrate plus D) levothyroxine 25 mcg tablet 25 mcg PO DAILY THYROID 09/13/23 09/13/23 History lisinopril 10 mg tablet 10 mg PO DAILY BLOOD PRESSURE 09/13/23 09/13/23 History metformin 500 mg tablet,extended 500 mg PO DAILY DIABETES 09/13/23 09/13/23 History release 24 hr multivitamin 1 tab PO DAILY HEART HEALTH 09/13/23 09/13/23 History sertraline 50 mg tablet 50 mg PO DAILY DEPRESSION 09/13/23 09/13/23 History simvastatin 80 mg tablet 80 mg PO QHS CHOLESTEROL 09/13/23 09/12/23 History triamterene 37.5 1 cap PO DAILY BLOOD PRESSURE 09/13/23 09/13/23 History mg-hydrochlorothiazide 25 mg capsule Allergy/AdvReac Type Severity Reaction Status Date / Time No Known Allergies Allergy Verified 06/18/25 09:36 Social History Smoking Status: Never smoker ROS ROS ED Review of Systems ROS Unobtainable: other Constitutional Constitutional ED: Reports lethargy; Denies chills, fever(s), sweats or weight loss Eyes Eyes: Denies blurry vision, change in vision or diplopia ENT ENT ED: Denies rhinorrhea or sore throat Cardiovascular Cardiovascular: Denies chest pain, orthopnea or racing heartbeat Respiratory/Chest Respiratory/Chest: Reports dyspnea on exertion; Denies cough, dyspnea, orthopnea or sputum Gastrointestinal Gastrointestinal: Denies abdominal pain, diarrhea, nausea or vomiting Genitourinary Genitourinary ED: Denies dysuria, hematuria or urinary frequency Musculoskeletal Musculoskeletal: Denies arthralgias, back pain, myalgias or neck pain Integumentary Denies abscess, Abrasions or rash Neurologic Neurologic: Reports paresthesias; Denies headache(s) or weakness Psychiatric Psychiatric: Denies anxiety, depression or suicidal thoughts Endocrine Endocrinology: Denies polydipsia, polyphagia or polyuria Hematologic/Lymphatic Hematologic/Lymphatic: Denies easy bleeding, easy bruising or lymphadenopathy Allergic/Immunologic Allergic/Immunologic ED: Denies mouth swelling, tongue swelling or urticaria EXAM Physical Exam Const Vital Signs: 06/18/25 09:30 06/18/25 09:53 06/18/25 11:28 Temperature 98.7 F Temperature Source Oral Pulse Rate 65 67 Respiratory Rate 17 18 Blood Pressure 115/55 L 134/63 H Blood Pressure Mean 75 86 Pulse Ox 99 98 Oxygen Delivery Method Room Air Room Air Room Air Positive well nourished and well developed General Appearance ED: well developed and NAD HEENT Reports TM's clear and moist mucous membranes normocephalic and atraumatic; Negative for trauma or tenderness Tympanic Membrane ED: Yes TM's clear Eyes PERRL and EOMs intact bilaterally General Eye ED: Negative for pale conjunctiva or scleral icterus Neck no lymphadenopathy, supple and no JVD General: Negative for tenderness Chest Wall inspection of chest normal and palpation of chest normal Chest: Negative for tenderness Resp normal respiratory effort and clear to auscultation bilaterally Effort and Inspection: Negative for respiratory distress or pain with movement Auscultation: Negative for rhonchi, wheezes or diminished lung sounds Cardio regular rate, regular rhythm, S1 normal heart sound, S2 normal heart sound and no murmurs Peripheral Pulses: pulses 2+ throughout GI normal to inspection, nondistended, normoactive bowel sounds, soft to palpation, non-tender, non-distended and no masses Back/Spine no CVA tenderness and no thoracic nor lumbar tenderness Extremity normal to inspection General Extremety ED: Negative for edema General Extremity: Negative for edema Neuro oriented x3, CN's II-XII intact bilaterally, no sensory deficits noted and gait normal Neuro Narrative: Patient with paresthesias involving the right side of the face and right foot. NIH stroke scale 1 based on these findings. No focal weakness. No facial droop. No vision changes. No ataxia. Sensorium / Orientation: awake, alert, oriented to person, oriented to place and oriented to time Motor Exam: strength 5/5 throughout and strength abnormal Psych mental status grossly normal Skin no rashes or lesions noted and no wounds MDM MDM MDM Narrative Medical decision making narrative: Patient presents with paresthesias to the right face and right foot possibly right upper extremity. She is somewhat of a poor historian. She tells me the nurse practitioner she filed a grievance against recently wanted to do a scan of her brain but she never followed through with it because she told her that she was forgetful. Patient living at home currently. Symptoms that started last evening. She is not going to be a thrombolytic candidate. Will obtain CT brain as well as CTA head and neck and basic labs as well as an EKG. CBC with differential was unremarkable. Chemistry is unremarkable. Troponin minimally elevated 19 however not having any chest pain and very low concern for acute coronary syndrome. CT scan of the brain without contrast showed no acute intracranial pathology. CTA of the head and neck showed no acute large vessel occlusions or stenoses. Patient quite forgetful in the emergency department having a hard time remembering that she had seen me several times. Will discuss with hospitalist to admit for concern for stroke needs completion of stroke workup including MRI of brain. May need social work evaluation as well. Lab Data Attestation: I reviewed the patient's lab results. Labs: Laboratory Results - last 24 hr 06/18/25 10:00 WBC 5.8 RBC 3.89 L Hgb 11.8 L Hct 35.8 L MCV 92.0 MCH 30.3 MCHC 33.0 RDW Std Deviation 43.5 RDW Coeff of Cristiane 13.2 Plt Count 177 MPV 11.0 Immature Gran % (Auto) 0.300 Neut % (Auto) 64.1 Lymph % (Auto) 23.9 [place] % (Auto) 9.1 Eos % (Auto) 2.1 Baso % (Auto) 0.5 Absolute Neuts (auto) 3.7 Absolute Lymphs (auto) 1.39 Nucleated RBC % 0 PT 12.7 INR 0.9 APTT < 20.0 L Sodium 139 Potassium 4.1 Chloride 108 Carbon Dioxide 18.1 L Anion Gap 13 BUN 25 H Creatinine 0.84 Estim Creat Clear Calc 59.55 Est GFR (MDRD) Non-Af 69 BUN/Creatinine Ratio 29.7 H Glucose 133 H Calcium 9.4 Troponin T High Sens 19 H Radiography Diagnostic Testing: Clinical Impression(s) from Imaging Studies Brain CT 06/18/25 11:02 IMPRESSION: Mucosal thickening is visible in the floor of the right maxillary sinus. No acute intracranial pathology. Reading Location: [facility] Head/Neck CTA 06/18/25 11:02 IMPRESSION: No significant stenosis or occlusion is identified in the arterial system of the head or neck. Reading Location: [facility] EKG Initial EKG: Attestation: I personally reviewed and interpreted this EKG as follows: Comments: Sinus rhythm with occasional PACs and first-degree AV block. Old septal infarct. Discharge Plan Dx/Rx/DC Orders Clinical Impression: Paresthesias, Confusion Disposition Disposition: Acute Care [facility]
[2025-06-18 10:08] LABS: Hematocrit 35.8 % (37-47); Hemoglobin 11.8 g/dL (12.0-15.0); Immature Granulocytes Count 0.020 X10^3/uL (0.0-0.0); Mean Corp Hgb Conc 33.0 g/dL (32-36); Mean Corpuscular Volume 92.0 fL (81-99); Mean Platelet Vol. 11.0 fl (6.2-12.0); NRBC Flagged by Analyzer 0 % (0-5); Platelet Count 177 K/mm3 (150-450); RBC Distribution Width CV 13.2 % (11.6-14.6); RBC Distribution Width SD 43.5 fl (35.1-43.9); Red Blood Count 3.89 M/mm3 (4.2-5.4); White Blood Count 5.8 K/mm3 (4.4-11.0)
[2025-06-18] MEDS: 0.9% Normal Saline (1000mL) 1,000 ML 100 ML IV (10:28)
[2025-06-18 10:29] LABS: Prothrombin Time (Protime)PT. 12.7 SECONDS (11.7-14.9)
[2025-06-18 10:49] LABS: Anion Gap 13 (5-15); BUN 25 mg/dL (4-19); BUN/Creat Ratio 29.7 RATIO (10-20); Calcium,Total 9.4 mg/dL (7.6-11.0); Carbon Dioxide 18.1 mmol/L (21.0-32.0); Chloride 108 mmol/L (98-108); Estimated Creatinine Clearance 59.55 ml/min (50-250); Glucose 133 mg/dL (70-99); Potassium 4.1 mmol/L (3.3-5.1); Troponin T High Sensitivity 19 ng/L (<=14)
--- NOTE | 2025-06-18 11:02 | CT_ITS ---
PROCEDURE: STROKE CTA HEAD AND NECK W/CON 06/18/2025 REASON FOR EXAM: NEURO DEFICIT, ACUTE, STROKE SUSPECTED TECHNIQUE: Procedure Code: CTCTA.ST.HN Modality: CT Procedure: STROKE CTA HEAD AND NECK W/CON Multiplanar Sagittal and Coronal images were obtained. CONTRAST: 100 cc Isovue 370 One or more dose reduction techniques were used (e.g., Automated exposure control, adjustment of the mA and/or kV according to patient size, use of iterative reconstruction technique). RADIATION DOSE SUMMARY: DLP: 1535 mGycm COMPARISON: None FINDINGS: Aortic Arch: Patent Brachiocephalic and Subclavians: Patent RIGHT Carotid: Right CCA: Patent Right ICA: Patent atherosclerotic calcifications are noted Maximum stenosis (NASCET): 0 % Right ECA: Patent LEFT Carotid: Left CCA: Patent Left ICA: Patent atherosclerotic calcifications are noted. Maximum stenosis (NASCET): 0 % Left ECA: Patent Vertebrals: Patent RIGHT Vertebral: Patent LEFT Vertebral: Patent Anatomy: Patent Aneurysm or avm: None Anterior cerebral arteries: Patent Middle cerebral arteries: Patent Basilar artery: Patent Posterior cerebral arteries: Patent Other major branches of the posterior circulation: Patent Major venous structures: Patent Other findings: Neck: Unremarkable lungs: Clear bones: There is no acute bony abnormality. CT/STROKE CTA Head AND Neck W/Con IMPRESSION: No significant stenosis or occlusion is identified in the arterial system of th e head or neck. Reading Location: [facility]
--- NOTE | 2025-06-18 11:02 | CT_ITS ---
EXAM: NONCONTRAST CT SCAN OF THE HEAD CLINICAL HISTORY: Neuro deficit acute stroke COMPARISON: None TECHNIQUE: Serial axial series through the head were obtained without contrast. 2-D coronal and sagittal reformats were then obtained. FINDINGS: Brain: There is no acute large territorial infarct, intracranial hemorrhage, midline shift or mass effect. There are atherosclerotic vascular calcifications involving the bilateral carotid siphons. The sella and pineal gland regions appear unremarkable. There is no evidence of cerebellar tonsillar herniation. Ventricles: There is no acute hydrocephalus. Basilar cisterns are patent. Paranasal sinuses: Mucosal thickening is visible in the floor of the right maxillary sinus. Mastoid air cells: Well-aerated. Calvarium: The bony calvarium is intact. Orbits: The bilateral globes are symmetric, without retrobulbar compressive mass lesion or hemorrhage. CT/STROKE Brain/Head without Cont IMPRESSION: Mucosal thickening is visible in the floor of the right maxillary sinus. No acute intracranial pathology. Reading Location: [facility]
[2025-06-18 11:26] LABS: Partial Thromboplast Time < 20.0 Seconds (24.1-36.2)
--- NOTE | 2025-06-18 11:54 | PCM.HP.STD ---
HPI - General General Date of Admission: 06/18/25 Date of Service: 06/18/25 Chief Complaint: Patchy paresthesia of right foot and right side of face. HPI Narrative JOSEFA AYALA, is a 79 F came to ED with concern of altered sensation/paresthesia of right foot and right side of the face. She says that she has chronic pain on the right second toe and saw organic lab worker and was prescribed cream. She said she had altered sensation/tingling yesterday although mentioned in the morning today in triage note. Patient has dementia therefore I am not sure about the timing of the onset of symptoms. Denies any focal weakness, change in his speech or vision. No headache In ED, patient had CT head and CT angiogram of head and neck which did not show acute intracranial pathology. Patient is further admitted for further workup of stroke. [facility] Medical History Hyperlipidemia Type 2 diabetes mellitus Hypertension Depression Home Medications ?Medication ?Instructions ?Recorded ?Last Taken ?Type aspirin 81 mg tablet,delayed 81 mg PO DAILY HEART HEALTH 09/13/23 09/13/23 History release (Adult Low Dose Aspirin) atenolol 50 mg tablet 50 mg PO Q24H BLOOD PRESSURE 09/13/23 09/13/23 History calcium 600 mg (as carbonate)-vit 1 tab PO DAILY SUPPLEMENT 09/13/23 09/13/23 History D3 20 mcg (800 unit) chewable tablet (Caltrate plus D) levothyroxine 25 mcg tablet 25 mcg PO DAILY THYROID 09/13/23 09/13/23 History lisinopril 10 mg tablet 10 mg PO DAILY BLOOD PRESSURE 09/13/23 09/13/23 History metformin 500 mg tablet,extended 500 mg PO DAILY DIABETES 09/13/23 09/13/23 History release 24 hr multivitamin 1 tab PO DAILY HEART HEALTH 09/13/23 09/13/23 History sertraline 50 mg tablet 50 mg PO DAILY DEPRESSION 09/13/23 09/13/23 History simvastatin 80 mg tablet 80 mg PO QHS CHOLESTEROL 09/13/23 09/12/23 History triamterene 37.5 1 cap PO DAILY BLOOD PRESSURE 09/13/23 09/13/23 History mg-hydrochlorothiazide 25 mg capsule Allergy/AdvReac Type Severity Reaction Status Date / Time No Known Allergies Allergy Verified 06/18/25 09:36 Social History Smoking Status: Never smoker ROS ROS Narrative Constitutional: Denies acute fatigue and weakness. No fever. HEENT: Reports systems reviewed and no addt'l complaints, except as documented Respiratory/Chest: No acute shortness of breath or respiratory distress or wheezing. Never been a smoker. CVS: No chest pain. Denies history of coronary artery disease or CHF or other chronic cardiac disease. Gastrointestinal: Denies coffee ground emesis, hematemesis or vomiting Genitourinary: Denies burning urination or new urinary tract symptoms Musculoskeletal: Denies acute joint pain or limited range of motion. No acute injury Neurologic: Denies seizure-like symptoms. Rest as described in HPI skin: No ulcer. No rash Endocrinology: Reports systems reviewed and no addt'l complaints, except as documented Hematologic/Lymphatic: Reports systems reviewed and no addt'l complaints, except as documented Rest 14 ROS are negative except as mentioned in HPI Vital Signs Vital Signs Vital Signs: 06/18/25 09:30 06/18/25 09:53 06/18/25 11:28 Temperature 98.7 F Temperature Source Oral Pulse Rate 65 67 Respiratory Rate 17 18 Blood Pressure 115/55 L 134/63 H Blood Pressure Mean 75 86 Pulse Ox 99 98 Oxygen Delivery Method Room Air Room Air Room Air Weight Weight: 199 lb 11.821 oz Body Mass Index (BMI) 31.4 Physical Exam Narrative General: Alert, Oriented x3, Cooperative HEENT: Atraumatic, PERRLA, EOMI, Normocephalic. Oral: No Gingival or Mucosal Lesions/ Ulcerations Neck: Supple, No JVD, Negative Carotid Bruits Chest wall/Lungs: Air entry equal in bilateral lung bases. No crepitation/rhonchi Cardiovascular: Regular rate and rhythm, Normal S1,S2, No M/G/R Abdomen: Bowel Sounds Present, Soft, Non Tender, Non-Distended : No dysuria. No renal angle tenderness. No suprapubic tenderness. Extremities: No edema, Capillary Refill Less than 3 Seconds Skin: Toenails are thickened, right second toe, chronic scab of feel ulcer on medial margin. Onychomycosis. Musculoskeletal: No Tenderness to Palpation of Joints or Extremities Neurological: Cranial nerves II-XII grossly intact, DTR 2+/4. No acute focal neurological deficit. Psych/Mental Status: Flat affect, forgetful. Dementia Results Lab / Micro Data 06/18/25 10:00 06/18/25 10:00 Labs: Laboratory Results - last 24 hr 06/18/25 10:00: WBC 5.8, RBC 3.89 L, Hgb 11.8 L, Hct 35.8 L, MCV 92.0, MCH 30.3, MCHC 33.0, RDW Std Deviation 43.5, RDW Coeff of Cristiane 13.2, Plt Count 177, MPV 11.0, Immature Gran % (Auto) 0.300, Neut % (Auto) 64.1, Lymph % (Auto) 23.9, [place] % (Auto) 9.1, Eos % (Auto) 2.1, Baso % (Auto) 0.5, Absolute Neuts (auto) 3.7, Absolute Lymphs (auto) 1.39, Nucleated RBC % 0, PT 12.7, INR 0.9, APTT < 20.0 L, Sodium 139, Potassium 4.1, Chloride 108, Carbon Dioxide 18.1 L, Anion Gap 13, BUN 25 H, Creatinine 0.84, Estim Creat Clear Calc 59.55, Est GFR (MDRD) Non-Af 69, BUN/Creatinine Ratio 29.7 H, Glucose 133 H, Calcium 9.4, Troponin T High Sens 19 H Imaging Radiology Impression Brain CT 06/18/25 11:02 IMPRESSION: Mucosal thickening is visible in the floor of the right maxillary sinus. No acute intracranial pathology. Reading Location: [facility] Head/Neck CTA 06/18/25 11:02 IMPRESSION: No significant stenosis or occlusion is identified in the arterial system of the head or neck. Reading Location: [facility] Assessment & Plan Assessment/Plan (1) Paresthesias: PLAN: Plan This is a 79-year-old female admitted for altered sensation in right foot and right side of face. 1. Altered sensation/paresthesia/tingling of right foot and right side of face: Patient is being admitted to PCU. From history and CT head done in ED, stroke seems less likely. CTA head and neck does not show acute hemodynamically significant stenosis or occlusion. PT, OT, speech therapy/swallow evaluation and management, nursing NIH stroke scale, BP and glucose monitoring and control as per stroke protocol. TSH, A1c fasting lipid profile tomorrow AM. MRI brain and 2D echo with bubble contrast study ordered 2. Type 2 diabetes mellitus: Hold metformin. Accu-Chek before meals and at bedtime with Humalog sliding scale coverage and hypoglycemia protocol. 3. Hypertension: BP in normal range as per her age. Follow-up stroke guidelines for patient admitted for workup of stroke. 4. Hypothyroidism: Continue home Synthroid. 5. Anxiety and depression and dementia: Follow with PCP bilateral PE evaluation by neurologist as an outpatient for dementia 6. Sigmoid colon mass found on colonoscopy in September 2023 during last admission: Colonoscopy biopsy was done. Pathology reported no evidence of malignancy. Focal reactive changes. Chronic right foot second toe heel ulcer/onychomycosis: Outpatient follow-up with organic lab worker. 7. DVT prophylaxis, high risk: Lovenox 40 mg subcu daily. Living will/advanced directive/end of life care: Patient does not have living will or advanced directive. She said that she is in preparation of a living will with the help of her management who is a commonwealth attorney. Her next of kin is her daughter. After discussion of benefits/risks procedures involved with full code, DNR CC arrest and DNR CC, the patient opted for DNR CC arrest with no intubation Patient doesn't want artificial life support including intubation, tube feed, ventilator and/chest compression, central venous catheter, vasopressor and DC shock if needed Total time spent in [id number] encounter in discussion of advanced directive 17 minutes. Charges/Coding Visit Charges Inpatient E&M: 71104 Init Hosp L3 Procedures Hospitalists Procedures: 22564 Advncd Care Plan 30 Min
--- NOTE | 2025-06-18 12:22 | ED.RN ---
per dr ag, do not give heparin. Medication ordered on wrong patient
[2025-06-18 12:30] LABS: Troponin T High Sens 2 HR 24 ng/L (<=14)
--- NOTE | 2025-06-18 12:35 | MRI_ITS ---
PROCEDURE: MRI BRAIN WITHOUT CONTRAST 06/18/2025 REASON FOR EXAM: SUSPECTED STROKE TECHNIQUE: Procedure Code: MRIBR Modality: MR Procedure: BRAIN WITHOUT CONTRAST Multiplanar and multisequential MRI of the brain was performed without contrast. COMPARISON: CT head/angiography earlier same day 06/18/2025. FINDINGS: No regions of abnormal restricted diffusion to indicate recent infarct. No evidence of intracranial hemorrhage, extra-axial collection, mass-effect, or other acute abnormality. Mild generalized brain parenchymal volume loss, and chronic small-vessel ischemic-gliotic changes in the supratentorial white matter. Preserved major vascular flow voids. Grossly unremarkable orbits. Peripheral mucosal thickening in the floors of the maxillary sinuses, greater on the right. No mastoid effusions. MRI/Brain without Contrast IMPRESSION: 1. No acute intracranial abnormality; no acute infarct. 2. Mild generalized parenchymal volume loss and chronic microangiopathic change s. 3. Maxillary sinus disease, greater on the right. Reading Location: [facility]
--- NOTE | 2025-06-18 12:35 | ECHOD_ITS ---
Reason For Study Reason For Study: TIA/CVA Procedure This was a 2D Doppler, Color Flow transthoracic echocardiogram. The study was technically difficult. Exam performed portable in patient room. Left Ventricle Normal LV size. Left ventricular systolic function is normal. The left ventricular ejection fraction is 60 %. No regional wall motion abnormalities noted. Right Ventricle Normal RV size. Normal systolic function. Atria Normal left atrium. Normal right atrium. Mitral Valve Normal mitral valve. Tricuspid Valve Normal tricuspid valve. Aortic Valve Normal aortic valve. Trisinus/trileaflet aortic valve. Pulmonic Valve Normal pulmonic valve. Great Vessels Normal aortic root. The pulmonary artery is normal size. Inferior vena cava collapse with respiration. Pericardium/Pleural No pericardial effusion. MMode/2D Measurements & Calculations LVIDd: 4.5 cm IVSd: 1.0 cm Ao root diam: 3.2 cm LVIDs: 3.3 cm LVPWd: 0.78 cm RVDd: 3.9 cm FS: 27.0 % LAV(MOD-bp): 43.8 ml LVAd ap4: 28.7 cm2 SV(MOD-sp4): 53.0 ml LAV(MOD-bp) Indexed: 21.9 ml/m2 LVLd ap4: 7.3 cm SI(MOD-sp4): 26.5 ml/m2 LAV(MOD-sp2): 42.3 ml EDV(MOD-sp4): 91.3 ml LAV(MOD-sp4): 45.8 ml EDV(sp4-el): 95.1 ml LVAs ap4: 16.6 cm2 LVLs ap4: 5.9 cm ESV(MOD-sp4): 38.3 ml ESV(sp4-el): 39.4 ml EF(MOD-sp4): 58.0 % EF(sp4-el): 58.5 % SV(sp4-el): 55.7 ml LA A4 area: 17.2 cm2 RA A4 area: 13.6 cm2 TAPSE: 2.2 cm Time Measurements MV dec time: 0.19 sec Doppler Measurements & Calculations MV E max jesse: 86.2 cm/sec Lat Peak E' Jesse: 13.2 cm/sec Med Peak E' Jesse: 8.9 cm/sec MV A max jesse: 95.3 cm/sec E/E' lat: 6.5 E/E' med: 9.6 MV E/A: 0.90 MV V2 max: 104.1 cm/sec MV P1/2t max jesse: 95.5 cm/sec Ao V2 max: 140.1 cm/sec MV max P.3 mmHg MV P1/2t: 67.9 msec Ao max P.9 mmHg MV V2 mean: 60.5 cm/sec MV dec slope: 411.6 cm/sec2 Ao V2 mean: 93.9 cm/sec MV mean P.7 mmHg Ao mean P.2 mmHg MV V2 VTI: 35.1 cm MVA(P1/2t): 3.2 cm2 Ao V2 VTI: 34.7 cm AV (velocity ratio): 0.83 LV V1 max: 119.1 cm/sec PA V2 max: 95.9 cm/sec TR max jesse: 235.4 cm/sec LV V1 max P.7 mmHg TR max P.2 mmHg LV V1 mean P.0 mmHg LV V1 mean: 79.9 cm/sec LV V1 VTI: 28.9 cm ECHO/Echo Complete Interpretation Summary Normal LV size. Left ventricular systolic function is normal. The left ventricular ejection fraction is 60 %. Structurally normal valves. Ordering Physician: Adolfo Miller Performed By: Ag Hampton RCS
[2025-06-18 13:02] LABS: Hematocrit 35.1 % (37-47); Hemoglobin 12.0 g/dL (12.0-15.0); Immature Granulocytes Count 0.020 X10^3/uL (0.0-0.0); Mean Corp Hgb Conc 34.2 g/dL (32-36); Mean Corpuscular Volume 90.9 fL (81-99); Mean Platelet Vol. 11.0 fl (6.2-12.0); NRBC Flagged by Analyzer 0 % (0-5); Platelet Count 202 K/mm3 (150-450); RBC Distribution Width CV 13.1 % (11.6-14.6); RBC Distribution Width SD 42.4 fl (35.1-43.9); Red Blood Count 3.86 M/mm3 (4.2-5.4); White Blood Count 6.8 K/mm3 (4.4-11.0)
[2025-06-18 13:15] LABS: Partial Thromboplast Time 22.8 Seconds (24.1-36.2); Prothrombin Time (Protime)PT. 13.3 SECONDS (11.7-14.9)
[2025-06-18 13:22] LABS: Magnesium 2.3 mg/dL (1.5-2.2)
[2025-06-18] MEDS: 0.9% Saline Lock 10 ML Syringe IV ×2 (13:32→21:36)
[2025-06-18 15:36] LABS: Troponin T High Sens 4 HR 25 ng/L (<=14)
--- NOTE | 2025-06-18 15:42 | CHAPLAIN ---
Type of Pastoral Visit _x__ Initial Visit ___ Follow-up Visit ___ On-call Visit ___ General Patient Visit ___ Spiritual Assessment ___ Family Conference ___ Bereavement ___ Rapid Response ___ Code Blue ___ Other (describe below) Pastoral Care Referral From _x__ Patient ___ Family ___ Nurse ___ Physician ___ Javascript Programmer ___ Websphere Portal Architect ___ Other (describe below) Sacrament/Intervention _x__ Active listening ___ Anointing ___ Yarsanism ___ Bereavement ___ Communion _x__ Brittani exploration ___ _x__ Life review _x__ Prayer ___ Reconciliation ___ Sacrament of Sick _x__ Supportive presence ___ Wedding ___ Other (describe below) Pastoral Comments patient is very happy to see the lobbyist and stops her phone conversation so she can visit with the lobbyist; pt gives lots of life review and current situations about 'inability to go to [employer]' and 'disappointment with being bound mostly to home'; pt identifies as a [employer] believer that is saddened by missing her connection with friends at [employer] and being physically in the building for oriental orthodox times; pt remembers a dwain lobbyist and speaks of the impact that she had on her life; pt seeks spiritual care support and prayer for her help today; pt would welcome future visits if possible
[2025-06-18] MEDS: Senna/Docusate Sodium 1 Tablet 2 TABLET PO (21:25)
[2025-06-19 03:25] VITALS: BP 117/57; PULSE 62; RESP 16; TEMP 36.6; O2SAT 98
[2025-06-19] MEDS: Lidocaine 5% Patch 1 PATCH TOPICAL (04:55)
[2025-06-19 05:46] LABS: Hematocrit 34.6 % (37-47); Hemoglobin 11.6 g/dL (12.0-15.0); Immature Granulocytes Count 0.010 X10^3/uL (0.0-0.0); Mean Corp Hgb Conc 33.5 g/dL (32-36); Mean Corpuscular Volume 92.3 fL (81-99); Mean Platelet Vol. 10.8 fl (6.2-12.0); NRBC Flagged by Analyzer 0 % (0-5); Platelet Count 196 K/mm3 (150-450); RBC Distribution Width CV 13.1 % (11.6-14.6); RBC Distribution Width SD 44.1 fl (35.1-43.9); Red Blood Count 3.75 M/mm3 (4.2-5.4); White Blood Count 6.0 K/mm3 (4.4-11.0)
[2025-06-19 06:19] LABS: Anion Gap 11 (5-15); BUN 19 mg/dL (4-19); BUN/Creat Ratio 22.7 RATIO (10-20); Calcium,Total 9.3 mg/dL (7.6-11.0); Carbon Dioxide 22.2 mmol/L (21.0-32.0); Chloride 108 mmol/L (98-108); Cholesterol 148 mg/dL (<=200); Estimated Creatinine Clearance 60.03 ml/min (50-250); Glucose 111 mg/dL (70-99); Low Density Lipoprotein Calc. 59 mg/dL; Potassium 4.6 mmol/L (3.3-5.1); Triglycerides 70 mg/dL; Very Low Density Lipoprotein 14 mg/dL (5-40); cholesterol:hdl ratio screen 1.98
[2025-06-19 08:06] VITALS: BP 109/60; PULSE 64; RESP 16; TEMP 36.7; O2SAT 98
[2025-06-19 08:11] VITALS: BMI 30.6
--- NOTE | 2025-06-19 08:38 | DCINST_ITS ---
Discharge Instructions DC O2, CPAP, BIPAP needs Home O2 Discharge instructions: No Follow Up Care Test Results: Test results from this visit will be discussed in further detail at your follow- up appointment, if applicable. Discharge Plan Admission Admit Date/Time: 06/18/25 11:55 Attending Provider: Adolfo Miller Primary Care Provider: Care Physician,No Primary Consulting Providers: Romeo Han; Kamlesh Chamberlain; Eryn Iniguez; Christine Pike; Maria Luisa Martínez; Nic Liz; Sindhu Rosenbaum; Kyrie Ma; Victor Manuel Lyn; Waldemar Mackenzie; Traci Simmons; Bess Orellana; Bryce Cervantes; Lynsey Sosa; Patricia Doyle; Leroy Reyes; Rojelio Ram; Elisa Ibarra; Wai Tiwari; Peggy Patiño; Saji Mustafa Discharge Orders/Prescriptions Prescriptions: Continued atenolol 50 mg tablet 50 mg PO Q24H levothyroxine 25 mcg tablet 25 mcg PO DAILY sertraline 50 mg tablet 50 mg PO DAILY simvastatin 80 mg tablet 80 mg PO QHS multivitamin Tablet 1 tab PO DAILY Caltrate 600 plus D 600 mg-20 mcg (800 unit) tablet,chewable 1 tab PO DAILY aspirin [Adult Low Dose Aspirin] 81 mg tablet,delayed release (DR/EC) 81 mg PO DAILY Held metformin 500 mg tablet extended release 24 hr 500 mg PO DAILY Hold Instructions: Hold for 2 days because of IV contrast lisinopril 10 mg tablet 10 mg PO DAILY Hold Instructions: Hold for SBP less than 130 mmHg triamterene-hydrochlorothiazid 37.5-25 mg capsule 1 cap PO DAILY Hold Instructions: Hold for SBP less than 130 mmHg Referrals / Follow Up: Care Physician,No Primary [Primary Care Provider, Medical] Ruby Carr NP-C [Non-Staff, Medical] Disposition Disposition (needs filled in before D/C Order can be placed): Home, Self Care
--- NOTE | 2025-06-19 08:40 | PCM.DC.SUM ---
Providers Date of Admission: 06/18/25 Date of Discharge: 06/19/25 Primary Care Physician: Gely Primary Care Phys Consultations 06/18/25 12:35 Consult: Tele-Neurology Routine Consulting Provider: [facility] Reason for Consult: Acute Ischemic Stroke/TIA EMERGENT Consult: No MD Notified: Yes Date Notified: 06/18/25 Time Notified: 15:14 Method of Notification: Answering Service Nursing Unit Staff Notify [facility] of Tele-Neurology Consult: Yes Reason For Visit: NUMBNESS ON RIGHT SIDE Diagnosis Discharge Diagnosis (1) Paresthesias: Status: Acute Code(s): R20.2 - Paresthesia of skin Plan This is a 79-year-old female admitted for altered sensation in right foot and right side of face. 1. Altered sensation/paresthesia/tingling of right foot and right side of face: Patient is being admitted to PCU. From history and CT head done in ED, stroke seems less likely. CTA head and neck does not show acute hemodynamically significant stenosis or occlusion. PT, OT, speech therapy/swallow evaluation and management, nursing NIH stroke scale, BP and glucose monitoring and control as per stroke protocol. MRI does not show acute intracranial abnormality, no ischemia or bleed. 2D echo shows normal LV size EF 60% normal left atrium. No ASD. Patient is discharged home. . Lipid profile within normal limit. Seen by neurologist. Recommended follow-up with neurologist as an outpatient. Recommended gabapentin 300 mg 3 times daily. Most likely patient has diabetic neuropathy. Acute stroke ruled out. 2. Type 2 diabetes mellitus: Hold metformin. Accu-Chek before meals and at bedtime with Humalog sliding scale coverage and hypoglycemia protocol. 06/19: A1c 6.1% suggestive of good diabetic control. 3. Hypertension: BP in normal range as per her age. Follow-up stroke guidelines for patient admitted for workup of stroke. 06/19: Blood pressure in normal range 4. Hypothyroidism: Continue home Synthroid. TSH high normal 4.5. Follow-up with PCP and repeat TSH and free T4 in 6 weeks 5. Anxiety and depression and dementia: Follow with PCP bilateral PE evaluation by neurologist as an outpatient for dementia 6. Sigmoid colon mass found on colonoscopy in September 2023 during last admission: Colonoscopy biopsy was done. Pathology reported no evidence of malignancy. Focal reactive changes. Chronic right foot second toe heel ulcer/onychomycosis: Outpatient follow-up with assistant chief train dispatcher. 7. DVT prophylaxis, high risk: Lovenox 40 mg subcu daily. Living will/advanced directive/end of life care: Patient does not have living will or advanced directive. She said that she is in preparation of a living will with the help of her management who is a deputy prosecuting attorney. Her next of kin is her daughter. After discussion of benefits/risks procedures involved with full code, DNR CC arrest and DNR CC, the patient opted for DNR CC arrest with no intubation Patient doesn't want artificial life support including intubation, tube feed, ventilator and/chest compression, central venous catheter, vasopressor and DC shock if needed Discharge medication reconciliation done. Discharge follow-up instructions completed. Discharge process discussed with the patient and all questions were answered to patient's satisfaction. Follow with PCP in 1 to 2 weeks Total time spent, exact 35 minutes on discharge meds reconciliation, examination, coordination of care with nurses and ancillary staff, review of imaging and blood test and discussion with the patient on follow-up instructions. Medications at Discharge Home Medications aspirin 81 mg tablet,delayed release (Adult Low Dose Aspirin) 81 mg PO DAILY HEART HEALTH 09/13/23 atenolol 50 mg tablet 50 mg PO Q24H BLOOD PRESSURE 09/13/23 calcium 600 mg (as carbonate)-vit D3 20 mcg (800 unit) chewable tablet (Caltrate plus D) 1 tab PO DAILY SUPPLEMENT 09/13/23 levothyroxine 25 mcg tablet 25 mcg PO DAILY THYROID 09/13/23 lisinopril 10 mg tablet 10 mg PO DAILY BLOOD PRESSURE 09/13/23 Held on 06/19/25. Instructions: Hold for SBP less than 130 mmHg metformin 500 mg tablet,extended release 24 hr 500 mg PO DAILY DIABETES 09/13/23 Held on 06/19/25. Instructions: Hold for 2 days because of IV contrast multivitamin 1 tab PO DAILY HEART HEALTH 09/13/23 sertraline 50 mg tablet 50 mg PO DAILY DEPRESSION 09/13/23 simvastatin 80 mg tablet 80 mg PO QHS CHOLESTEROL 09/13/23 triamterene 37.5 mg-hydrochlorothiazide 25 mg capsule 1 cap PO DAILY BLOOD PRESSURE 09/13/23 Held on 06/19/25. Instructions: Hold for SBP less than 130 mmHg Physical Exam Narrative Seen and examined. No acute issues. General: Alert, Oriented x3, Cooperative HEENT: Atraumatic, PERRLA, EOMI, Normocephalic. Oral: No Gingival or Mucosal Lesions/ Ulcerations Neck: Supple, No JVD, Negative Carotid Bruits Chest wall/Lungs: Air entry equal in bilateral lung bases. No crepitation/rhonchi Cardiovascular: Regular rate and rhythm, Normal S1,S2, No M/G/R Abdomen: Bowel Sounds Present, Soft, Non Tender, Non-Distended : No dysuria. No renal angle tenderness. No suprapubic tenderness. Extremities: No edema, Capillary Refill Less than 3 Seconds Skin: Toenails are thickened, right second toe, chronic scab of feel ulcer on medial margin. Onychomycosis. Musculoskeletal: No Tenderness to Palpation of Joints or Extremities Neurological: Cranial nerves II-XII grossly intact, DTR 2+/4. No acute focal neurological deficit. Psych/Mental Status: Flat affect, forgetful. Dementia Weight / BMI Weight Weight: 195 lb 5.273 oz Body Mass Index (BMI) 30.6 ABG / Lab / Microbiology Data 06/19/25 05:27 06/19/25 05:27 Laboratory: Laboratory Results - last 24 hr 06/18/25 14:38: Troponin T Hi Sens 4Hr 25 H 06/18/25 16:14: POC Glucose 117 H 06/18/25 21:22: POC Glucose 132 H 06/19/25 05:27: WBC 6.0, RBC 3.75 L, Hgb 11.6 L, Hct 34.6 L, MCV 92.3, MCH 30.9, MCHC 33.5, RDW Std Deviation 44.1 H, RDW Coeff of Cristiane 13.1, Plt Count 196, MPV 10.8, Immature Gran % (Auto) 0.200, Neut % (Auto) 55.7, Lymph % (Auto) 31.4, [place] % (Auto) 9.0, Eos % (Auto) 3.2, Baso % (Auto) 0.5, Absolute Neuts (auto) 3.3, Absolute Lymphs (auto) 1.88, Nucleated RBC % 0, Sodium 141, Potassium 4.6, Chloride 108, Carbon Dioxide 22.2, Anion Gap 11, BUN 19, Creatinine 0.84, Estim Creat Clear Calc 60.03, Est GFR (MDRD) Non-Af 70, BUN/Creatinine Ratio 22.7 H, Glucose 111 H, Hemoglobin A1c 6.1 H, Calcium 9.3, Triglycerides 70, Cholesterol 148, LDL Cholesterol, Calc 59, VLDL Cholesterol 14, HDL Cholesterol 75, Cholesterol/HDL Ratio 1.98, TSH 4.510 H 06/19/25 06:29: POC Glucose 111 H 06/19/25 11:51: POC Glucose 129 H Radiography Diagnostic Testing: Radiology Impression Brain MRI 06/18/25 12:35 IMPRESSION: 1. No acute intracranial abnormality; no acute infarct. 2. Mild generalized parenchymal volume loss and chronic microangiopathic changes. 3. Maxillary sinus disease, greater on the right. Reading Location: [facility] Echocardiogram 06/18/25 12:35 Interpretation Summary Normal LV size. Left ventricular systolic function is normal. The left ventricular ejection fraction is 60 %. Structurally normal valves. Ordering Physician: Adolfo Miller Performed By: Ag Hampton RCS D/C Instructions DC O2, CPAP, BIPAP Needs Home O2 Discharge instructions: No Meaningful Use Info Meaningful Use Meaningful Use Diagnoses (Choose all that apply): None applicable Discharge Plan Admission Admit Date/Time: 06/18/25 11:55 Attending Provider: Adolfo Miller Primary Care Provider: Care Physician,No Primary Consulting Providers: Romeo Han; Kamlesh Chamberlain; Eryn Iniguez; Christine Pike; Maria Luisa Martínez; Nic Liz; Sindhu Rosenbaum; Kyrie Ma; Victor Manuel Lyn; Waldemar Mackenzie; Traci Simmons; Bess Orellana; Bryce Cervantes; Lynsey Sosa; Patricia Doyle; Leroy Reyes; Rojelio Ram; Elisa Ibarra; Wai Tiwari; Peggy Patiño; Saji Mustafa Discharge Orders/Prescriptions Prescriptions: Continued atenolol 50 mg tablet 50 mg PO Q24H levothyroxine 25 mcg tablet 25 mcg PO DAILY sertraline 50 mg tablet 50 mg PO DAILY simvastatin 80 mg tablet 80 mg PO QHS multivitamin Tablet 1 tab PO DAILY Caltrate 600 plus D 600 mg-20 mcg (800 unit) tablet,chewable 1 tab PO DAILY aspirin [Adult Low Dose Aspirin] 81 mg tablet,delayed release (DR/EC) 81 mg PO DAILY Held metformin 500 mg tablet extended release 24 hr 500 mg PO DAILY Hold Instructions: Hold for 2 days because of IV contrast lisinopril 10 mg tablet 10 mg PO DAILY Hold Instructions: Hold for SBP less than 130 mmHg triamterene-hydrochlorothiazid 37.5-25 mg capsule 1 cap PO DAILY Hold Instructions: Hold for SBP less than 130 mmHg Referrals / Follow Up: Care Physician,No Primary [Primary Care Provider, Medical] Ruby Carr NP-C [Non-Staff, Medical] Dino Charles MD [Non-Staff -Ordering Privileges, Neurology] - Within 1 Month Referral Note: For possible diabetic neuropathy. Disposition Disposition (needs filled in before D/C Order can be placed): Home, Self Care Charges/Coding Visit Charges Inpatient E&M: 77246 Disch Hosp >30min
--- NOTE | 2025-06-19 08:56 | CASEMGMT ---
Social Work Per imaging pt negative for stroke, therefore PHQ9 not completed. MARLYN Heredia
[2025-06-19] MEDS: Senna/Docusate Sodium 1 Tablet 2 TABLET PO (10:23)
--- NOTE | 2025-06-19 10:39 | PHA.DC_ITS ---
Pharmacy [facility] [place] Counseling Pharmacy Service has performed discharge medication reconciliation and counseling for this patient. The patient's discharge medication list was reviewed for discrepancies and discrepancies were resolved. The patient was counseled on the following discharge medications and changes in medications for homegoing were reviewed. - Metformin is being held for 2 days due to recent contrast dye use. The Reason for Use, instructions for use, and potential side effects were reviewed for all new medications. The patient's questions regarding all of their medications were answered. The patient was able to verbally demonstrate an understanding of their discharge medications. Medications at Discharge Home Medications aspirin 81 mg tablet,delayed release (Adult Low Dose Aspirin) 81 mg PO DAILY HEART HEALTH 09/13/23 atenolol 50 mg tablet 50 mg PO Q24H BLOOD PRESSURE 09/13/23 calcium 600 mg (as carbonate)-vit D3 20 mcg (800 unit) chewable tablet (Caltrate plus D) 1 tab PO DAILY SUPPLEMENT 09/13/23 levothyroxine 25 mcg tablet 25 mcg PO DAILY THYROID 09/13/23 lisinopril 10 mg tablet 10 mg PO DAILY BLOOD PRESSURE 09/13/23 Held on 06/19/25. Instructions: Hold for SBP less than 130 mmHg metformin 500 mg tablet,extended release 24 hr 500 mg PO DAILY DIABETES 09/13/23 Held on 06/19/25. Instructions: Hold for 2 days because of IV contrast multivitamin 1 tab PO DAILY HEART HEALTH 09/13/23 sertraline 50 mg tablet 50 mg PO DAILY DEPRESSION 09/13/23 simvastatin 80 mg tablet 80 mg PO QHS CHOLESTEROL 09/13/23 triamterene 37.5 mg-hydrochlorothiazide 25 mg capsule 1 cap PO DAILY BLOOD PRESSURE 09/13/23 Held on 06/19/25. Instructions: Hold for SBP less than 130 mmHg
--- NOTE | 2025-06-19 11:13 | CON.PCM.NE_ITS ---
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 MRI brain negative . Recommend gabapentin 300 mg TID and f/p with neurology as an outpatient . No further inpatient work is warranted. HPI Consult Data Date of Consult: 06/19/25 [facility] Medical History Hyperlipidemia Type 2 diabetes mellitus Hypertension Depression Home Medications ?Medication ?Instructions ?Recorded ?Last Taken ?Type aspirin 81 mg tablet,delayed 81 mg PO DAILY HEART HEAL TH 09/13/23 09/13/23 History release (Adult Low Dose Aspirin) atenolol 50 mg tablet 50 mg PO Q24H BLOOD PRESSURE 09/13/23 09/13/23 History calcium 600 mg (as carbonate)-vit 1 tab PO DAILY SUPPL EMENT 09/13/23 09/13/23 History D3 20 mcg (800 unit) chewable tablet (Caltrate plus D) levothyroxine 25 mcg tablet 25 mcg PO DAILY THYROID 09/13/23 History lisinopril 10 mg tablet 10 mg PO DAILY BLOOD PRESSUR E 09/13/23 09/13/23 History Held on 06/19/25. Instructions: Hold for SBP less than 130 mmHg metformin 500 mg tablet,extended 500 mg PO DAILY DIABE DORIAN 09/13/23 09/13/23 History release 24 hr Held on 06/19/25. Instructions: Hold for 2 days because of IV contrast multivitamin 1 tab PO DAILY HEART HEALTH 09/13/23 09/13/23 History sertraline 50 mg tablet 50 mg PO DAILY DEPRESSION 09/13/23 History simvastatin 80 mg tablet 80 mg PO QHS CHOLESTEROL 09/12/23 History triamterene 37.5 1 cap PO DAILY BLOOD PRESSUR E 09/13/23 09/13/23 History mg-hydrochlorothiazide 25 mg capsule Held on 06/19/25. Instructions: Hold for SBP less than 130 mmHg Allergy/AdvReac Type Severity Reaction Status Date / Time No Known Allergies Allergy Verified 06/18/25 09:36 Social History Smoking Status: Unknown if ever smoked Vital Signs Vital Signs Vital Signs: 06/18/25 11:28 06/18/25 12:00 06/18/25 12:40 Temperature 98.6 F Temperature Source Pulse Rate 67 66 78 Pulse Strength Respiratory Rate 18 15 16 Respiratory Effort Respiratory Depth Respiratory Pattern Blood Pressure 134/63 H 121/66 H 101/56 L Blood Pressure Mean 86 84 71 Blood Pressure Source Blood Pressure Position Blood Pressure Location Pulse Ox 98 100 100 Oxygen Delivery Method Room Air Room Air 06/18/25 13:09 06/18/25 13:10 06/18/25 13:56 Temperature 97.8 F Temperature Source Oral Pulse Rate 64 Pulse Strength Respiratory Rate 18 Respiratory Effort Normal Non-Labored Respiratory Depth Normal Respiratory Pattern Normal Blood Pressure 137/71 H Blood Pressure Mean 93 Blood Pressure Source Monitor Blood Pressure Position Semi-Fowlers Blood Pressure Location Left Arm Pulse Ox 100 Oxygen Delivery Method Room Air Room Air Room Air 06/18/25 15:38 06/18/25 15:50 06/18/25 16:41 Temperature 98.2 F Temperature Source Oral Pulse Rate 63 Pulse Strength Respiratory Rate 16 Respiratory Effort Respiratory Depth Respiratory Pattern Blood Pressure 126/63 H Blood Pressure Mean 84 Blood Pressure Source Monitor Blood Pressure Position Semi-Fowlers Blood Pressure Location Left Arm Pulse Ox 93 93 100 Oxygen Delivery Method Room Air Room Air 06/18/25 20:15 06/18/25 20:40 06/19/25 03:25 Temperature 98.4 F 97.8 F Temperature Source Oral Oral Pulse Rate 65 62 Pulse Strength Respiratory Rate 18 16 Respiratory Effort Respiratory Depth Respiratory Pattern Blood Pressure 117/67 117/57 L Blood Pressure Mean 83 77 Blood Pressure Source Monitor Monitor Blood Pressure Position Semi-Fowlers Semi-Fowlers Blood Pressure Location Left Arm Left Arm Pulse Ox 99 99 98 Oxygen Delivery Method Oxyhood Room Air Room Air 06/19/25 03:27 06/19/25 08:06 06/19/25 08:11 Temperature 98.0 F Temperature Source Oral Pulse Rate 64 Pulse Strength Normal (2+) Respiratory Rate 16 Respiratory Effort Respiratory Depth Respiratory Pattern Blood Pressure 109/60 Blood Pressure Mean 76 Blood Pressure Source Monitor Blood Pressure Position Semi-Fowlers Blood Pressure Location Left Arm Pulse Ox 98 Oxygen Delivery Method Room Air Room Air 06/19/25 09:10 Temperature Temperature Source Pulse Rate Pulse Strength Respiratory Rate Respiratory Effort Respiratory Depth Respiratory Pattern Blood Pressure Blood Pressure Mean Blood Pressure Source Blood Pressure Position Blood Pressure Location Pulse Ox Oxygen Delivery Method Room Air Weight Weight: 88.6 kg Body Mass Index (BMI) 30.6 EEG Results Procedure Details EEG Procedure Details: JOSEFA AYALA is a 79 year old F with a past medical history of , who presents for evaluation of Electroencephalogram on DATE at TIME Lab / Micro Data 06/19/25 05:27 06/19/25 05:27 Labs: Laboratory Results - last 24 hr 06/18/25 10:00: PT 12.7, INR 0.9, APTT < 20.0 L, Magnesium 2.3 H 06/18/25 12:01: Troponin T Hi Sens 2 Hr 24 H 06/18/25 12:40: WBC 6.8, RBC 3.86 L, Hgb 12.0, Hct 35.1 L, MCV 90.9, MCH 31.1, MCHC 34.2, RDW Std Deviation 42.4, RDW Coeff of Cristiane 13.1, Plt Count 202, MPV 11.0, Immature Gran % (Auto) 0.300, Neut % (Auto) 67.6, Lymph % (Auto) 23.3, [place] % (Auto) 7.2, Eos % (Auto) 1.2, Baso % (Auto) 0.4, Absolute Neuts (auto) 4.6, Absolute Lymphs (auto) 1.58, Nucleated RBC % 0, PT 13.3, INR 1.0, APTT 22.8 L 06/18/25 14:38: Troponin T Hi Sens 4Hr 25 H 06/18/25 16:14: POC Glucose 117 H 06/18/25 21:22: POC Glucose 132 H 06/19/25 05:27: WBC 6.0, RBC 3.75 L, Hgb 11.6 L, Hct 34.6 L, MCV 92.3, MCH 30.9, MCHC 33.5, RDW Std Deviation 44.1 H, RDW Coeff of Cristiane 13.1, Plt Count 196, MPV 10.8, Immature Gran % (Auto) 0.200, Neut % (Auto) 55.7, Lymph % (Auto) 31.4, [place] % (Auto) 9.0, Eos % (Auto) 3.2, Baso % (Auto) 0.5, Absolute Neuts (auto) 3.3, Absolute Lymphs (auto) 1.88, Nucleated RBC % 0, Sodium 141, Potassium 4.6, Chloride 108, Carbon Dioxide 22.2, Anion Gap 11, BUN 19, Creatinine 0.84, Estim Creat Clear Calc 60.03, Est GFR (MDRD) Non-Af 70, BUN/Creatinine Ratio 22.7 H, G lucose 111 H, Hemoglobin A1c 6.1 H, Calcium 9.3, Triglycerides 70, Cholesterol 148, LDL Cholesterol, Calc 59, VLDL Cholesterol 14, HDL Cholesterol 75, Cholesterol/HDL Ratio 1.98, TSH 4.510 H 06/19/25 06:29: POC Glucose 111 H Imaging Radiology Impression Brain CT 06/18/25 11:02 IMPRESSION: Mucosal thickening is visible in the floor of the right maxillary sinus. No acute intracranial pathology. Reading Location: [facility] Head/Neck CTA 06/18/25 11:02 IMPRESSION: No significant stenosis or occlusion is identified in the arterial system of the head or neck. Reading Location: [facility] Brain MRI 06/18/25 12:35 IMPRESSION: 1. No acute intracranial abnormality; no acute infarct. 2. Mild generalized parenchymal volume loss and chronic microangiopathic changes. 3. Maxillary sinus disease, greater on the right. Reading Location: [facility] Active Medications Active Medications Active Medications: Current Medications Generic Name Dose Route Start Last Admin Trade Name Freq PRN Reason Stop Dose Admin Acetaminophen 650 mg 06/18/25 12:35 06/19/25 04:55 Acetaminophen 325 Mg Tablet PO 650 mg Q4H PRN PRN Administration Pain 1-10 Or Fever>99.6 Aspirin 81 mg 06/19/25 08:00 06/19/25 10:22 Aspirin 81 Mg Tab.Chew PO 81 mg BREAKFAST GOGO Administration Atorvastatin Calcium 40 mg 06/18/25 22:00 06/18/25 21:25 Atorvastatin Calcium 40 Mg Tablet PO 40 mg QHS GOGO Administration Enoxaparin Sodium 40 mg 06/18/25 13:00 06/19/25 10:23 Enoxaparin 40 Mg/0.4 Ml Syringe SC 40 mg DAILY GOGO Administration Glucagon 1 mg 06/18/25 15:33 Glucagon 1 Mg/Ml Syringe IM X1 PRN Hypoglycemia Protocol Hydralazine HCl 5 mg 06/18/25 12:35 Hydralazine 20 Mg/Ml Vial IV 06/19/25 12:35 Q30M PRN maintain BP parameters with HR <60 Sodium Chloride 250 mls @ 15 mls/hr 06/18/25 12:49 IV .[id number] PRN Saline Flush Sodium Chloride 250 mls @ 15 mls/hr 06/18/25 12:49 IV .[id number] PRN Additional IVPB Infusion Dextrose 250 mls @ 0 mls/hr 06/18/25 15:33 Dextrose 10%-Water IV .Q0M PRN HYPOGLYCEMIA Protocol As Directed Insulin Human Lispro 0 unit 06/18/25 16:00 06/19/25 06:31 Insulin Lispro 100 Unit/Ml Insuln.Pen SC Not Given ACHS GOGO Protocol Labetalol HCl 10 - 20 mg 06/18/25 12:35 Labetalol 20 Mg/4 Ml Vial IV 06/19/25 12:35 Q10M PRN PRN maintain BP parameters with HR >/=60 Levothyroxine Sodium 25 mcg 06/19/25 06:00 06/19/25 04:55 Levothyroxine 25 Mcg Tablet PO 25 mcg DAILY@0600 GOGO Administration Lidocaine 1 patch 06/19/25 04:10 06/19/25 04:55 Lidocaine 5% Patch TOPICAL 1 patch DAILY GOGO Administration Protocol Nitroglycerin 0.4 mg 06/18/25 12:35 Nitroglycerin (Inpatient Use) 0.4 Mg Tab.Subl SL Q5M PRN CARDIAC/CHEST PAIN Pantoprazole Sodium 40 mg 06/19/25 10:00 06/19/25 10:23 Pantoprazole Sodium 40 Mg Tablet PO 40 mg DAILY GOGO Administration Senna/Docusate Sodium 2 tablet 06/18/25 22:00 06/19/25 10:23 Senna/Docusate Sodium 1 Tablet PO 2 tablet BID GOGO Administration Sertraline HCl 50 mg 06/19/25 10:00 06/19/25 10:22 Sertraline 50 Mg Tablet PO 50 mg DAILY GOGO Administration Sodium Chloride 10 - 40 ml 06/18/25 12:49 06/18/25 21:36 0.9% Saline Lock 10 Ml Syringe IV 10 ml UD PRN Administration SALINE FLUSH NIHSS NIHSS Nursing Documentation NIHSS Nursing Documentation: NIH Stroke Scale Start: 06/18/25 09:40 Freq: Status: Discharge Protocol: Activity Type Activity Date Activity User E-sign Co-sign Detail Recorded Client Recorded Date Recorded By Document 06/18/25 09:41 [place] [id number] 06/18/25 09:41 HO 06/18/25 09:41 NIH Stroke Scale [NIHSS] A score of 0 is normal or asymptomatic . Total possible score is 42. Inpatient: RN or Physician to activate a stroke alert for onset of new stroke symptoms or with NIHSS increase >/= 3 points. Following change in neurological status, NIHSS will be performed per physician order or more frequently PRN. -1a. Level of Consciousness 0 - Alert; keenly responsive -1b. LOC Questions 0 - Answers BOTH questions correctly -1c. LOC Commands 0 - Performs BOTH tasks correctly -2. Best Gaze 0 - Normal -3. Visual 0 - No visual loss -4. Facial Palsy 0 - Normal symmetrical movements -5a. Left Arm 0 - No drift; arm holds 90 ( or 45) degrees for full 10 seconds -5b. Right Arm 0 - No drift; arm holds 90 ( or 45) degrees for full 10 seconds -6a. Left Leg 0 - No drift; leg holds 30- degree position for full 5 seconds -6b. Right Leg 0 - No drift; leg holds 30- degree position for full 5 seconds -7. Limb Ataxia 0 - Absent -8. Sensory 0 - Normal; no sensory loss -9. Best Language 0 - No aphasia; normal -10. Dysarthria 0 - Normal -11. Extinction and Inattention 0 - No abnormality -Total 0 Query Text:A score of 0 is normal or asymptomatic. Total possible score is 42 . ED: Notify Physician for NIHSS increase by > / = 3 points. Inpatient: RN or Physician to activate a stroke alert for NIHSS increase of > / = 3 points. NIHSS: Ischemic Stroke/TIA Start: 06/18/25 12:35 Text: For PCU Patients: NIH and Neuro Check every 4 Status: Complete hours, PRN and with change in RN caregiver. Freq: [id number] Protocol: Activity Type Activity Date Activity User E-sign Co-sign Detail Recorded Client Recorded Date Recorded By Document 06/18/25 20:15 JAY JAY [id number] 06/18/25 20:15 06/18/25 20:15 -1a. Level of Consciousness 0 - Alert; keenly responsive -1b. LOC Questions 0 - Answers BOTH questions correctly -1c. LOC Commands 0 - Performs BOTH tasks correctly -2. Best Gaze 0 - Normal -3. Visual 0 - No visual loss -4. Facial Palsy 0 - Normal symmetrical movements -5a. Left Arm 0 - No drift; arm holds 90 ( or 45) degrees for full 10 seconds -5b. Right Arm 0 - No drift; arm holds 90 ( or 45) degrees for full 10 seconds -6a. Left Leg 0 - No drift; leg holds 30- degree position for full 5 seconds -6b. Right Leg 0 - No drift; leg holds 30- degree position for full 5 seconds -7. Limb Ataxia 0 - Absent -8. Sensory 0 - Normal; no sensory loss -9. Best Language 0 - No aphasia; normal -10. Dysarthria 0 - Normal -11. Extinction and Inattention 0 - No abnormality -Total 0 Query Text:A score of 0 is normal or asymptomatic. Total possible score is 42 . ED: Notify Physician for NIHSS increase by > / = 3 points. Inpatient: RN or Physician to activate a stroke alert for NIHSS increase of > / = 3 points. Coma Scale [Assess] -Eye Opening Spontaneous -Motor Obeys Commands -Verbal Oriented [Total] -Coma Scale Total 15
--- NOTE | 2025-06-19 11:26 | CASEMGMT ---
Noted that ST is recommending additional therapy for the pt ([facility]). See [facility]. JOSE CM to the pt room at this time. Pt sitting up in the bed and is A&Ox4. Pt states that she lives alone. Pt states that she uses a FWW or a cane for ambulation. Pt states that she does not have very much support at home and that she also does not drive. Pt states that she has used public transportation services in the past. Pt appears to have done well with PT, see notes. Inquired if the pt would be able to get in and out of the [facility] independently. Pt states that she is unsure if she can do that as she would need her FWW or cane. Pt also states that she does not have a PCP currently because she was unhappy with her previous provider. Pt requesting assistance with new PCP establishment. Pt educated that HHC is not an option currently as the pt does not have a PCP. Pt educated about OP ST options and pt states that she prefers [facility]. SW notified and plans to follow up regarding PCP, transportation, and ST needs/barriers.
--- NOTE | 2025-06-19 12:30 | CASEMGMT ---
Social Work CHRIS met with pt to discuss discharge plan. SW discussed PCP with pt. Pt states that she met with UNEMPL[employer] CLAIM[employer] TAKER at [facility] and did not like her and would not return. SW explained that upon review of pt's insurance website, [facility] is the only [facility] PCP in network with pt insurance. Pt states she will consider returning to [facility] but not to this [employer]EMPLOY[employer]EF[employer] CLAIMS TAKER. Pt is not open to going out of the [facility] for PCP services. CHRIS provided pt with written instruction to call [facility] to make an appointment for PCP. SW also spoke with pt regarding recommendations for continuation of speech therapy. Due to no PCP, pt cannot receive home health. SW discussed pt going to [facility] for outpt ST. Pt is willing but concerned with transportation. SW explained [facility] [email or web address] for transportation and pt is agreeable to go to [facility] for ST with use of [employer] [facility]. Referral faxed to [employer] and CHRIS requested they set up appointment with van and call pt with scheduled appointment time. This information provided to pt in writting. Pt states she does not have a ride home. Pt is able to ambulate but uses a walker and does not have her walker with her. Pt states she cannot get into the house unassisted once she returns home due to no walker. SW assisted pt in calling her friend Lucie to check on transport availability. No answer and message left. CHRIS spoke with [employer] who is agreeable to pick pt up and take pt home and will assist pt in the home. supervisor [employer] time is arranged for 12:40. Pt notified and is agreeable and able to pay the $3 fee. Nursing updated regarding transport. No other DC needs. ALEXANDER Us
[2025-06-19 12:34] VITALS: BP 118/58; PULSE 67; RESP 17; TEMP 36.8; O2SAT 98
[2025-06-19 12:35] VITALS: BMI 30.6
--- NOTE | 2025-06-19 14:50 | CASEMGMT ---
Social Work Per nursing, when pt arrived at main entrance, [facility] had already left pt. Nursing staff arranged for [facility] Van to transport pt home. CHRIS call [facility] who states the road driver waited 10 minutes and pt did not arrive for transport. [facility] offered to come back for pt. CHRIS cancelled transport as [facility] Van took pt home. ALEXANDER Us
--- NOTE | 2025-06-20 11:07 | CASEMGMT ---
Social Work SW recevied message from [facility] that they are not in network with pt insurance and therefore cannot provide outpatient Speech Therapy services. Phone call to pt and SW explained this. Pt does not have transportation and all other outpt ST options are out of the area. Pt does not want to pursue additional speech therapy at this time due to this barrier. Pt does not want to pay for rides. Pt does not have a PCP and therefore home health ST cannot be arranged. SW did speak with pt again about importance of getting established with a PCP and that [facility] is in network with insurance. Pt agreeable to call [facility] to set up PCP. ALEXANDER Us
== END 2025-06-19 12:47 | disposition home or self-care (01) ==
LOC: ED 11:46 → PCU 12:15
PROVIDERS: Admitting Provider Internal Medicine; Emergency Provider Emergency Medicine; Visit Provider Internal Medicine
DX: R20.2 Paresthesia of skin (principal); E11.621 Type 2 diabetes mellitus with foot ulcer; L97.519 Non-pressure chronic ulcer of other part of right foot with unspecified severity; L97.419 Non-pressure chronic ulcer of right heel and midfoot with unspecified severity; F03.90 Unspecified dementia, unspecified severity, without behavioral disturbance, psychotic disturbance, mood disturbance, and anxiety; E11.40 Type 2 diabetes mellitus with diabetic neuropathy, unspecified; E78.5 Hyperlipidemia, unspecified; Z79.84 Long term (current) use of oral hypoglycemic drugs; I10 Essential (primary) hypertension; R41.0 Disorientation, unspecified; Z79.899 Other long term (current) drug therapy; Z79.82 Long term (current) use of aspirin; R94.31 Abnormal electrocardiogram [ECG] [EKG]; I44.0 Atrioventricular block, first degree; F32.A Depression, unspecified; F41.9 Anxiety disorder, unspecified; B35.1 Tinea unguium; E03.9 Hypothyroidism, unspecified; Z79.890 Hormone replacement therapy; I49.8 Other specified cardiac arrhythmias; R06.09 Other forms of dyspnea
CPT/HCPCS: 36415; 70450; 70496; 70498; 70551; 80048; 80061; 82962; 83036; 83735; 84443; 84484; 85025; 85610; 85730; 92523; 93005; 93306; 94668; 94762; 96360; 96361; 96372; 97162; 97166; 97802; 99221; 99285; Q9957; Q9967; A4216; G0378